=== PATIENT | male | born 1955 | race Caucasian/White ===

== ENCOUNTER 2020-06-19 07:21 | Emergency (ER) | payer OTHER, SELFPAY ==
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
[2020-06-19 07:44] VITALS: BP 152/66; PULSE 77; RESP 18; TEMP 36.7; O2SAT 100; BMI 17.2
== END 2020-06-19 08:14 | disposition home or self-care (01) ==
PROVIDERS: Emergency Provider Emergency Medicine; PCP Pediatrics
DX: Z04.2 Encounter for examination and observation following work accident (principal); L24.5 Irritant contact dermatitis due to other chemical products; E11.9 Type 2 diabetes mellitus without complications; I10 Essential (primary) hypertension; F17.200 Nicotine dependence, unspecified, uncomplicated
CPT/HCPCS: 99283; 99284

== ENCOUNTER 2022-10-25 07:31 | Outpatient (REF) | payer OTHER, MEDICAID, SELFPAY ==
[2022-10-25 11:21] LABS: MANUAL DIFF FLAG NO
[2022-10-25 12:02] LABS: Basophils Absolute Auto 0.1 X10*3/uL (0.0-0.2); Basophils Percent Auto 0.7 % (0-2); Eosinophils Absolute Auto 0.2 X10*3/uL (0.0-0.4); Eosinophils Percent Auto 1.7 % (0-4); Hematocrit 42.2 % (42.0-52.0); Hemoglobin 14.2 g/dl (14.0-18.0); Imm Gran Abs Auto 0.05 X10*3/uL (0.00-0.03); Imm Gran Pct Auto 0.5 % (0.0-0.4); Lymphocytes Percent Auto 19.3 % (20-40); Mean Corpuscular HGB Conc 33.6 g/dl (31.0-36.0); Mean Corpuscular Hemoglobin 30.9 pg (27.0-33.0); Mean Corpuscular Volume 91.9 fL (80.0-98.0); Mean Platelet Volume 10.8 fL (9.4-12.4); Monocytes Percent Auto 9.5 % (2-11); Neutrophils Absolute Auto 7.1 x10*3/uL (2.0-8.3); Neutrophils Percent Auto 68.3 % (45-73); Platelet Count 283 X10*3/uL (160-400); Red Blood Count 4.59 X10*6/uL (4.60-5.80); White Blood Count 10.4 X10*3/uL (4.8-10.8)
== END 2022-10-25 07:32 | disposition home or self-care (01) ==
LOC: HO.WFDLDS 07:31
PROVIDERS: Visit Provider Family Medicine
DX: Z00.00 Encounter for general adult medical examination without abnormal findings (principal); Z20.2 Contact with and (suspected) exposure to infections with a predominantly sexual mode of transmission
CPT/HCPCS: 36415; 80053; 80061; 84153; 84443; 85025

== ENCOUNTER 2022-10-29 07:44 | Outpatient (REF) | payer OTHER, MEDICAID, SELFPAY ==
[2022-10-29 12:54] LABS: Appearance Urine Clear; Color Urine Yellow; Glucose Urine UA Negative (Negative); Leukocyte Esterase Urine Negative (Negative); Nitrite Urine Negative (Negative); PH 6.5 (5.0-9.0); Urine Blood Negative (Negative); Urine Ketones Negative (Negative); Urine Protein Negative (Neg-Trace)
[2022-10-29 14:09] LABS: Creatinine Urine 50.99 mg/dL; Microalbum/Creatinine Ratio Ur 11.7 ug/mg cr
== END 2022-10-29 07:45 | disposition home or self-care (01) ==
LOC: HO.WFDLDS 07:44
PROVIDERS: Visit Provider Family Medicine
DX: Z00.00 Encounter for general adult medical examination without abnormal findings (principal); I10 Essential (primary) hypertension
CPT/HCPCS: 81003; 82043

== ENCOUNTER → 2022-11-12 12:37 | Outpatient (BNVA) | payer OTHER, MEDICAID, SELFPAY | PROVIDERS: PCP Family Medicine; Visit Provider Physician Assistant | DX: R63.6 Underweight (principal); R63.4 Abnormal weight loss; R05.9 Cough, unspecified; R10.9 Unspecified abdominal pain; I35.0 Nonrheumatic aortic (valve) stenosis; F17.210 Nicotine dependence, cigarettes, uncomplicated; Z68.1 Body mass index [BMI] 19.9 or less, adult | CPT/HCPCS: 99202 ==

== ENCOUNTER 2023-07-17 10:38 | Outpatient (AMB) | payer OTHER, MEDICAID, SELFPAY ==
[2023-07-17 10:52] VITALS: BP 122/70; PULSE 81; RESP 13; TEMP 36.4; O2SAT 99; BMI 15.1
--- NOTE | 2023-07-17 10:52 | MHC.PC.OV ---
Vital Signs 07/17/23 10:52 Height 5 ft 10 in Weight 105 lb BMI 15.1 BP 122/70 Blood Pressure Location Rt brachial Position Sitting Respiration 13 Pulse 81 Pulse Source Pulse Oximeter Temp 97.5 F Temp Source Temporal Artery Scan Pulse Oximetry (%) 99 Oxygen Delivery Method Room Air Intake Visit Reasons: gastro referral Flat Cutter Required: Yes Accompanied by: Self / Same As Patient Allergies No Known Allergies Allergy (Verified 07/17/23 10:58) Tobacco use date assessed: 07/17/23 Last assessed Fall Risk: 07/17/23 Dental Screening Dental Screen Date: 07/17/23 Did you have a dental visit in the last 12 months?: No Did you have a dental problem in the last 6 months where you did not have access to dental care?: No Was dental information given to patient?: Yes HPI gastro referral HPI Details 68 y/o male presents today to discuss gastro referral. Being treated for lung CA, given 5 cycles of pembrolizumab. Was on hold due to elev. LFTs. Had seen [facility] for abnormal LFTs. Weight is improving. [facility] Medical History (Updated 07/17/23 @ 11:54 by Omar Fernando) Back pain Irregular heartbeat Scoliosis Hypertension Surgical History No pertinent past surgical history Family History Mother Diabetes Father Colon cancer Bladder cancer Social History Housing: Apartment Alcohol intake: unknown Patient Tobacco Use Status: Former Tobacco user Tobacco use type: Cigarette Cigarettes Per Day: 3 Years Smoked: 50 e-Cigarette/Vaping Use: Never Used service: No Current occupational status: retired Cognitive needs: No Hearing needs: No Vision needs: No Review of Systems Const Denies chills, Denies fatigue, Denies fever(s), Denies headache(s) and Denies weakness ENT Denies dizziness and Denies headache(s) Card Denies dyspnea Resp Denies cough, Denies dyspnea, Denies wheezing and Denies other (shortness of breath) Musc Denies numbness and Denies tingling Neuro Denies dizziness, Denies headache(s), Denies numbness, Denies tingling and Denies weakness Psych Denies anxiety and Denies depression Endo Denies fatigue Aller/Immun Denies wheezing Physical exam (Primary Care) Vital Signs: Last Vital Signs Temp 97.5 F 07/17/23 10:52 Pulse 81 07/17/23 10:52 Resp 13 07/17/23 10:52 BP 122/70 07/17/23 10:52 Pulse Ox 99 07/17/23 10:52 Oxygen Delivery Method Room Air 07/17/23 10:52 BMI result Body Mass Index 15.1 Tobacco/Smoking Status: Tobacco use Status Tobacco use date assessed 07/17/23 07/17/23 11:09 Patient Tobacco Use Status Former Tobacco user 07/17/23 11:09 Tobacco use type Cigarette 07/17/23 10:59 e-Cigarette/Vaping Use Never Used 07/17/23 10:59 Const General: well developed; No acute distress Nutritional Appearance: underweight Orientation/consciousness: patient oriented x3 HENMT Head: Yes normocephalic and Yes atraumatic Eyes General: appearance normal, both eyes and all related structures Pupils: Equal, round and reactive pupils present EOM: EOMs intact bilaterally Resp Effort & Inspection: normal respiratory effort Neuro General: patient oriented x3 and gait normal Cranial nerves: Yes Equal, round and reactive pupils present Psych Affect: normal affect Assessment and Plan Assessment & Plan (1) Abnormal LFTs: Code(s): R79.89 - Other specified abnormal findings of blood chemistry Plan: LFTs?had?been?significantly?elevated,?likely?secondary?to?his?chemotherapy?which?was?held. Most?recent?LFTs?are?back?in?normal?range. Referring?him?to??as?per?patient?request. (2) Pancoast tumor of right lung: Code(s): C34.11 - Malignant neoplasm of upper lobe, right bronchus or lung Plan: Followed?by? Recently?had?his?chemotherapy?held?due?to?elevations?in?his?liver?enzymes?and?these?are?back?within?normal?range. Follow-up?with??as?recommended (3) Underweight: Code(s): R63.6 - Underweight Plan: Significantly?underweight?secondary?to?malignancy?as?well?as?COPD. He?is?using?[employer]?instant?breakfast?for?additional?calories. Was?unable?to?afford?Ensure. Continue?the?above Orders: Referrals Gastroenterology Referral C34.90 - Malignant neoplasm of unspecified part of unspecified bronchus or lung, R10.9 - Unspecified abdominal pain, R79.89 - Other specified abnormal findings of blood chemistry, Z12.11 - Encounter for screening for malignant neoplasm of colon Coding Level of Care Code Est Pt Level 4 (44281) Diagnoses Abnormal LFTs R79.89 Pancoast tumor of right lung C34.11 Underweight R63.6
== END 2023-07-17 12:10 | disposition home or self-care (01) ==
PROVIDERS: PCP Family Medicine; Visit Provider Family Medicine
DX: R79.89 Other specified abnormal findings of blood chemistry (principal); C34.11 Malignant neoplasm of upper lobe, right bronchus or lung; R63.6 Underweight
CPT/HCPCS: 99214

== ENCOUNTER 2023-08-14 12:37 | Outpatient (AMB) | payer OTHER, SELFPAY ==
[2023-08-14 13:15] VITALS: BP 98/62; PULSE 110; RESP 12; TEMP 36.9; O2SAT 100
--- NOTE | 2023-08-14 13:15 | MHC.PC.OV ---
Vital Signs 08/14/23 13:15 Weight 100 lb BP 98/62 Blood Pressure Location Lt brachial Position Sitting Respiration 12 Pulse 110 H Pulse Source Auscultation Temp 98.5 F Temp Source Temporal Artery Scan Pulse Oximetry (%) 100 Intake Visit Reasons: issue with stools Intake Note: Patient is having diarrhea, sometimes small rounds of BM. Allergies No Known Allergies Allergy (Verified 08/14/23 13:24) Medication List - Last Reconciled 08/14/23 by Rohan Kong MD albuterol sulfate 90 mcg/actuation (ProAir HFA) 2 puffs inhalation Q4-6H PRN 30 days gabapentin 100 mg PO BEDTIME ibuprofen 400 mg PO Q8H mycophenolate mofetil 1,000 mg PO DAILY oxycodone 10 mg PO DAILY PRN pantoprazole 20 mg PO DAILY sulfamethoxazole-trimethoprim 800-160 mg 1 tab orally Fri, Fri, Friday; Tobacco use date assessed: 08/14/23 Fall risk assessment: No Falls in past year Last assessed Fall Risk: 08/14/23 Dental Screening Dental Screen Date: 08/14/23 Did you have a dental visit in the last 12 months?: No Did you have a dental problem in the last 6 months where you did not have access to dental care?: No Was dental information given to patient?: Patient declined HPI issue with stools HPI Details 68 y/o male presents with complaints of abnormal stools. He reports yellow, fluff stools. Pt denies any abdominal pain. He denies any nausea/vomiting. He denies any blood in stool. [facility] Medical History Back pain Irregular heartbeat Scoliosis Hypertension Surgical History No pertinent past surgical history Family History Mother Diabetes Father Colon cancer Bladder cancer Social History Housing: Apartment Alcohol intake: unknown Patient Tobacco Use Status: Former Tobacco user Tobacco use type: Cigarette Cigarettes Per Day: 3 Years Smoked: 50 e-Cigarette/Vaping Use: Never Used service: No Current occupational status: retired Cognitive needs: No Hearing needs: No Vision needs: No Questionnaire PHQ-9 Over the last 2 weeks, how often have you been bothered by any of the following problems? 1. Little interest or pleasure in doing things: not at all 2. Feeling down, depressed, or hopeless: not at all 3. Trouble falling or staying asleep, or sleeping too much: not at all 4. Feeling tired or having little energy: not at all 5. Poor appetite or overeating: not at all 6. Feeling bad about yourself - or that you are a failure or have let yourself or your family down: not at all 7. Trouble concentrating on things, such as reading the newspaper or watching television: not at all 8. Moving or speaking so slowly that other people could have noticed. Or the opposite - being so fidgety or restless that you have been moving around a lot more than usual: not at all 9. Thoughts that you would be better off or of hurting yourself in some way: not at all Total score: 0 Source: Developed by Drs. Chito Rodríguez, Angeles Chen, Aayush Lamas and colleagues, with an educational alex from [employer]. Thrive Questionnaire Date Thrive assessed: 08/14/23 I am a: Patient What is your living situation today?: I have a steady place to live Within the past 12 months, did the food you bought not last and you didn't have the money to get more?: Never true Within the past 12 months, did you worry whether your food would run out before you got money to buy more?: Never true Do you have trouble paying for medicines?: No Do you have trouble getting transportation to medical appointments?: No Do you have trouble paying your heating and electricity bill?: No Do you have trouble taking care of your child, family member or friend?: No Do you have trouble with day-to-day activities such as bathing, preparing meals, shopping, managing finances, etc.?: No Are you currently unemployed and looking for a job?: No Are you interested in more education?: No THRIVE Score: 0 AUDIT C Alcohol Use Questionnaire (AUDIT-C) 1. How often do you have a drink containing alcohol?: Never 3. How often do you have six or more drinks on one occasion?: Never Total Score: 0 JOAQUIN-7 AMB Questionnaire JOAQUIN-7 Date JOAQUIN - 7 assessed: 08/14/23 Feeling nervous, anxious, or on edge: 0 = Not at all Not being able to stop or control worryin = Not at all Worrying too much about different things: 0 = Not at all Trouble relaxin = Not at all Being so restless that it is hard to sit still: 0 = Not at all Becoming easily annoyed or irritable: 0 = Not at all Feeling afraid as if something awful might happen: 0 = Not at all Total JOAQIUN-7 score (0-4 normal; 5-9 mild; 10-14 moderate; 15-21 severe): 0 Source: Developed by Drs. Chito Rodríguez, Angeles Chen, Aayush Lamas and colleagues, with an educational alex from [employer]. Review of Systems Const Denies chills, Denies fatigue, Denies fever(s), Denies headache(s) and Denies weakness ENT Denies dizziness and Denies headache(s) Card Denies dyspnea Resp Denies cough, Denies dyspnea, Denies wheezing and Denies other (shortness of breath) Musc Denies numbness and Denies tingling Neuro Denies dizziness, Denies headache(s), Denies numbness, Denies tingling and Denies weakness Psych Denies anxiety and Denies depression Endo Denies fatigue Aller/Immun Denies wheezing Physical exam (Primary Care) Vital Signs: Last Vital Signs Temp 98.5 F 08/14/23 13:15 Pulse 110 H 08/14/23 13:15 Resp 12 08/14/23 13:15 BP 98/62 08/14/23 13:15 Pulse Ox 100 08/14/23 13:15 Tobacco/Smoking Status: Tobacco use Status Tobacco use date assessed 08/14/23 08/14/23 13:25 Patient Tobacco Use Status Former Tobacco user 08/14/23 13:22 Tobacco use type Cigarette 08/14/23 13:22 e-Cigarette/Vaping Use Never Used 08/14/23 13:22 PHQ-9: PHQ-9 Score PHQ-9: Total score 0 08/14/23 13:34 Thrive Assessment: Date of Thrive Assessment Date Thrive assessed 08/14/23 08/14/23 13:27 Const General: well developed; No acute distress Nutritional Appearance: well nourished Orientation/consciousness: patient oriented x3 [facility] Head: Yes normocephalic and Yes atraumatic Eyes General: appearance normal, both eyes and all related structures Pupils: Equal, round and reactive pupils present EOM: EOMs intact bilaterally Resp Effort & Inspection: normal respiratory effort Neuro General: patient oriented x3 and gait normal Cranial nerves: Yes Equal, round and reactive pupils present Psych Affect: normal affect Assessment and Plan Assessment & Plan (1) Colitis: Code(s): K52.9 - Noninfective gastroenteritis and colitis, unspecified Plan: Patient?has?been?on?pembrolizumab, an?immune?checkpoint?inhibitor, and?developed?ICPI mediated transaminitis?and?likely mild?colitis. ?This?was?discontinued?and?he?was?put?on?CellCept?which?is?being?tapered?down. As?it?is?being?tapered?down,?diarrhea has begun. Will?rule?out?infection;?Will?check?stool?studies?including?C?diff?and?leukocyte.??Checking?GI?panel. However,?patient?has?no?pain?and?no?blood?in?stools. Will?give?him?a?short?course?of?prednisone. Hydrate?well Avoid?GI?irritants?such?as?acidic?foods.??Avoid?dairy. He?has?an?upcoming?appointment?with?his?Hematology-Oncology?specialist?and?should?follow-up?with?them. (2) Abnormal stools: Code(s): R19.5 - Other fecal abnormalities Plan: As?above Orders: Orders CDiff Gene PCR Today R19.7 - Diarrhea, unspecified Leukocytes Stool Qualitative Today R19.5 - Other fecal abnormalities, R19.7 - Diarrhea, unspecified Comprehensive Met. Panel Today R19.7 - Diarrhea, unspecified Complete Blood Count Auto Diff Today R19.7 - Diarrhea, unspecified, Z00.00 - Encounter for general adult medical examination without abnormal findings GI Panel Today R19.7 - Diarrhea, unspecified Coding Level of Care Code Est Pt Level 3 (61916) Diagnoses Colitis K52.9 Abnormal stools R19.5
== END 2023-08-14 14:21 | disposition home or self-care (01) ==
PROVIDERS: PCP Family Medicine; Visit Provider Family Medicine
DX: K52.9 Noninfective gastroenteritis and colitis, unspecified (principal); R19.5 Other fecal abnormalities
CPT/HCPCS: 99213

== ENCOUNTER 2023-08-18 12:23 | Outpatient (REF) | payer OTHER, SELFPAY ==
[2023-08-18 13:23] LABS: Leukocytes Stool Qualitative NEGATIVE (NEGATIVE)
[2023-08-18 13:46] LABS: CDiff Gene PCR NEGATIVE (Negative)
[2023-08-18 14:55] LABS: Adenovirus F 40/41 Not Detected (Not Detect.); Astrovirus Not Detected (Not Detect.); Campylobacter Not Detected (Not Detect.); Cryptosporidium Not Detected (Not Detect.); Cyclospora cayetanensis Not Detected (Not Detect.); E. coli EAEC Not Detected (Not Detect.); E. coli EPEC Not Detected (Not Detect.); E. coli ETEC Not Detected (Not Detect.); E. coli STEC Not Detected (Not Detect.); Entamoeba histolytica Not Detected (Not Detect.); Giardia lamblia Not Detected (Not Detect.); Norovirus GI/GII Not Detected (Not Detect.); Plesiomonas shigelloides Not Detected (Not Detect.); Rotavirus A Not Detected (Not Detect.); Salmonella Not Detected (Not Detect.); Sapovirus Not Detected (Not Detect.); Shigella sp./EIEC Not Detected (Not Detect.); Vibrio Not Detected (Not Detect.); Vibrio Cholerae Not Detected (Not Detect.); Yersinia enterocolitica Not Detected (Not Detect.)
== END 2023-08-18 12:24 | disposition home or self-care (01) ==
LOC: HO.LNP 12:23
PROVIDERS: Visit Provider Family Medicine
DX: R19.7 Diarrhea, unspecified (principal); R19.5 Other fecal abnormalities
CPT/HCPCS: 87493; 87507; 89055

== ENCOUNTER 2023-10-16 08:44 | Outpatient (AMB) | payer OTHER, SELFPAY ==
--- NOTE | 2023-10-16 09:01 | MHC.PC.OV ---
Vital Signs 10/16/23 09:02 Height 5 ft 10 in Weight 96 lb 2 oz BMI 13.8 BP 100/60 Blood Pressure Location Rt brachial Position Sitting Pulse 65 Pulse Source Pulse Oximeter Pulse Oximetry (%) 98 Oxygen Delivery Method Room Air Intake Visit Reasons: f/u chronic conditions Intake Note: Patient is here for follow up on chronic conditions. Allergies No Known Allergies Allergy (Verified 10/16/23 09:05) Medication List - Last Reconciled 10/16/23 by Rohan Kong MD albuterol sulfate 90 mcg/actuation (ProAir HFA) 2 puffs inhalation Q4-6H PRN 30 days gabapentin 100 mg PO BEDTIME ibuprofen 400 mg PO Q8H [id number] 12,000-38,000 -60,000 unit (Creon) 1 cap PO TID loperamide (Anti-Diarrheal (loperamide)) 2 mg PO Q6H PRN 30 days mycophenolate mofetil 1,000 mg PO DAILY oxycodone 10 mg PO DAILY PRN pantoprazole 20 mg PO DAILY prednisone 40 mg (2 x 20 mg) PO DAILY 4 days Tobacco use date assessed: 10/16/23 Fall risk assessment: No Falls in past year Last assessed Fall Risk: 10/16/23 Dental Screening Dental Screen Date: 08/14/23 HPI f/u chronic conditions HPI Details 68 y/o male presents to f/u chronic conditions. 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 They plan to see pt in [address] scans. Has lost some weight since visit on 08/14/23 - from 100lbs to 96 lbs. He states he is tolerating food and is on Creon [facility] Medical History Back pain Irregular heartbeat Scoliosis Hypertension Surgical History No pertinent past surgical history Family History Mother Diabetes Father Colon cancer Bladder cancer Social History Housing: Apartment Alcohol intake: unknown Patient Tobacco Use Status: Former Tobacco user Tobacco use type: Cigarette Cigarettes Per Day: 3 Years Smoked: 50 e-Cigarette/Vaping Use: Never Used service: No Current occupational status: retired Cognitive needs: No Hearing needs: No Vision needs: No Questionnaire Thrive Questionnaire Date Thrive assessed: 08/14/23 JOAQUIN-7 AMB Questionnaire JOAQUIN-7 Date JOAQUIN - 7 assessed: 08/14/23 Source: Developed by Drs. Chito Rodríguez, Angeles Chen, Aayush Lamas and colleagues, with an educational alex from [employer]. Review of Systems Const Denies chills, Denies fatigue, Denies fever(s), Denies headache(s) and Denies weakness ENT Denies dizziness and Denies headache(s) Card Denies dyspnea Resp Denies cough, Denies dyspnea, Denies wheezing and Denies other (shortness of breath) Musc Denies numbness and Denies tingling Neuro Denies dizziness, Denies headache(s), Denies numbness, Denies tingling and Denies weakness Psych Denies anxiety and Denies depression Endo Denies fatigue Aller/Immun Denies wheezing Physical exam (Primary Care) Vital Signs: Last Vital Signs Pulse 65 10/16/23 09:02 BP 100/60 10/16/23 09:02 Pulse Ox 98 10/16/23 09:02 Oxygen Delivery Method Room Air 10/16/23 09:02 BMI result Body Mass Index 13.8 Tobacco/Smoking Status: Tobacco use Status Tobacco use date assessed 10/16/23 10/16/23 09:08 Patient Tobacco Use Status Former Tobacco user 10/16/23 09:08 Tobacco use type Cigarette 10/16/23 09:08 e-Cigarette/Vaping Use Never Used 10/16/23 09:08 Thrive Assessment: Date of Thrive Assessment Date Thrive assessed 08/14/23 10/16/23 09:08 Const General: well developed; No acute distress Nutritional Appearance: underweight Orientation/consciousness: patient oriented x3 HENMT Head: Yes normocephalic and Yes atraumatic Eyes General: appearance normal, both eyes and all related structures Pupils: Equal, round and reactive pupils present EOM: EOMs intact bilaterally Resp Effort & Inspection: normal respiratory effort Auscultation: clear to auscultation bilaterally Cardio Rate: regular rate Rhythm: regular rhythm Heart sounds: S1 normal heart sound present, S2 normal heart sound present, no gallops, no murmurs and no rubs Neuro General: patient oriented x3 and gait normal Cranial nerves: Yes Equal, round and reactive pupils present Psych Affect: normal affect Assessment and Plan Assessment & Plan (1) Adenocarcinoma of right lung: Code(s): C34.91 - Malignant neoplasm of unspecified part of right bronchus or lung Plan: Saw?Hematology-Oncology?recently?and?no?progression?of?disease Breathing?easily No?longer?smokes Takes?his?medications?for?COPD Follow-up?with?Heme-Onc?as?recommended (2) Underweight: Code(s): R63.6 - Underweight Plan: Still?significantly?underweight?and?lost?a?few?more?lb. He?has?protein?shakes?and?is?beginning?to?eat?well?since?starting?Creon, pancreatic?enzyme Encouraged?plenty?of?high-calorie?foods?as?tolerated?and?continue?Creon Continue?protein?shakes Will?follow (3) COPD (chronic obstructive pulmonary disease): Code(s): J44.9 - Chronic obstructive pulmonary disease, unspecified Plan: As?above,?patient?is?breathing?easily?and?taking?his?inhaled?medication Coding Level of Care Code Est Pt Level 3 (24908) Diagnoses Adenocarcinoma of right lung C34.91 Underweight R63.6 COPD (chronic obstructive pulmonary disease) J44.9
[2023-10-16 09:02] VITALS: BP 100/60; PULSE 65; O2SAT 98; BMI 13.8
== END 2023-10-16 09:35 | disposition home or self-care (01) ==
PROVIDERS: PCP Family Medicine; Visit Provider Family Medicine
DX: C34.91 Malignant neoplasm of unspecified part of right bronchus or lung (principal); R63.6 Underweight; J44.9 Chronic obstructive pulmonary disease, unspecified
CPT/HCPCS: 99213

== ENCOUNTER 2024-01-22 08:42 | Outpatient (AMB) | payer OTHER, SELFPAY ==
--- NOTE | 2024-01-22 08:59 | A.OFFPC_ITS ---
Vital Signs 01/22/24 09:04 Height 5 ft 10 in Weight 98 lb 2 oz BMI 14.1 BP 122/60 Blood Pressure Location Rt brachial Position Sitting Respiration 15 Pulse 87 Pulse Source Pulse Oximeter Temp 97.7 F Temp Source Temporal Artery Scan Pulse Oximetry (%) 96 Oxygen Delivery Method Room Air Intake Visit Reasons: f/u chronic conditions Intake Note: Patient has no concerns as of right now. Multiple Drum Sander Required: No Accompanied by: Self / Same As Patient Allergies No Known Allergies Allergy (Verified 01/22/24 09:11) Tobacco use date assessed: 10/16/23 Fall risk assessment: No Falls in past year Last assessed Fall Risk: 01/22/24 Dental Screening Dental Screen Date: 08/14/23 HPI f/u chronic conditions HPI Details 68 y/o male presents to f/u chronic cond itions. Has gained some weight and pt states he has been eating better. REPLACED BY [facility] Medical History Back pain Irregular heartbeat Scoliosis Hypertension Surgical History No pertinent past surgical history Family History Mother Diabetes Father Colon cancer Bladder cancer Social History Housing: Apartment Alcohol intake: unknown Patient Tobacco Use Status: Former Tobacco user Tobacco use type: Cigarette Cigarettes Per Day: 3 Years Smoked: 50 e-Cigarette/Vaping Use: Never Used service: No Current occupational status: retired Cognitive needs: No Hearing needs: No Vision needs: No Questionnaire PHQ-9 Over the last 2 weeks, how often have you been bothered by any of the following problems? 1. Little interest or pleasure in doing things: not at all 2. Feeling down, depressed, or hopeless: not at all 3. Trouble falling or staying asleep, or sleeping too much: not at all 4. Feeling tired or having little energy: not at all 5. Poor appetite or overeating: not at all 6. Feeling bad about yourself - or that you are a failure or have let yourself or your family down: not at all 7. Trouble concentrating on things, such as reading the newspaper or watching television: not at all 8. Moving or speaking so slowly that other people could have noticed. Or the opposite - being so fidgety or restless that you have been moving around a lot more than usual: not at all 9. Thoughts that you would be better off or of hurting yourself in some way: not at all Total score: 0 Depression Screening Interpretation: Negative Depression Screening Done: Yes 17782 - PHQ-9 Billing: Yes Source: Developed by Drs. Chito Rodríguez, Angeles Chen, Aayush Lamas and colleagues, with an educational alex from [employer]. Thrive Questionnaire Date Thrive assessed: 08/14/23 JOAQUIN-7 AMB Questionnaire JOAQUIN-7 Date JOAQUIN - 7 assessed: 01/22/24 Feeling nervous, anxious, or on edge: 0 = Not at all Not being able to stop or control worryin = Not at all Worrying too much about different things: 0 = Not at all Trouble relaxin = Not at all Being so restless that it is hard to sit still: 0 = Not at all Becoming easily annoyed or irritable: 0 = Not at all Feeling afraid as if something awful might happen: 0 = Not at all Total JOAQUIN-7 score (0-4 normal; 5-9 mild; 10-14 moderate; 15-21 severe): 0 Source: Developed by Drs. Chito Rodríguez, Angeles Chen, Aayush Lamas and colleagues, with an educational alex from [employer]. JOAQUIN-7 Assessment Billing JOAQUIN-7 Assessment Tool: JOAQUIN-7 Assessment 39500 Review of Systems Const Denies chills, Denies fatigue, Denies fever(s), Denies headache(s) and Denies weakness ENT Denies dizziness and Denies headache(s) Card Denies chest pain, Denies lightheadedness, Denies dyspnea and Denies other (Palpitations) Resp Denies cough, Denies dyspnea, Denies wheezing and Denies other ( shortness of breath) Musc Denies numbness and Denies tingling Neuro Denies dizziness, Denies headache(s), Denies numbness, Denies tingling, Denies paresthesias and Denies weakness Psych Denies anxiety and Denies depression Endo Denies fatigue Aller/Immun Denies wheezing Physical exam (Primary Care) Vital Signs: Last Vital Signs Temp 97.7 F 01/22/24 09:04 Pulse 87 01/22/24 09:04 Resp 15 01/22/24 09:04 BP 122/60 01/22/24 09:04 Pulse Ox 96 01/22/24 09:04 Oxygen Delivery Method Room Air 01/22/24 09:04 BMI result Body Mass Index 14.1 Tobacco/Smoking Status: Tobacco use Status Tobacco use date assessed 10/16/23 01/22/24 09:01 Patient Tobacco Use Status Former Tobacco user 01/22/24 09:01 Tobacco use type Cigarette 01/22/24 09:01 e-Cigarette/Vaping Use Never Used 01/22/24 09:01 PHQ-9: PHQ-9 Score PHQ-9: Total score 0 01/22/24 09:14 Depression Screening Interpretation: Negative Thrive Assessment: Date of Thrive Assessment Date Thrive assessed 08/14/23 01/22/24 09:01 Const General: no acute distress and well developed Nutritional Appearance: well nourished Orientation/consciousness: patient oriented x3 HENMT Head: Yes normocephalic and Yes atraumatic Eyes General: appearance normal, both eyes and all related structures Pupils: Equal, round and reactive pupils present EOM: EOMs intact bilaterally Resp Effort & Inspection: normal respiratory effort Auscultation: clear to auscultation bilaterally Cardio Rate: regular rate Rhythm: regular rhythm Heart sounds: S1 normal heart sound present, S2 normal heart sound present, no gallops, no murmurs and no rubs Neuro General: patient oriented x3 and gait normal Cranial nerves: Yes Equal, round and reactive pupils present Psych Affect: normal affect Assessment and Plan Assessment & Plan (1) Adenocarcinoma of right lung: Code(s): C34.91 - Malignant neoplasm of unspecified part of right bronchus or lung Plan: Followed?by ??and?patient?says?he?had?recent?visit?though?I?do?not?have?the?note.? ?Recent?CT?scan?December??and?patient?says?that??said?it?looked?stable .??Again,?I?do?not?have?the?report?but?will?request. Breathing?easy?and?patient?feels?well. Lungs?are?CTA (2) Weight loss: Comment: Abnormal, question etiology Code(s): R63.4 - Abnormal weight loss Plan: Weight?loss?has?stopped?and?patient?gained?back?a?couple?of?lb He?is?using?protein?supplement?drink?and?I?encouraged?this (3) Underweight: Code(s): R63.6 - Underweight Plan: Patient?remains?underweight?but?has?gained?back?a?couple?of?lb As?above,?encouraged?meals?on?wheels?and?supplement?drinks. Orders: Orders Comprehensive [place]. Panel Fast Today Z00.00 - Encounter for general adult medical examination without abnormal findings Lipid Panel Today Z00.00 - Encounter for general adult medical examination without abnormal findings Vitamin B12 and Folate Today E53.8 - Deficiency of other specified B group vitamins Complete Blood Count Auto Diff Today Z00.00 - Encounter for general adult medical examination without abnormal findings Microalbumin, Random (w Creat) Today I10 - Essential (primary) hypertension Prostate Specific Antigen Scr Today Z12.5 - Encounter for screening for malignant neoplasm of prostate TSH reflex Free T4 Today Z00.00 - Encounter for general adult medical examination without abnormal findings UA and rflx microscopic Today Z00.00 - Encounter for general adult medical examination without abnormal findings Vitamin D 25-OH Total Today E55.9 - Vitamin D deficiency, unspecified Coding Level of Care Code Est Pt Level 3 (31655) Diagnoses Adenocarcinoma of right lung C34.91 Weight loss R63.4 Underweight R63.6 Additional Codes JOAQUIN-7 Assessment Billing - JOAQUIN-7 Assessment Tool: JOAQUIN-7 Assessment 44852 ([id number])
[2024-01-22 09:04] VITALS: BP 122/60; PULSE 87; RESP 15; TEMP 36.5; O2SAT 96; BMI 14.1
== END 2024-01-22 12:05 | disposition home or self-care (01) ==
PROVIDERS: PCP Family Medicine; Visit Provider Family Medicine
DX: C34.91 Malignant neoplasm of unspecified part of right bronchus or lung (principal); R63.4 Abnormal weight loss; R63.6 Underweight
CPT/HCPCS: 99213

== ENCOUNTER 2024-01-29 07:47 | Outpatient (REF) | payer OTHER, SELFPAY ==
[2024-01-29 11:13] LABS: MANUAL DIFF FLAG NO
[2024-01-29 11:25] LABS: Appearance Urine Clear; Color Urine Yellow; Glucose Urine UA Negative (Negative); Leukocyte Esterase Urine Trace (Negative); Nitrite Urine Negative (Negative); PH 6.5 (5.0-9.0); Specific Gravity - Urine 1.015 (1.005-1.025); UMIC TRIGGER UA YES; Urine Blood Negative (Negative); Urine Ketones Negative (Negative); Urine Protein Negative (Neg-Trace)
[2024-01-29 11:30] LABS: Basophils Absolute Auto 0.1 X10*3/uL (0.0-0.2); Basophils Percent Auto 1.1 % (0-2); Eosinophils Absolute Auto 0.1 X10*3/uL (0.0-0.4); Hemoglobin 14.6 g/dl (14.0-18.0); Imm Gran Abs Auto 0.04 X10*3/uL (0.00-0.03); Imm Gran Pct Auto 0.4 % (0.0-0.4); Lymphocytes Absolute Auto 1.6 X10*3/uL (1.2-4.9); Mean Corpuscular Hemoglobin 31.4 pg (27.0-33.0); Mean Corpuscular Volume 92.5 fL (80.0-98.0); Mean Platelet Volume 10.6 fL (9.4-12.4); Monocytes Percent Auto 10.6 % (2-11); Neutrophils Absolute Auto 6.5 x10*3/uL (2.0-8.3); Neutrophils Percent Auto 69.9 % (45-73); Platelet Count 205 X10*3/uL (160-400); Red Blood Count 4.65 X10*6/uL (4.60-5.80); Red Cell Distribution Width 13.3 % (11.0-16.0); White Blood Count 9.3 X10*3/uL (4.8-10.8)
[2024-01-29 11:32] LABS: Bacteria Urine None Seen (None Seen); Hyaline Casts Urine 0-2 /LPF (0-2); RBC Urine 0-2 /HPF (0-2); Squamous Epithelial Cell Urine 0-2 /HPF (0-2); WBC Urine 0-5 /HPF (0-5)
[2024-01-29 11:48] LABS: Alanine Aminotransferase 30 U/L (0-40); Albumin Level 4.3 g/dL (3.5-5.0); Alkaline Phosphatase 148 U/L (39-117); Anion Gap 14 (12-20); Aspartate Amino Transferase 34 U/L (5-37); Bilirubin Total 0.7 mg/dL (0.0-1.0); Blood Urea Nitrogen 16 mg/dL (9-16); Calcium 9.6 mg/dL (8.4-10.2); Carbon Dioxide 24 mmol/L (22-29); Chloride 105 mmol/L (96-108); Cholesterol 154 mg/dL (<200); Estimated Glomerular Filt Rate > 60; Glucose Fasting 91 mg/dL (60-99); Glucose Random 90 mg/dL (60-115); HDL Cholesterol 63 mg/dL (>40); LDL Cholesterol Calculated 80 mg/dL (<100); Potassium 4.4 mmol/L (3.3-5.1); Sodium 139 mmol/L (135-145); Total Protein 6.7 g/dL (6.5-8.0); Triglycerides 59 mg/dL (<150)
[2024-01-29 11:54] LABS: Creatinine Urine 120.02 mg/dL; Microalbum/Creatinine Ratio Ur 19.9 ug/mg cr (<30)
[2024-01-29 12:06] LABS: TSH reflex Free T4 3.67 uIU/mL (0.32-4.0); Vitamin D 25-OH Total 38.4 ng/mL (>30)
[2024-01-29 12:10] LABS: Folate 13.3 ng/mL (> or = 4.0); Prostate Specific Antigen Scr 0.18 ng/mL (<0.05-4.0); Vitamin B12 540 pg/mL (200-900)
== END 2024-01-29 07:48 | disposition home or self-care (01) ==
LOC: HO.WFDLDS 07:47
PROVIDERS: Visit Provider Family Medicine
DX: Z00.00 Encounter for general adult medical examination without abnormal findings (principal); E53.8 Deficiency of other specified B group vitamins; Z12.5 Encounter for screening for malignant neoplasm of prostate; R19.7 Diarrhea, unspecified; I10 Essential (primary) hypertension; E55.9 Vitamin D deficiency, unspecified
CPT/HCPCS: 36415; 80053; 80061; 81001; 82043; 82306; 82570; 82607; 82746; 84153; 84443; 85025

== ENCOUNTER 2024-04-05 12:40 | Outpatient (AMB) | payer OTHER, SELFPAY ==
--- OUTSIDE RECORDS SUMMARY | 2024-04-05 12:42 | XMS_ITS | Continuity of Care Document ---
Author Organization [facility] Address [address] [place] [address]- Care Team Providers Care Lap Polisher Name Role Phone Rohan Kong MD Primary Care Physician Encounter [facility] Date(s): 07/18/23 - 08/14/23 [facility] [address] [place] [id number] Discharge Disposition: A-D/C Home Attending Physician: Logan Neri MD Admitting Physician: Logan Neri MD Referring Physician: Rohan Kong MD Allergies, Adverse Reactions, Alerts No Known Medication Allergies Immunizations Given and Recorded Vaccine Date Status Refusal Reason SARS-CoV-2 (COVID-19) mRNA-1273 vaccine 07/12/21 R ecorded SARS-CoV-2 (COVID-19) mRNA-1273 vaccine 12/05/20 R ecorded SARS-CoV-2 (COVID-19) mRNA-1273 vaccine 11/01/20 R ecorded Medications acetaminophen 325 mg oral tablet 650 mg, By Mouth, Every 4 hours, PRN, Temperature Greater than 100.5, Refills 0, Maintenance, Pain , Mild, 11/15/22 16:29:00 EDT, Partial fill upon patient request if the prescription is for a schedule II opioid drug. Start Date: 11/15/22 Status: Ordered gabapentin 100 mg oral capsule 100 mg, 1, capsule, By Mouth, 3 times a day, # 90 capsule, Refills 5, Tot. Refills 5, Maintenance, 06/10/23 18:14:00 EST, Route to Pharmacy Electronically, [facility] #[id number], Partial fill upon patient request if the prescription is for a jan... Start Date: 06/10/23 Status: Ordered mirtazapine 7.5 mg oral tablet 1 tablet = 7.5 mg, By Mouth, Daily at bedtime, # 30 tablet, 0 Refills, Maintenance, 12/17/22 11:21:00 EDT, Partial fill upon patient request if the prescription is for a schedule II opioid drug. Start Date: 12/17/22 Status: Ordered Multivit Therapeutic/Minerals Tablet 1 tablet, By Mouth, Daily, 0 Refills, Maintenance, 11/15/22 16:30:00 EDT, Tablet, Partial fill uponpatient request if the prescription is for a schedule II opioid drug. Start Date: 11/15/22 Status: Ordered mycophenolate mofetil 500 mg oral tablet 2 tablet, By Mouth, 2 times a day, # 60 tablet, 4 Refills, Maintenance, 06/26/23 10:12:00 EST, [facility] #[id number], 178, cm, 06/17/23 10:46:00 EST, Height, 47.2, kg, 06/10/23 9:31:00 EST, DryWeight Start Date: 06/26/23 Status: Ordered nicotine 14 mg/24 hr transdermal film, extended release APPLY 1 PATCH TOPICALLY DAILY FOR 14 DAYS. NOT COVERED Start Date: 12/17/22 Status: Ordered omeprazole 20 mg oral enteric coated capsule TAKE 1 CAPSULE BY MOUTH EVERY DAY Start Date: 12/17/22 Status: Ordered ondansetron 4 mg oral tablet 1 tablet = 4 mg, By Mouth, Every 8 hours, PRN Nausea & Vomiting, # 12 tablet, 0 Refills, Maintenance, 01/13/23 10:51:00 EDT, [facility]/pharmacy #[id number], Partial fill upon patient request if the prescription is for a schedule II opioid drug., 178, cm, 12/30/22... Start Date: 01/13/23 Status: Ordered oxyCODONE 10 mg oral tablet 1 tablet = 10 mg, By Mouth, Every 4 hours, PRN as needed for pain, # 50 tablet, 0 Refills, Maintenance, 07/31/23 12:04:00 EST, Tablet, [facility] #[id number], Partial fill upon patient request if the prescription is for a schedule II opioid drug.... Start Date: 07/31/23 Status: Ordered pantoprazole 20 mg oral delayed release tablet 1 tablet, By Mouth, Daily, # 90 tablet, 0 Refills, Maintenance, 07/31/23 8:50:00 EST, 178, cm, 07/22/23 9:43:00 EST, Height, 47.3, kg, 07/22/23 9:43:00 EST, Dry Weight Start Date: 07/31/23 Status: Ordered polyethylene glycol 3350 oral powder for reconstitution = 17 Gm, By Mouth, Daily, PRN Constipation, dissolve in water before taking, # 12 each, 0 Refills, Maintenance, 01/27/23 16:21:00 EDT, REC Powder, [facility] #[id number], Partial fill upon patient request if the prescription is for a schedule II... Start Date: 01/27/23 Status: Ordered predniSONE 20 mg oral tablet 2 tablet = 40 mg, By Mouth, Daily, Continue 2 tablets daily until told to decrease. Must take with food., # 60 tablet, 0 Refills, Maintenance, 06/11/23 13:25:00 EST, Tablet, [facility] #[id number], Partial fill upon patient request if the prescri... Start Date: 06/11/23 Status: Ordered sucralfate 1 gm oral tablet TAKE 1 TABLET BY MOUTH FOUR TIMES A DAY BEFORE MEALS & BEDTIME FOR 21 DAYS Start Date: 12/17/22 Status: Ordered Problem List Condition Confirmation Course Effective Dates Status Health St [facility] Informant Tobacco abuse Confirmed Active Underweight Confirmed Active Vital Signs Most recent to oldest [Reference Range]: 1 Height 178 cm (07/22/23 9:43 AM) Weight 47.3 kg (07/22/23 9:43 AM) Oxygen Saturation [94-100 %] 100 % (07/22/23 9:43 AM) Pulse Rate [55-90 bpm] 82 bpm (07/22/23 9:43 AM) Body Mass Index [18.5-24.99 kg/m2] 14.93 kg/m2 *L* (07/22/23 9:43 AM) Blood Pressure [90-138/55-84 mm Hg] 110/ 83mm Hg (07/22/23 9:43 AM) Temperature [96.8-100.4 DegF] 97.6 DegF (07/22/23 9:43 AM) Mode of Delivery (Oxygen) Room air (07/22/23 9:43 AM) Blood pressure sites Arm, right (07/22/23 9:43 AM) Temperature Route Oral (07/22/23 9:43 AM) Dry Weight 47.3 kg (07/22/23 9:43 AM) Weight Obtained Via Standing scale (07/22/23 9:43 AM) Dry Weight Obtained Via Standing scale (07/22/23 9:43 AM) Social History Social History Type Response Smoking Status Former smoker, quit more than 30 days ago entered on: 03/11/23 Sex Patient Care team information Care Team Personnel Name: Rohan Kong MD Position: [facility] Outreach Member Role: PCP Address: Address: [address] [place] [id number] Name: Светлана Ellis RN Position: [facility] Onco RN Member Role: Primary Care Nurse Care Team Related Persons Name: WILLIAMS CLAUDIO Address: [address] [address] Name: EITAN ORNELAS
--- OUTSIDE RECORDS SUMMARY | 2024-04-05 12:42 | XMS_ITS | Continuity of Care Document ---
Author Organization [facility] Address [address] [place] [address]- Care Team Providers Care Racing Secretary Name Role Phone Dilan CASTRO, Rohan Moreau Primary Care Physician [place] [facility] [place] 05/09/23 - 06/08/23 [facility] [address] [place] [id number] Allergies, Adverse Reactions, Alerts No Known Medication [...] opioid drug. Start Date: 11/15/22 Status: Ordered Bactrim DS 800 mg-160 mg oral tablet 1 tablet, By Mouth, Every Friday, Friday and Friday, for 30 days, # 13 tablet, 1 Refills, Acute 07/27/23 9:15:00 EST, 05/28/23 9:15:00 EST, [facility] #[id number], Partial fill upon patient request if the prescription is for a schedule II opio... Start Date: 05/28/23 Stop Date: 07/27/23 Status: Ordered gabapentin 100 mg oral capsule 100 mg, 1, capsule, By Mouth, 3 times a day, # 90 capsule, Refills 5, Tot. Refills 5, Maintenance, 03/11/23 10:50:00 EDT, Route to Pharmacy Electronically, [facility] #[id number], Partial fill upon patient request if the prescription is for a jan... Start Date: 03/11/23 Status: Ordered mirtazapine 7.5 mg oral tablet [...] mycophenolate mofetil 500 mg oral tablet 2 tablet = 1,000 mg, By Mouth, 2 times a day, # 60 tablet, 0 Refills, Maintenance, 06/04/23 15:33:00 EST, Tablet, [facility] #[id number], Partial fill upon patient request if the prescription isfor a schedule II opioid drug., riddhi Raymond, 05/05/23 1... Start Date: 06/04/23 Status: Ordered nicotine 14 mg/24 hr transdermal [...] tablet, 0 Refills, Maintenance, 01/13/23 10:51:00 EDT, [facility]/pharmacy #[id number], Partial fill upon patient request if the prescription is for a schedule II opioid drug., riddhi Raymond, 12/30/22... Start Date: 01/13/23 Status: Ordered oxyCODONE 10 mg oral tablet 1 tablet = 10 mg, By Mouth, Every 4 hours, PRN as needed for pain, # 50 tablet, 0 Refills, Maintenance, 05/26/23 10:48:00 EST, Tablet, [facility] #[id number], Partial fill upon patient request if the prescription is for a schedule II opioid drug.... Start Date: 05/26/23 Status: Ordered polyethylene glycol 3350 oral powder for reconstitution = 17 Gm, By Mouth, Daily, PRN Constipation, dissolve in water before taking, # 12 each, 0 Refills, Maintenance, 01/27/23 16:21:00 EDT, REC Powder, [facility] #[id number], Partial fill upon patient request if the prescription is for a schedule II... Start Date: 01/27/23 Status: Ordered predniSONE 20 mg oral tablet See Instructions, 3 tablet By Mouth Daily with food or milk. Taper as directed by provider, # 60 tablet, 0 Refills, Maintenance, 05/13/23 11:43:00 EDT, Tablet, [facility] #[id number], Partial fill upon patient request if the prescription is for a... Start Date: 05/13/23 Status: Ordered Protonix 20 mg oral delayed release tablet 1 tablet = 20 mg, By Mouth, Daily, # 90 tablet, 0 Refills, Maintenance, 05/05/23 14:09:00 EDT, CR Tablet, 178, cm, 05/05/23 13:50:00 EDT, Height, 43, kg, 04/29/23 9:20:00 EDT, Dry Weight Start Date: 05/05/23 Status: Ordered sucralfate 1 gm oral tablet TAKE 1 TABLET BY MOUTH FOUR TIMES A DAY BEFORE MEALS & BEDTIME FOR 21 DAYS Start Date: 12/17/22 Status: Ordered Problem List Condition Confirmation Course Effective Dates Status Health [facility] Informant Tobacco abuse Confirmed Active Underweight Confirmed Active Social History Social History Type Response Smoking Status Former smoker, quit more than 30 days ago entered on: 03/11/23 Sex Patient Care team information Care Team Personnel Name: Rohan Kong MD Position: [facility] Outreach Member Role: PCP Address: Address: [address] [place] [phone]- Name: Светлана Ellis RN Position: [facility] Onco RN Member Role: Primary Care Nurse Care Team Related Persons Name: WILLIAMS CLAUDIO Address: home [address] [place] [address] Name: EITAN ORNELAS
--- OUTSIDE RECORDS SUMMARY | 2024-04-05 12:42 | XMS_ITS | Continuity of Care Document ---
Author Organization [facility] Address [address] [place] [address]- Care Team Providers Care Second Operator Name Role Phone Dilan CASTRO, Rohan Moreau Primary Care Physician [phone] Encounter [facility] Date(s): 06/17/23 - 07/17/23 [facility] [address] [place] [phone]- Attending Physician: Ramin Walter Admitting Physician: Ramin Walter Referring Physician: Ramin Walter Allergies, Adverse Reactions, Alerts No Known Medication [...] Acute 07/27/23 9:15:00 EST, 05/28/23 9:15:00 EST, [facility] #[id number], Partial fill upon patient request if the prescription is for a schedule II opio... Start Date: 05/28/23 Stop Date: 07/27/23 Status: Ordered gabapentin 100 mg oral capsule 100 mg, 1, capsule, By Mouth, 3 times a day, # 90 capsule, Refills 5, Tot. Refills 5, Maintenance, 06/10/23 18:14:00 EST, Route to Pharmacy Electronically, [facility] #[id number], Partial fill upon patient request if the [...] tablet, 4 Refills, Maintenance, 06/26/23 10:12:00 EST, [facility] #[id number], 178, cm, 06/17/23 10:46:00 EST, Height, 47.2, [...] tablet, 0 Refills, Maintenance, 01/13/23 10:51:00 EDT, [facility]/pharmacy #[id number], Partial fill upon patient request if the prescription is for a schedule II opioid drug., 178, cm, 12/30/22... Start Date: 01/13/23 Status: Ordered oxyCODONE 10 mg oral tablet 1 tablet = 10 mg, By Mouth, Every 4 hours, PRN as needed for pain, # 50 tablet, 0 Refills, Maintenance, 07/16/23 11:26:00 EST, Tablet, [facility] #[id number], Partial fill upon patient request if the prescription is for a schedule II opioid drug.... Start Date: 07/16/23 Status: Ordered polyethylene glycol 3350 oral powder for reconstitution = 17 Gm, By Mouth, Daily, PRN Constipation, dissolve in water before taking, # 12 each, 0 Refills, Maintenance, 01/27/23 16:21:00 EDT, REC Powder, [facility] #[id number], Partial fill upon patient request if the prescription is for a schedule II... Start Date: 01/27/23 Status: Ordered predniSONE 20 mg oral tablet 2 tablet = 40 mg, By Mouth, Daily, Continue 2 tablets daily until told to decrease. Must take with food., # 60 tablet, 0 Refills, Maintenance, 06/11/23 13:25:00 EST, Tablet, [facility] #[id number], Partial fill upon patient request if the prescri... Start Date: 06/11/23 Status: Ordered Protonix 20 mg oral delayed [...] Team Personnel Name: Rohan Kong MD Position: [facility] Outreach Member Role: PCP Address: Address: [address] [place] [address]- [place] Name: Светлана Ellis RN Position: [facility] Onco RN Member Role: Primary Care Nurse Care Team Related Persons Name: WILLIAMS CLAUDIO Address: home [address] [place] [address] Name: EITAN ORNELAS
--- OUTSIDE RECORDS SUMMARY | 2024-04-05 12:42 | XMS_ITS | Continuity of Care Document ---
Author Organization [facility] ancer Care Address [address] [place] [address]- Care Team Providers Care Seismology Teacher Name Role Phone Dilan CASTRO, Rohan Moreau Primary Care Physician Encounter [facility] [place] Date(s): 01/27/23 - 02/26/[address] [id number] Allergies, Adverse Reactions, Alerts No Known [...] opioid drug. Start Date: 11/15/22 Status: Ordered mirtazapine 7.5 mg oral tablet [...] opioid drug. Start Date: 11/15/22 Status: Ordered nicotine 14 mg/24 hr transdermal [...] tablet, 0 Refills, Maintenance, 01/13/23 10:51:00 EDT, [facility]/pharmacy #[id number], Partial fill upon patient request if the prescription is for a schedule II opioid drug., 178, cm, 12/30/22... Start Date: 01/13/23 Status: Ordered oxyCODONE 5 mg oral tablet 10 mg, 2, tablet, By Mouth, Every 4 hours, PRN, take 1 tab for less pain, # 80 tablet, Refills 0, Tot. Refills 0, Maintenance, Pain , Severe, 02/19/23 8:56:00 EDT, Route to Pharmacy Electronically, [facility] #[id number], Partial fill upon patien... Start Date: 02/19/23 Status: Ordered polyethylene glycol 3350 oral powder for reconstitution = 17 Gm, By Mouth, Daily, PRN Constipation, dissolve in water before taking, # 12 each, 0 Refills, Maintenance, 01/27/23 16:21:00 EDT, REC Powder, [facility] #[id number], Partial fill upon patient request if the prescription is for a schedule II... Start Date: 01/27/23 Status: Ordered sucralfate 1 gm oral tablet TAKE 1 TABLET BY MOUTH FOUR TIMES A DAY BEFORE MEALS & BEDTIME FOR 21 DAYS Start Date: 12/17/22 Status: Ordered Problem List Condition Confirmation Course Effective Dates Status Health St [facility] Informant Tobacco abuse Confirmed Active Underweight Confirmed Active Social History Social History Type Response Tobacco Other: no smoking fo r three weeks. Sex Patient Care team information Care Team Personnel Name: Rohan Kong MD Position: S Outreach Member Role: PCP Address: Address: [address] [place] [address] Care Team Related Persons Name: WILLIAMS CLAUDIO Address: home [address] [place] [address] Name: EITAN ORNELAS
--- OUTSIDE RECORDS SUMMARY | 2024-04-05 12:42 | XMS_ITS | Continuity of Care Document ---
Author Organization [facility] ancer Care Address [address] [place] [address]- Care Team Providers Care Conference Planner Name Role Phone Dilan CASTRO, Rohan Moreau Primary Care Physician [phone] Encounter [facility] Date(s): 05/19/23 - 06/18/23 [facility] [address] [place] [id number] Allergies, Adverse Reactions, Alerts No Known [...] Acute 07/27/23 9:15:00 EST, 05/28/23 9:15:00 EST, [facility] #[id number], Partial fill upon patient request if the prescription is for a schedule II opio... Start Date: 05/28/23 Stop Date: 07/27/23 Status: Ordered gabapentin 100 mg oral capsule 100 mg, 1, capsule, By Mouth, 3 times a day, # 90 capsule, Refills 5, Tot. Refills 5, Maintenance, 06/10/23 18:14:00 EST, Route to Pharmacy Electronically, [facility] #[id number], Partial fill upon patient request if the [...] day, # 60 tablet, 4 Refills, Maintenance, 06/18/23 16:14:00 EST, [facility] #[id number], 178, cm, 06/17/23 10:46:00 EST, Height, 47.2, kg, 06/10/23 9:31:00 EST, DryWeight Start Date: 06/18/23 Status: Ordered nicotine 14 mg/24 hr transdermal [...] tablet, 0 Refills, Maintenance, 01/13/23 10:51:00 EDT, [facility]/pharmacy #[id number], Partial fill upon patient request if the prescription is for a schedule II opioid drug., 178, cm, 12/30/22... Start Date: 01/13/23 Status: Ordered oxyCODONE 10 mg oral tablet 1 tablet = 10 mg, By Mouth, Every 4 hours, PRN as needed for pain, # 50 tablet, 0 Refills, Maintenance, 05/26/23 10:48:00 EST, Tablet, [facility] #[id number], Partial fill upon patient request if the prescription is for a schedule II opioid drug.... Start Date: 05/26/23 Status: Ordered polyethylene glycol 3350 oral powder for reconstitution = 17 Gm, By Mouth, Daily, PRN Constipation, dissolve in water before taking, # 12 each, 0 Refills, Maintenance, 01/27/23 16:21:00 EDT, REC Powder, [facility] #[id number], Partial fill upon patient request if the prescription is for a schedule II... Start Date: 01/27/23 Status: Ordered predniSONE 20 mg oral tablet 2 tablet = 40 mg, By Mouth, Daily, Continue 2 tablets daily until told to decrease. Must take with food., # 60 tablet, 0 Refills, Maintenance, 06/11/23 13:25:00 EST, Tablet, [facility] #[id number], Partial fill upon patient request if the [...] Team Personnel Name: Rohan Kong MD Position: [facility] Outreach Member Role: PCP Address: Address: [address] [place] [address]- Name: Светлана Ellis RN Position: [facility] Onco RN Member Role: Primary Care Nurse Care Team Related Persons Name: WILLIAMS CLAUDIO Address: home [address] [place] [id number] Name: EITAN ORNELAS
--- OUTSIDE RECORDS SUMMARY | 2024-04-05 12:42 | XMS_ITS | Continuity of Care Document ---
Author Organization [facility] Address [address] [place] [id number]- Care Team Providers Care Pull Over Name Role Phone Dilan CASTRO, Rohan Moreau Primary Care Physician Encounter [facility] Date(s): 06/12/23 - 07/16/23 [facility] [address] [place] [address]- Attending Physician: Adrian Haines MD Admitting Physician: Adrian Haines MD Referring Physician: Zion [employer], Ekaterina Pozo Allergies, Adverse Reactions, Alerts No Known Medication [...] Acute 07/27/23 9:15:00 EST, 05/28/23 9:15:00 EST, [facility] #[id number], Partial fill upon patient request if the prescription is for a schedule II opio... Start Date: 05/28/23 Stop Date: 07/27/23 Status: Ordered gabapentin 100 mg oral capsule 100 mg, 1, capsule, By Mouth, 3 times a day, # 90 capsule, Refills 5, Tot. Refills 5, Maintenance, 06/10/23 18:14:00 EST, Route to Pharmacy Electronically, [facility] #[id number], Partial fill upon patient request if the [...] tablet, 4 Refills, Maintenance, 06/26/23 10:12:00 EST, [facility] #[id number], 178, cm, 06/17/23 10:46:00 EST, Height, 47.2, [...] tablet, 0 Refills, Maintenance, 01/13/23 10:51:00 EDT, [facility]/pharmacy #[id number], Partial fill upon patient request if the prescription is for a schedule II opioid drug., 178, cm, 12/30/22... Start Date: 01/13/23 Status: Ordered oxyCODONE 10 mg oral tablet 1 tablet = 10 mg, By Mouth, Every 4 hours, PRN as needed for pain, # 50 tablet, 0 Refills, Maintenance, 07/16/23 11:26:00 EST, Tablet, [facility] #[id number], Partial fill upon patient request if the prescription is for a schedule II opioid drug.... Start Date: 07/16/23 Status: Ordered polyethylene glycol 3350 oral powder for reconstitution = 17 Gm, By Mouth, Daily, PRN Constipation, dissolve in water before taking, # 12 each, 0 Refills, Maintenance, 01/27/23 16:21:00 EDT, REC Powder, [facility] #[id number], Partial fill upon patient request if the prescription is for a schedule II... Start Date: 01/27/23 Status: Ordered predniSONE 20 mg oral tablet 2 tablet = 40 mg, By Mouth, Daily, Continue 2 tablets daily until told to decrease. Must take with food., # 60 tablet, 0 Refills, Maintenance, 06/11/23 13:25:00 EST, Tablet, [facility] #[id number], Partial fill upon patient request if the [...] Team Personnel Name: Rohan Kong MD Position: [facility] Outreach Member Role: PCP Address: Address: [address] [place] [address]- Name: Светлана Ellis RN Position: [facility] Onco RN Member Role: Primary Care Nurse Care Team Related Persons Name: WILLIAMS CLAUDIO Address: home [address] [place] [address] Name: EITAN ORNELAS
--- OUTSIDE RECORDS SUMMARY | 2024-04-05 12:42 | XMS_ITS | Continuity of Care Document ---
Author Organization [facility] C ancer Care Address [address] [place] [address]- Care Team Providers Care Criminal Investigator Name Role Phone Dilan CASTRO, Rohan Moreau Primary Care Physician [place] [facility] [place](s): 09/23/23 - 10/23/23 [facility] Care [address] [place] [id number] Allergies, Adverse Reactions, Alerts No Known Medication [...] opioid drug. Start Date: 11/15/22 Status: Ordered Creon 12,000 units oral delayed release capsule 1 capsule, By Mouth, 3 times a day, # 90 capsule, 5 Refills, Maintenance, 10/21/23 17:53:00 EDT, [facility], [facility] #[id number], Partial fill upon patient request if the prescription is fora schedule II opioid drug., 178, cm, 10/21/23 8:56:00 E... Start Date: 10/21/23 Status: Ordered gabapentin 100 mg oral capsule 100 mg, 1, capsule, By Mouth, 3 times a day, # 90 capsule, Refills 5, Tot. Refills 5, Maintenance, 06/10/23 18:14:00 EST, Route to Pharmacy Electronically, [facility] #[id number], Partial fill upon patient request if the [...] tablet, 4 Refills, Maintenance, 06/26/23 10:12:00 EST, [facility] #[id number], 178, cm, 06/17/23 10:46:00 EST, Height, 47.2, [...] 0 Refills, Maintenance, 01/13/23 10:51:00 EDT, [facility]/pharmacy #[id number], Partial fill upon patient request if the prescription is for a schedule II opioid drug., 178, cm, 12/30/22... Start Date: 01/13/23 Status: Ordered oxyCODONE 10 mg oral tablet 1 tablet = 10 mg, By Mouth, 3 times a day, PRN as needed for pain, # 42 tablet, 0 Refills, Maintenance, 10/21/23 17:52:00 EDT, Tablet, [facility] #[id number], Partial fill upon patient request if the prescription is for a schedule II opioid drug., 1... Start Date: 10/21/23 Stop Date: 11/04/23 Status: Ordered pantoprazole 20 mg oral delayed [...] Refills, Maintenance, 01/27/23 16:21:00 EDT, REC Powder, [id number], Partial fill upon patient request if the [...] more than 30 days ago entered on: 10/21/23 Sex Patient Care team information Care Team Personnel Name: Rohan Kong MD Position: [facility] Outreach Member Role: PCP Address: Address: [address] [place] [address]- Name: Светлана Ellis RN Position: [facility] Onco RN Member Role: Primary Care Nurse Care Team Related Persons Name: WILLIAMS CLAUDIO Address: home [address] [place] [id number] Name: EITAN ORNELAS
--- OUTSIDE RECORDS SUMMARY | 2024-04-05 12:42 | XMS_ITS | Continuity of Care Document ---
Author Organization [facility] ancer Care Address [address] [place] [address]- Care Team Providers Care Special Education Paraprofessional Name Role Phone Dilan CASTRO, Rohan Moreau Primary Care Physician [place] [facility] Date(s): 06/11/23 - 07/11/23 [facility] [address] [place] [id number] Allergies, Adverse Reactions, Alerts [...] Acute 07/27/23 9:15:00 EST, 05/28/23 9:15:00 EST, [facility] #[id number], Partial fill upon patient request if the prescription is for a schedule II opio... Start Date: 05/28/23 Stop Date: 07/27/23 Status: Ordered gabapentin 100 mg oral capsule 100 mg, 1, capsule, By Mouth, 3 times a day, # 90 capsule, Refills 5, Tot. Refills 5, Maintenance, 06/10/23 18:14:00 EST, Route to Pharmacy Electronically, [facility] #[id number], Partial fill upon patient request if the [...] tablet, 4 Refills, Maintenance, 06/26/23 10:12:00 EST, [facility] #[id number], 178, cm, 06/17/23 10:46:00 EST, Height, 47.2, [...] tablet, 0 Refills, Maintenance, 01/13/23 10:51:00 EDT, [facility]/pharmacy #[id number], Partial fill upon patient request if the prescription is for a schedule II opioid drug., 178, cm, 12/30/22... Start Date: 01/13/23 Status: Ordered oxyCODONE 10 mg oral tablet 1 tablet = 10 mg, By Mouth, Every 4 hours, PRN as needed for pain, # 50 tablet, 0 Refills, Maintenance, 06/23/23 13:13:00 EST, Tablet, [facility] #[id number], Partial fill upon patient request if the prescription is for a schedule II opioid drug.... Start Date: 06/23/23 Status: Ordered polyethylene glycol 3350 oral powder for reconstitution = 17 Gm, By Mouth, Daily, PRN Constipation, dissolve in water before taking, # 12 each, 0 Refills, Maintenance, 01/27/23 16:21:00 EDT, REC Powder, [facility] #[id number], Partial fill upon patient request if the prescription is for a schedule II... Start Date: 01/27/23 Status: Ordered predniSONE 20 mg oral tablet 2 tablet = 40 mg, By Mouth, Daily, Continue 2 tablets daily until told to decrease. Must take with food., # 60 tablet, 0 Refills, Maintenance, 06/11/23 13:25:00 EST, Tablet, [facility] #[id number], Partial fill upon patient request if the [...] Team Personnel Name: Rohan Kong MD Position: [facility] Outreach Member Role: PCP Address: Address: [address] [place] [address]- Name: Светлана Ellis RN Position: [facility] Onco RN Member Role: Primary Care Nurse Care Team Related Persons Name: WILLIAMS CLAUDIO Address: home [address] [place] [id number] Name: EITAN ORNELAS
--- OUTSIDE RECORDS SUMMARY | 2024-04-05 12:42 | XMS_ITS | Continuity of Care Document ---
Author Organization [facility] ancer Care Address [address] [place] [address]- Care Team Providers Care Computer Systems Analyst Name Role Phone Dilan CASTRO, Rohan Moreau Primary Care Physician Encounter [facility] Date(s): 05/15/23 - 06/14/23 [facility] [address] [place] [id number] Allergies, Adverse Reactions, Alerts No [...] Acute 07/27/23 9:15:00 EST, 05/28/23 9:15:00 EST, [facility] #[id number], Partial fill upon patient request if the prescription is for a schedule II opio... Start Date: 05/28/23 Stop Date: 07/27/23 Status: Ordered gabapentin 100 mg oral capsule 100 mg, 1, capsule, By Mouth, 3 times a day, # 90 capsule, Refills 5, Tot. Refills 5, Maintenance, 06/10/23 18:14:00 EST, Route to Pharmacy Electronically, [facility] #[id number], Partial fill upon patient request if the [...] 0 Refills, Maintenance, 06/04/23 15:33:00 EST, Tablet, [facility] #[id number], Partial fill upon patient request if the [...] tablet, 0 Refills, Maintenance, 01/13/23 10:51:00 EDT, [facility]/pharmacy #[id number], Partial fill upon patient request if the prescription is for a schedule II opioid drug., 178 cm, 12/30/22... Start Date: 01/13/23 Status: Ordered oxyCODONE 10 mg oral tablet 1 tablet = 10 mg, By Mouth, Every 4 hours, PRN as needed for pain, # 50 tablet, 0 Refills, Maintenance, 05/26/23 10:48:00 EST, Tablet, [facility] #[id number], Partial fill upon patient request if the prescription is for a schedule II opioid drug.... Start Date: 05/26/23 Status: Ordered polyethylene glycol 3350 oral powder for reconstitution = 17 Gm, By Mouth, Daily, PRN Constipation, dissolve in water before taking, # 12 each, 0 Refills, Maintenance, 01/27/23 16:21:00 EDT, REC Powder, [facility] #[id number], Partial fill upon patient request if the prescription is for a schedule II... Start Date: 01/27/23 Status: Ordered predniSONE 20 mg oral tablet 2 tablet = 40 mg, By Mouth, Daily, Continue 2 tablets daily until told to decrease. Must take with food., # 60 tablet, 0 Refills, Maintenance, 06/11/23 13:25:00 EST, Tablet, [facility] #[id number], Partial fill upon patient request if the [...] Team Personnel Name: Rohan Kong MD Position: [facility] Outreach Member Role: PCP Address: Address: [address] [place] [address]- Name: Светлана Ellis RN Position: [facility] Onco RN Member Role: Primary Care Nurse Care Team Related Persons Name: WILLIAMS CLAUDIO Address: home [address] [place] [address] Name: EITAN ORNELAS
--- OUTSIDE RECORDS SUMMARY | 2024-04-05 12:42 | XMS_ITS | Continuity of Care Document ---
Author Organization [facility] ancer Care Address [address] [place] [address]- Care Team Providers Care Freight Elevator Operator Name Role Phone Dilan CASTRO, Rohan Moreau Primary Care Physician Encounter [facility] R [id number] Date(s): 06/11/23 - 07/11/23 [facility] Care [address] [place] [id number] Allergies, Adverse Reactions, Alerts No Known [...] Acute 07/27/23 9:15:00 EST, 05/28/23 9:15:00 EST, [facility] #[id number], Partial fill upon patient request if the prescription is for a schedule II opio... Start Date: 05/28/23 Stop Date: 07/27/23 Status: Ordered gabapentin 100 mg oral capsule 100 mg, 1, capsule, By Mouth, 3 times a day, # 90 capsule, Refills 5, Tot. Refills 5, Maintenance, 06/10/23 18:14:00 EST, Route to Pharmacy Electronically, [facility] #[id number], Partial fill upon patient request if the [...] tablet, 4 Refills, Maintenance, 06/26/23 10:12:00 EST, [facility] #[id number], 178, cm, 06/17/23 10:46:00 EST, Height, 47.2, [...] tablet, 0 Refills, Maintenance, 01/13/23 10:51:00 EDT, [facility]/pharmacy #[id number], Partial fill upon patient request if the prescription is for a schedule II opioid drug., 178, cm, 12/30/22... Start Date: 01/13/23 Status: Ordered oxyCODONE 10 mg oral tablet 1 tablet = 10 mg, By Mouth, Every 4 hours, PRN as needed for pain, # 50 tablet, 0 Refills, Maintenance, 06/23/23 13:13:00 EST, Tablet, [facility] #[id number], Partial fill upon patient request if the prescription is for a schedule II opioid drug.... Start Date: 06/23/23 Status: Ordered polyethylene glycol 3350 oral powder for reconstitution = 17 Gm, By Mouth, Daily, PRN Constipation, dissolve in water before taking, # 12 each, 0 Refills, Maintenance, 01/27/23 16:21:00 EDT, REC Powder, [facility] #[id number], Partial fill upon patient request if the prescription is for a schedule II... Start Date: 01/27/23 Status: Ordered predniSONE 20 mg oral tablet 2 tablet = 40 mg, By Mouth, Daily, Continue 2 tablets daily until told to decrease. Must take with food., # 60 tablet, 0 Refills, Maintenance, 06/11/23 13:25:00 EST, Tablet, [facility] #[id number], Partial fill upon patient request if the [...] Team Personnel Name: Rohan Kong MD Position: [facility] Outreach Member Role: PCP Address: Address: [address] [place] [address]- Name: Светлана Ellis RN Position: [facility] Onco RN Member Role: Primary Care Nurse Care Team Related Persons Name: WILLIAMS CLAUDIO Address: home [address] [place] [address] Name: EITAN ORNELAS
--- OUTSIDE RECORDS SUMMARY | 2024-04-05 12:42 | XMS_ITS | Continuity of Care Document ---
Author Organization [facility] ancer Care Address [address] [place] [address]- Care Team Providers Care Composition Siding Worker Name Role Phone Dilan CASTRO, Rohan Moreau Primary Care Physician Encounter [facility] [place] [id number] Date(s): 06/11/23 - 07/11/23 [facility] [address] [place] [address] Allergies, Adverse Reactions, Alerts No [...] Acute 07/27/23 9:15:00 EST, 05/28/23 9:15:00 EST, [facility] #[id number], Partial fill upon patient request if the prescription is for a schedule II opio... Start Date: 05/28/23 Stop Date: 07/27/23 Status: Ordered gabapentin 100 mg oral capsule 100 mg, 1, capsule, By Mouth, 3 times a day, # 90 capsule, Refills 5, Tot. Refills 5, Maintenance, 06/10/23 18:14:00 EST, Route to Pharmacy Electronically, [facility] #[id number], Partial fill upon patient request if the [...] tablet, 4 Refills, Maintenance, 06/26/23 10:12:00 EST, [facility] #[id number], 178, cm, 06/17/23 10:46:00 EST, Height, 47.2, [...] tablet, 0 Refills, Maintenance, 01/13/23 10:51:00 EDT, [facility]acy #[id number], Partial fill upon patient request if the prescription is for a schedule II opioid drug., 178, cm, 12/30/22... Start Date: 01/13/23 Status: Ordered oxyCODONE 10 mg oral tablet 1 tablet = 10 mg, By Mouth, Every 4 hours, PRN as needed for pain, # 50 tablet, 0 Refills, Maintenance, 06/23/23 13:13:00 EST, Tablet, [facility] #[id number], Partial fill upon patient request if the prescription is for a schedule II opioid drug.... Start Date: 06/23/23 Status: Ordered polyethylene glycol 3350 oral powder for reconstitution = 17 Gm, By Mouth, Daily, PRN Constipation, dissolve in water before taking, # 12 each, 0 Refills, Maintenance, 01/27/23 16:21:00 EDT, REC Powder, [facility] #[id number], Partial fill upon patient request if the prescription is for a schedule II... Start Date: 01/27/23 Status: Ordered predniSONE 20 mg oral tablet 2 tablet = 40 mg, By Mouth, Daily, Continue 2 tablets daily until told to decrease. Must take with food., # 60 tablet, 0 Refills, Maintenance, 06/11/23 13:25:00 EST, Tablet, [facility] #[id number], Partial fill upon patient request if the [...] Team Personnel Name: Rohan Kong MD Position: [facility] Outreach Member Role: PCP Address: Address: [address] [place] [address]- Name: Светлана Ellis RN Position: [facility] Onco RN Member Role: Primary Care Nurse Care Team Related Persons Name: WILLIAMS CLAUDIO Address: home [address] [place] [address] Name: EITAN ORNELAS
--- OUTSIDE RECORDS SUMMARY | 2024-04-05 12:42 | XMS_ITS | Continuity of Care Document ---
Author Organization [facility] ancer Care Address [address] [place] [address]- Care Team Providers Care Cardiovascular Operating Room Nurse Name Role Phone Dilan CASTRO, Rohan Moreau Primary Care Physician Encounter [facility] Date(s): 04/29/23 - 05/29/23 [facility] Care [address] [place] [id number] Allergies, Adverse Reactions, Alerts No [...] Acute 07/27/23 9:15:00 EST, 05/28/23 9:15:00 EST, [facility] #[id number], Partial fill upon patient request if the prescription is for a schedule II opio... Start Date: 05/28/23 Stop Date: 07/27/23 Status: Ordered gabapentin 100 mg oral capsule 100 mg, 1, capsule, By Mouth, 3 times a day, # 90 capsule, Refills 5, Tot. Refills 5, Maintenance, 03/11/23 10:50:00 EDT, Route to Pharmacy Electronically, [facility] #[id number], Partial fill upon patient request if the [...] tablet, 0 Refills, Maintenance, 01/13/23 10:51:00 EDT, [facility]/pharmacy #[id number], Partial fill upon patient request if the prescription is for a schedule II opioid drug., 178, cm, 12/30/22... Start Date: 01/13/23 Status: Ordered oxyCODONE 10 mg oral tablet 1 tablet = 10 mg, By Mouth, Every 4 hours, PRN as needed for pain, # 50 tablet, 0 Refills, Maintenance, 05/26/23 10:48:00 EST, Tablet, [facility] #[id number], Partial fill upon patient request if the prescription is for a schedule II opioid drug.... Start Date: 05/26/23 Status: Ordered polyethylene glycol 3350 oral powder for reconstitution = 17 Gm, By Mouth, Daily, PRN Constipation, dissolve in water before taking, # 12 each, 0 Refills, Maintenance, 01/27/23 16:21:00 EDT, REC Powder, [facility] #[id number], Partial fill upon patient request if the prescription is for a schedule II... Start Date: 01/27/23 Status: Ordered predniSONE 20 mg oral tablet See Instructions, 3 tablet By Mouth Daily with food or milk. Taper as directed by provider, # 60 tablet, 0 Refills, Maintenance, 05/13/23 11:43:00 EDT, Tablet, [facility] #[id number], Partial fill upon patient request if the [...] Care team information Care Team Personnel Name: Dilan CASTRO , Rohan Moreau Position: [facility] Outreach Member Role: PCP Address: Address: [address] [place] [address]- Name: Светлана Ellis RN Position: [facility] Onco RN Member Role: Primary Care Nurse Care Team Related Persons Name: WILLIAMS CLAUDIO Address: home [address] [place] [id number] Name: EITAN ORNELAS
--- OUTSIDE RECORDS SUMMARY | 2024-04-05 12:42 | XMS_ITS | Continuity of Care Document ---
Author Organization [facility] Address [address] [place] [address]- Care Team Providers Care Shredder Tender Name Role Phone Dilan CASTRO, Rohan Moreau Primary Care Physician [phone] Encounter [facility] Date(s): 01/19/24 - 02/18/24 [facility] Care [address] [place] [address] Allergies, Adverse Reactions, Alerts No Known Medication Allergies Immunizations Given and Recorded Vaccine Date Status Refusal Reason SARS-CoV-2 (COVID-19) mRNA-1273 vaccine 07/12/21 R ecorded SARS-CoV-2 (COVID-19) mRNA-1273 vaccine 12/05/20 R ecorded SARS-CoV-2 (COVID-19) mRNA-1273 vaccine 11/01/20 R ecorded Medications Creon 12,000 units oral delayed release capsule 1 capsule, By Mouth, 3 times a day, # 90 capsule, 5 Refills, Maintenance, 11/24/23 13:37:00 EDT, ECCapsule, [facility] #[id number], Partial fill upon patient request if the prescription is fora schedule II opioid drug., 178, cm, 10/21/23 8:56:00 E... Start Date: 11/24/23 Status: Ordered gabapentin 100 mg oral capsule 100 mg, 1, capsule, By Mouth, 3 times a day, # 90 capsule, Refills 5, Tot. Refills 5, Maintenance, 12/09/23 16:37:00 EDT, Route to Pharmacy Electronically, [facility] #[id number], Partial fill upon patient request if the prescription is for a schedu... Start Date: 12/09/23 Status: Ordered Multivit Therapeutic/Minerals Tablet 1 tablet, By Mouth, Daily, 0 Refills, Maintenance, 11/15/22 16:30:00 EDT, Tablet, Partial fill uponpatient request if the prescription is for a schedule II opioid drug. Start Date: 11/15/22 Status: Ordered nicotine 14 mg/24 hr transdermal film, extended release APPLY 1 PATCH TOPICALLY DAILY FOR 14 DAYS. NOT COVERED Start Date: 12/17/22 Status: Ordered oxyCODONE 10 mg oral tablet 1 tablet = 10 mg, By Mouth, 3 times a day, PRN as needed for pain, # 60 tablet, 0 Refills, Maintenance, 01/08/24 8:54:00 EDT, Tablet, [facility] #[facility], Partial fill upon patient request if the prescription is for a schedule II opioid drug., 17... Start Date: 01/08/24 Status: Ordered oxyCODONE 10 mg oral tablet 1 tablet = 10 mg, By Mouth, 3 times a day, PRN as needed for pain, # 60 tablet, 0 Refills, Maintenance, 02/09/24 9:23:00 EDT, Tablet, [facility] #[facility], Partial fill upon patient request if the prescription is for a schedule II opioid drug., 17... Start Date: 02/09/24 Status: Ordered Problem List Condition Confirmation Course Effective Dates Status Health [facility] Informant Tobacco abuse Confirmed Active Underweight Confirmed Active Social History Social History Type Response Smoking Status Former smoker, quit more than 30 days ago entered on: 10/21/23 Sex Patient Care team information Care Team Personnel Name: Rohan Kong MD Position: [facility] Outreach Member Role: PCP Address: Address: [address] [place] [address]- Name: Светлана Ellis RN Position: [facility] Onco RN Member Role: Primary Care Nurse Care Team Related Persons Name: WILLIAMS CLAUDIO Address: home [address] [place] [phone] Name: EITAN ORNELAS
--- OUTSIDE RECORDS SUMMARY | 2024-04-05 12:42 | XMS_ITS | Continuity of Care Document ---
Author Organization [facility] ancer Care Address [address] [place] [address]- Care Team Providers Care Senior Quality Assurance Specialist Name Role Phone Dilan CASTRO, Rohan Moreau Primary Care Physician Encounter [facility] R [id number] Date(s): 03/11/23 - 04/10/23 [facility] Care [address] [place] [id number] Allergies, Adverse Reactions, Alerts No Known [...] 03/11/23 10:50:00 EDT, Route to Pharmacy Electronically, [facility] #[id number], Partial fill upon patient request if the [...] tablet, 0 Refills, Maintenance, 01/13/23 10:51:00 EDT, [facility]/pharmacy #[id number], Partial fill upon patient request if the prescription is for a schedule II opioid drug., 178, cm, 12/30/22... Start Date: 01/13/23 Status: Ordered oxyCODONE 5 mg oral tablet 10 mg, 2, tablet, By Mouth, Every 4 hours, PRN, take 1 tab for less pain, # 80 tablet, Refills 0, Tot. Refills 0, Maintenance, Pain , Severe, 04/08/23 11:29:00 EDT, Route to Pharmacy Electronically, [facility] #[id number], Partial fill upon patie... Start Date: 04/08/23 Status: Ordered polyethylene glycol 3350 oral powder for reconstitution = 17 Gm, By Mouth, Daily, PRN Constipation, dissolve in water before taking, # 12 each, 0 Refills, Maintenance, 01/27/23 16:21:00 EDT, REC Powder, [facility] #[id number], Partial fill upon patient request if the [...] Name: Dilan CASTRO , Rohan Moreau Position: S Outreach Member Role: PCP Address: Address: [address] [place] [address]- Care Team Related Persons Name: WILLIAMS CLAUDIO Address: [address] [address] Name: EITAN ORNELAS
--- OUTSIDE RECORDS SUMMARY | 2024-04-05 12:42 | XMS_ITS | Continuity of Care Document ---
Author Organization [facility] C ancer Care Address [address] [place] [address]- Care Team Providers Care Internet Salesperson Name Role Phone Dilan CASTRO, Rohan Moreau Primary Care Physician En[facility] Date(s): 08/19/23 - 09/18/23 [facility] Care [address] [place] [id number] Allergies, Adverse Reactions, Alerts No Known [...] 06/10/23 18:14:00 EST, Route to Pharmacy Electronically, [facility] #[id number], Partial fill upon patient request if the [...] tablet, 4 Refills, Maintenance, 06/26/23 10:12:00 EST, [facility] #[id number], 178, cm, 06/17/23 10:46:00 EST, Height, 47.2, [...] tablet, 0 Refills, Maintenance, 01/13/23 10:51:00 EDT, [facility]/pharmacy #1234, Partial fill upon patient request if the prescription is for a schedule II opioid drug., 178, cm, 12/30/22... Start Date: 01/13/23 Status: Ordered oxyCODONE 10 mg oral tablet 1 tablet = 10 mg, By Mouth, Every 4 hours, PRN as needed for pain, # 50 tablet, 0 Refills, Maintenance, 09/01/23 9:57:00 EST, Tablet, [facility] #[facility], Partial fill upon patient request if the prescription is for a schedule II opioid drug., 17... Start Date: 09/01/23 Status: Ordered pantoprazole 20 mg oral delayed [...] Refills, Maintenance, 01/27/23 16:21:00 EDT, REC Powder, [facility] #[id number], Partial fill upon patient request if the prescription is for a schedule II... Start Date: 01/27/23 Status: Ordered predniSONE 20 mg oral tablet 2 tablet = 40 mg, By Mouth, Daily, Continue 2 tablets daily until told to decrease. Must take with food., # 60 tablet, 0 Refills, Maintenance, 06/11/23 13:25:00 EST, Tablet, [facility] #[id number], Partial fill upon patient request if the [...] Team Personnel Name: Rohan Kong MD Position: [facility] Outreach Member Role: PCP Address: Address: [address] [place] [address]- Name: Светлана Ellis RN Position: [facility] Onco RN Member Role: Primary Care Nurse Care Team Related Persons Name: WILLIAMS CLAUDIO Address: home [address] [place] [id number] Name: EITAN ORNELAS
--- OUTSIDE RECORDS SUMMARY | 2024-04-05 12:42 | XMS_ITS | Continuity of Care Document ---
Author Organization [facility] C ancer Care Address [address] [place] [address]- Care Team Providers Care Crossbar Switch Adjuster Name Role Phone Dilan CASTRO, Rohan Moreau Primary Care Physician Encounter [facility] Date(s): 10/30/23 - 11/29/23 [facility] Care [address] [place] [address] Allergies, Adverse Reactions, Alerts No Known Medication Allergies Immunizations Given and Recorded Vaccine Date Status Refusal Reason SARS-CoV-2 (COVID-19) mRNA-1273 vaccine 07/12/21 R ecorded SARS-CoV-2 (COVID-19) mRNA-1273 vaccine 12/05/20 R ecorded SARS-CoV-2 (COVID-19) mRNA-1273 vaccine 11/01/20 R ecorded Medications Creon 12,000 units oral delayed release capsule 1 capsule, By Mouth, 3 times a day, # 90 capsule, 5 Refills, Maintenance, 11/24/23 13:37:00 EDT, [facility], Partial fill upon patient request if the prescription is fora schedule II opioid drug., 178, cm, 10/21/23 8:56:00 E... Start Date: 11/24/23 Status: Ordered gabapentin 100 mg oral capsule 100 mg, 1, capsule, By Mouth, 3 times a day, # 90 capsule, Refills 5, Tot. Refills 5, Maintenance, 06/10/23 18:14:00 EST, Route to Pharmacy Electronically, [facility] #[id number], Partial fill upon patient request if the prescription is for a jan... Start Date: 06/10/23 Status: Ordered Multivit Therapeutic/Minerals Tablet 1 tablet, [...] pain, # 60 tablet, 0 Refills, Maintenance, 11/12/23 9:08:00 EDT, Tablet, [facility] #[facility], Partial fill upon patient request if the prescription is for a schedule II opioid drug., 17... Start Date: 11/12/23 Status: Ordered Problem List Condition Confirmation Course Effective Dates Status Health [facility] Informant Tobacco abuse Confirmed Active Underweight Confirmed Active Social History Social History Type Response Smoking Status Former smoker, quit more than 30 days ago entered on: 10/21/23 Sex Patient Care team information Care Team Personnel Name: Dilan CASTRO , Rohan Moreau Position: [facility] Outreach Member Role: PCP Address: Address: [address] [place] [address]- Name: Светлана Ellis RN Position: [facility] Onco RN Member Role: Primary Care Nurse Care Team Related Persons Name: WILLIAMS CLAUDIO Address: home [address] [place] [address] Name: EITAN ORNELAS
--- OUTSIDE RECORDS SUMMARY | 2024-04-05 12:42 | XMS_ITS | Continuity of Care Document ---
Author Organization [facility] ancer Care Address [address] [place] [address]- Care Team Providers Care Title Examiner Name Role Phone Dilan CASTRO, Rohan Moreau Primary Care Physician Encounter [facility] ACCT R [id number] Date(s): 06/10/23 - 07/10/23 [facility] Care [address] [place] [address] Allergies, Adverse Reactions, Alerts No [...] Acute 07/27/23 9:15:00 EST, 05/28/23 9:15:00 EST, [facility] #[id number], Partial fill upon patient request if the prescription is for a schedule II opio... Start Date: 05/28/23 Stop Date: 07/27/23 Status: Ordered gabapentin 100 mg oral capsule 100 mg, 1, capsule, By Mouth, 3 times a day, # 90 capsule, Refills 5, Tot. Refills 5, Maintenance, 06/10/23 18:14:00 EST, Route to Pharmacy Electronically, [facility] #[id number], Partial fill upon patient request if the [...] tablet, 4 Refills, Maintenance, 06/26/23 10:12:00 EST, [facility] #[id number], 178, cm, 06/17/23 10:46:00 EST, Height, 47.2, [...] tablet, 0 Refills, Maintenance, 01/13/23 10:51:00 EDT, [facility]/pharmacy #[id number], Partial fill upon patient request if the prescription is for a schedule II opioid drug., 178, cm, 12/30/22... Start Date: 01/13/23 Status: Ordered oxyCODONE 10 mg oral tablet 1 tablet = 10 mg, By Mouth, Every 4 hours, PRN as needed for pain, # 50 tablet, 0 Refills, Maintenance, 06/23/23 13:13:00 EST, Tablet, [facility] #[id number], Partial fill upon patient request if the prescription is for a schedule II opioid drug.... Start Date: 06/23/23 Status: Ordered polyethylene glycol 3350 oral powder for reconstitution = 17 Gm, By Mouth, Daily, PRN Constipation, dissolve in water before taking, # 12 each, 0 Refills, Maintenance, 01/27/23 16:21:00 EDT, REC Powder, [facility] #[id number], Partial fill upon patient request if the prescription is for a schedule II... Start Date: 01/27/23 Status: Ordered predniSONE 20 mg oral tablet 2 tablet = 40 mg, By Mouth, Daily, Continue 2 tablets daily until told to decrease. Must take with food., # 60 tablet, 0 Refills, Maintenance, 06/11/23 13:25:00 EST, Tablet, [facility] #[id number], Partial fill upon patient request if the [...] Team Personnel Name: Rohan Kong MD Position: [facility] Outreach Member Role: PCP Address: Address: [address] [place] [address]- Name: Светлана Ellis RN Position: [facility] Onco RN Member Role: Primary Care Nurse Care Team Related Persons Name: WILLIAMS CLAUDIO Address: home [address] [place] [phone] Name: EITAN ORNELAS
--- OUTSIDE RECORDS SUMMARY | 2024-04-05 12:42 | XMS_ITS | Continuity of Care Document ---
Author Organization [facility] Address [address] [place] [address] addi, [address] [place] [address]- Care Team Providers Care Top Loader Name Role Phone Dilan CASTRO, Rohan Mroeau Primary Care Physician [phone] Encounter [facility] Date(s): 12/17/22 - 01/16/23 [facility] [address] [place] [address], [address] [place], [place] [address] Attending Physician: Ramin Walter Admitting Physician: AdmRamin nobles Referring Physician: AdmtrRamin Allergies, Adverse Reactions, Alerts No Known Medication [...] 0 Refills, Maintenance, 01/13/23 10:51:00 EDT, [facility]/pharmacy #[id number], Partial fill upon patient request if the prescription is for a schedule II opioid drug., 178, cm, 12/30/22... Start Date: 01/13/23 Status: Ordered oxyCODONE 5 mg oral tablet 10 mg, 2, tablet, By Mouth, Every 4 hours, increase due to increasing cancer pain, # 40 tablet, Refills 0, Tot. Refills 0, Maintenance, 01/16/23 14:08:00 EDT, Route to Pharmacy Electronically, [facility] #[id number], Partial fill upon patient req... Start Date: 01/16/23 Status: Ordered sucralfate 1 gm oral tablet TAKE 1 TABLET BY MOUTH FOUR TIMES A DAY BEFORE MEALS & BEDTIME FOR 21 DAYS Start Date: 12/17/22 Status: Ordered Problem List Condition Confirmation Course Effective Dates Status Health St [facility] Informant Tobacco abuse Confirmed Active Underweight Confirmed Active Social History Social History Type Response Tobacco Use: 4 or less cigar ettes(less than 1/4 pack)/day in last 30 days. Sex Patient Care team information Care Team Personnel Name: Saba Tran RN Position: S RN Member Role: Primary Care Nurse Name: Rohan Kong MD Position: S Outreach Member Role: PCP Address: Address: [address] [place] [address]- Care Team Related Persons Name: GONZÁLEZ WILLIAMS Address: home [address] [place] [id number] Name: EITAN ORNELAS
--- OUTSIDE RECORDS SUMMARY | 2024-04-05 12:43 | XMS_ITS | Continuity of Care Document ---
Author Organization [facility] C ancer Care Address [address] [place] [address]- Care Team Providers Care Warehouse Traffic Supervisor Name Role Phone Dilan CASTRO, Rohan Moreau Primary Care Physician [phone] Encounter [facility] Date(s): 08/14/23 - 09/13/23 [facility] Care [address] [place] [address] Allergies, Adverse Reactions, Alerts No [...] 06/10/23 18:14:00 EST, Route to Pharmacy Electronically, [facility] #[id number], Partial fill upon patient request if the [...] tablet, 4 Refills, Maintenance, 06/26/23 10:12:00 EST, [facility] #[id number], 178, cm, 06/17/23 10:46:00 EST, Height, 47.2, [...] tablet, 0 Refills, Maintenance, 01/13/23 10:51:00 EDT, [facility]/pharmacy #1234, Partial fill upon [...] Refills, Maintenance, 01/27/23 16:21:00 EDT, REC Powder, [facility] #[id number], Partial fill upon patient request if the prescription is for a schedule II... Start Date: 01/27/23 Status: Ordered predniSONE 20 mg oral tablet 2 tablet = 40 mg, By Mouth, Daily, Continue 2 tablets daily until told to decrease. Must take with food., # 60 tablet, 0 Refills, Maintenance, 06/11/23 13:25:00 EST, Tablet, [facility] #[id number], Partial fill upon patient request if the [...] Team Personnel Name: Rohan Kong MD Position: [facility] Outreach Member Role: PCP Address: Address: [address] [place] [address]- Name: Светлана Ellis RN Position: [facility] Onco RN Member Role: Primary Care Nurse Care Team Related Persons Name: WILLIAMS CLAUDIO Address: home [address] [place] [id number] Name: EITAN ORNELAS
--- OUTSIDE RECORDS SUMMARY | 2024-04-05 12:43 | XMS_ITS | Continuity of Care Document ---
Author Organization [facility] Address [address] [place] [address]- Care Team Providers Care Fire Alarm Inspector Name Role Phone Dilan CASTRO, Rohan Moreau Primary Care Physician Encounter [facility] Date(s): 06/12/23 - 07/12/23 [facility] [address] [place] [address]- [place] Allergies, Adverse Reactions, Alerts No Known Medication [...] Acute 07/27/23 9:15:00 EST, 05/28/23 9:15:00 EST, [facility] #[id number], Partial fill upon patient request if the prescription is for a schedule II opio... Start Date: 05/28/23 Stop Date: 07/27/23 Status: Ordered gabapentin 100 mg oral capsule 100 mg, 1, capsule, By Mouth, 3 times a day, # 90 capsule, Refills 5, Tot. Refills 5, Maintenance, 06/10/23 18:14:00 EST, Route to Pharmacy Electronically, [facility] #[id number], Partial fill upon patient request if the [...] tablet, 4 Refills, Maintenance, 06/26/23 10:12:00 EST, [facility] #[id number], 178, cm, 06/17/23 10:46:00 EST, Height, 47.2, [...] tablet, 0 Refills, Maintenance, 01/13/23 10:51:00 EDT, [facility]acy #1234, Partial fill upon patient request if the prescription is for a schedule II opioid drug., 178, cm, 12/30/22... Start Date: 01/13/23 Status: Ordered oxyCODONE 10 mg oral tablet 1 tablet = 10 mg, By Mouth, Every 4 hours, PRN as needed for pain, # 50 tablet, 0 Refills, Maintenance, 06/23/23 13:13:00 EST, Tablet, [facility] #[id number], Partial fill upon patient request if the prescription is for a schedule II opioid drug.... Start Date: 06/23/23 Status: Ordered polyethylene glycol 3350 oral powder for reconstitution = 17 Gm, By Mouth, Daily, PRN Constipation, dissolve in water before taking, # 12 each, 0 Refills, Maintenance, 01/27/23 16:21:00 EDT, REC Powder, [facility] #[id number], Partial fill upon patient request if the prescription is for a schedule II... Start Date: 01/27/23 Status: Ordered predniSONE 20 mg oral tablet 2 tablet = 40 mg, By Mouth, Daily, Continue 2 tablets daily until told to decrease. Must take with food., # 60 tablet, 0 Refills, Maintenance, 06/11/23 13:25:00 EST, Tablet, [facility] #[id number], Partial fill upon patient request if the [...] Team Personnel Name: Rohan Kong MD Position: [facility] Outreach Member Role: PCP Address: Address: [address] [place] [address]- Name: Светлана Ellis RN Position: [facility] Onco RN Member Role: Primary Care Nurse Care Team Related Persons Name: WILLIAMS CLAUDIO Address: home [address] [place] [phone] Name: EITAN ORNELAS
--- OUTSIDE RECORDS SUMMARY | 2024-04-05 12:43 | XMS_ITS | Continuity of Care Document ---
Author Organization [facility] Address [address] [place] [address]- Care Team Providers Care Pole Framer Name Role Phone Dilan CASTRO, Rohan Moreau Primary Care Physician Encounter [facility] Date(s): 06/16/23 - 07/16/23 [facility] Care [address] [place] [id number] Allergies, Adverse Reactions, Alerts No Known [...] Acute 07/27/23 9:15:00 EST, 05/28/23 9:15:00 EST, [email or web address] #[id number], Partial fill upon patient request if the prescription is for a schedule II opio... Start Date: 05/28/23 Stop Date: 07/27/23 Status: Ordered gabapentin 100 mg oral capsule 100 mg, 1, capsule, By Mouth, 3 times a day, # 90 capsule, Refills 5, Tot. Refills 5, Maintenance, 06/10/23 18:14:00 EST, Route to Pharmacy Electronically, [facility] #[id number], Partial fill upon patient request if the [...] tablet, 4 Refills, Maintenance, 06/26/23 10:12:00 EST, [facility] #[id number], 178, cm, 06/17/23 10:46:00 EST, Height, 47.2, [...] 0 Refills, Maintenance, 07/16/23 11:26:00 EST, Tablet, [email or web address] #[id number], Partial fill upon patient request if the prescription is for a schedule II opioid drug.... Start Date: 07/16/23 Status: Ordered polyethylene glycol 3350 oral powder for reconstitution = 17 Gm, By Mouth, Daily, PRN Constipation, dissolve in water before taking, # 12 each, 0 Refills, Maintenance, 01/27/23 16:21:00 EDT, REC Powder, [email or web address] #[id number], Partial fill upon patient request if the prescription is for a schedule II... Start Date: 01/27/23 Status: Ordered predniSONE 20 mg oral tablet 2 tablet = 40 mg, By Mouth, Daily, Continue 2 tablets daily until told to decrease. Must take with food., # 60 tablet, 0 Refills, Maintenance, 06/11/23 13:25:00 EST, Tablet, [email or web address] #[id number], Partial fill upon patient request if the [...] Team Personnel Name: Rohan Kong MD Position: [facility] Outreach Member Role: PCP Address: Address: [address] [place] [address]- Name: Светлана Ellis RN Position: [facility] Onco RN Member Role: Primary Care Nurse Care Team Related Persons Name: WILLIAMS CLAUDIO Address: home [address] [place] [phone] Name: EITAN ORNELAS
--- OUTSIDE RECORDS SUMMARY | 2024-04-05 12:43 | XMS_ITS | Continuity of Care Document ---
Author Organization [facility] ancer Care Address [address] [place] [address]- Care Team Providers Care National Sales Consultant Name Role Phone Dilan CASTRO, Rohan Moreau Primary Care Physician Encounter [facility] [place] Date(s): 06/26/23 - 07/26/23 [facility] Care [address] [place] [id number] Allergies, Adverse Reactions, Alerts No Known [...] Acute 07/27/23 9:15:00 EST, 05/28/23 9:15:00 EST, [facility] #[id number], Partial fill upon patient request if the prescription is for a schedule II opio... Start Date: 05/28/23 Stop Date: 07/27/23 Status: Ordered gabapentin 100 mg oral capsule 100 mg, 1, capsule, By Mouth, 3 times a day, # 90 capsule, Refills 5, Tot. Refills 5, Maintenance, 06/10/23 18:14:00 EST, Route to Pharmacy Electronically, [facility] #[id number], Partial fill upon patient request if the [...] tablet, 4 Refills, Maintenance, 06/26/23 10:12:00 EST, [facility] #[id number], 178, cm, 06/17/23 10:46:00 EST, Height, 47.2, [...] tablet, 0 Refills, Maintenance, 01/13/23 10:51:00 EDT, [facility]/pharmacy #[id number], Partial fill upon patient request if the prescription is for a schedule II opioid drug., 178, cm, 12/30/22... Start Date: 01/13/23 Status: Ordered oxyCODONE 10 mg oral tablet 1 tablet = 10 mg, By Mouth, Every 4 hours, PRN as needed for pain, # 50 tablet, 0 Refills, Maintenance, 07/16/23 11:26:00 EST, Tablet, [facility] #[id number], Partial fill upon patient request if the prescription is for a schedule II opioid drug.... Start Date: 07/16/23 Status: Ordered polyethylene glycol 3350 oral powder for reconstitution = 17 Gm, By Mouth, Daily, PRN Constipation, dissolve in water before taking, # 12 each, 0 Refills, Maintenance, 01/27/23 16:21:00 EDT, REC Powder, [facility] #[id number], Partial fill upon patient request if the prescription is for a schedule II... Start Date: 01/27/23 Status: Ordered predniSONE 20 mg oral tablet 2 tablet = 40 mg, By Mouth, Daily, Continue 2 tablets daily until told to decrease. Must take with food., # 60 tablet, 0 Refills, Maintenance, 06/11/23 13:25:00 EST, Tablet, [facility] #[id number], Partial fill upon patient request if the [...] Team Personnel Name: Rohan Kong MD Position: [facility] Outreach Member Role: PCP Address: Address: [address] [place] [address]- Name: Светлана Ellis RN Position: [facility] Onco RN Member Role: Primary Care Nurse Care Team Related Persons Name: WILLIAMS CLAUDIO Address: home [address] [place] [address] Name: EITAN ORNELAS
--- OUTSIDE RECORDS SUMMARY | 2024-04-05 12:43 | XMS_ITS | Continuity of Care Document ---
Author Organization [facility] ancer Care Address [address] [place] [address]- Care Team Providers Care Sequins Spooler Name Role Phone Dilan CASTRO, Rohan Moreau Primary Care Physician [phone] Encounter [facility] [id number] Date(s): 06/16/23 - 07/16/23 [facility] Care [address] [place] [address] Allergies, Adverse Reactions, Alerts No Known [...] Acute 07/27/23 9:15:00 EST, 05/28/23 9:15:00 EST, [facility] #[id number], Partial fill upon patient request if the prescription is for a schedule II opio... Start Date: 05/28/23 Stop Date: 07/27/23 Status: Ordered gabapentin 100 mg oral capsule 100 mg, 1, capsule, By Mouth, 3 times a day, # 90 capsule, Refills 5, Tot. Refills 5, Maintenance, 06/10/23 18:14:00 EST, Route to Pharmacy Electronically, [facility] #[id number], Partial fill upon patient request if the [...] tablet, 4 Refills, Maintenance, 06/26/23 10:12:00 EST, [facility] #[id number], 178, cm, 06/17/23 10:46:00 EST, Height, 47.2, [...] 0 Refills, Maintenance, 01/13/23 10:51:00 EDT, [facility]/pharmacy #[id number], Partial fill upon patient request if the prescription is for a schedule II opioid drug., 178, cm, 12/30/22... Start Date: 01/13/23 Status: Ordered oxyCODONE 10 mg oral tablet 1 tablet = 10 mg, By Mouth, Every 4 hours, PRN as needed for pain, # 50 tablet, 0 Refills, Maintenance, 07/16/23 11:26:00 EST, Tablet, [facility] #[id number], Partial fill upon patient request if the prescription is for a schedule II opioid drug.... Start Date: 07/16/23 Status: Ordered polyethylene glycol 3350 oral powder for reconstitution = 17 Gm, By Mouth, Daily, PRN Constipation, dissolve in water before taking, # 12 each, 0 Refills, Maintenance, 01/27/23 16:21:00 EDT, REC Powder, [facility] #[id number], Partial fill upon patient request if the prescription is for a schedule II... Start Date: 01/27/23 Status: Ordered predniSONE 20 mg oral tablet 2 tablet = 40 mg, By Mouth, Daily, Continue 2 tablets daily until told to decrease. Must take with food., # 60 tablet, 0 Refills, Maintenance, 06/11/23 13:25:00 EST, Tablet, [facility] #[id number], Partial fill upon patient request if the [...] Team Personnel Name: Rohan Kong MD Position: [facility] Outreach Member Role: PCP Address: Address: [address] [place] [address]- Name: Светлана Ellis RN Position: [facility] Onco RN Member Role: Primary Care Nurse Care Team Related Persons Name: WILLIAMS CLAUDIO Address: home [address] [place] [address] Name: EITAN ORNELAS
--- OUTSIDE RECORDS SUMMARY | 2024-04-05 12:43 | XMS_ITS | Continuity of Care Document ---
Author Organization [facility] C an[facility] Care Address [address] [place] [address]- Care Team Providers Care Principal Gifts Officer Name Role Phone Dilan CASTRO, Rohan Moreau Primary Care Physician [phone] Encounter [facility] Date(s): 01/19/24 - 02/18/24 [facility] Care [address] [place] [id number] Allergies, Adverse Reactions, Alerts No [...] Team Personnel Name: Rohan Kong MD Position: [facility] Outreach Member Role: PCP Address: Address: [address] [place] [address]- Name: Светлана Ellis RN Position: [facility] Onco RN Member Role: Primary Care Nurse Care Team Related Persons Name: WILLIAMS CLAUDIO Address: home [address] [place] [address] Name: EITAN ORNELAS
--- OUTSIDE RECORDS SUMMARY | 2024-04-05 12:43 | XMS_ITS | Continuity of Care Document ---
Author Organization [facility] Address [address] [place] [address]- Care Team Providers Care Dental Laboratory Assistant Name Role Phone Dilan CASTRO, Rohan Moreau Primary Care Physician Encounter [facility] Date(s): 12/26/23 - 01/25/24 [facility] Care [address] [place] [id number] Allergies, Adverse Reactions, Alerts [...] drug., 17... Start Date: 01/08/24 Status: Ordered Problem List Condition Confirmation Course Effective Dates Status Health [facility] Informant Tobacco abuse Confirmed Active Underweight Confirmed Active Social History Social History Type Response Smoking Status Former smoker, quit more than 30 days ago entered on: 10/21/23 Sex Patient Care team information Care Team Personnel Name: Dilan CASTRO , Rohan Moreau Position: [facility] Outreach Member Role: PCP Address: Address: [address] [place] [address]- Name: Светлана Ellis RN Position: [facility] Onco RN Member Role: Primary Care Nurse Care Team Related Persons Name: WILLIAMS CLAUDIO Address: home [address] [place] [address] Name: EITAN ORNELAS
--- OUTSIDE RECORDS SUMMARY | 2024-04-05 12:43 | XMS_ITS | Continuity of Care Document ---
Author Organization [facility] C an[facility] Care Address [address] [place] [address]- Care Team Providers Care Funeral Service Practitioner/Embalmer Name Role Phone Dilan CASTRO, Rohan Moreau Primary Care Physician Encounter [facility] [place] Date(s): 12/26/23 - 01/25/24 [facility] [address] [place] [id number] Allergies, Adverse Reactions, Alerts No Known [...] Name: Dilan CASTRO , Rohan Moreau Position: [facility] Outreach Member Role: PCP Address: Address: [address] [place] [address]- Name: Светлана Ellis RN Position: [facility] Onco RN Member Role: Primary Care Nurse Care Team Related Persons Name: WILLIAMS CLAUDIO Address: home [address] [place] [address] Name: EITAN ORNELAS
--- OUTSIDE RECORDS SUMMARY | 2024-04-05 12:43 | XMS_ITS | Continuity of Care Document ---
Author Organization [facility] ancer Care Address [address] [place] [address]- Care Team Providers Care Hand Shaper Name Role Phone Dilan CASTRO, Rohan Moreau Primary Care Physician Encounter [facility] Date(s): 06/26/23 - 07/26/23 [facility] Care [address] [place] [id number] Allergies, Adverse Reactions, Alerts [...] Acute 07/27/23 9:15:00 EST, 05/28/23 9:15:00 EST, [email or web address] #[id number], Partial fill upon patient request if the prescription is for a schedule II opio... Start Date: 05/28/23 Stop Date: 07/27/23 Status: Ordered gabapentin 100 mg oral capsule 100 mg, 1, capsule, By Mouth, 3 times a day, # 90 capsule, Refills 5, Tot. Refills 5, Maintenance, 06/10/23 18:14:00 EST, Route to Pharmacy Electronically, [facility] #[id number], Partial fill upon patient request if the [...] tablet, 4 Refills, Maintenance, 06/26/23 10:12:00 EST, [facility] #[id number], 178, cm, 06/17/23 10:46:00 EST, Height, 47.2, [...] tablet, 0 Refills, Maintenance, 01/13/23 10:51:00 EDT, [facility]/pharmacy #[id number], Partial fill upon patient request if the prescription is for a schedule II opioid drug., 178, cm, 12/30/22... Start Date: 01/13/23 Status: Ordered oxyCODONE 10 mg oral tablet 1 tablet = 10 mg, By Mouth, Every 4 hours, PRN as needed for pain, # 50 tablet, 0 Refills, Maintenance, 07/16/23 11:26:00 EST, Tablet, [email or web address] #[id number], Partial fill upon patient request if the prescription is for a schedule II opioid drug.... Start Date: 07/16/23 Status: Ordered polyethylene glycol 3350 oral powder for reconstitution = 17 Gm, By Mouth, Daily, PRN Constipation, dissolve in water before taking, # 12 each, 0 Refills, Maintenance, 01/27/23 16:21:00 EDT, REC Powder, [email or web address] #[id number], Partial fill upon patient request if the prescription is for a schedule II... Start Date: 01/27/23 Status: Ordered predniSONE 20 mg oral tablet 2 tablet = 40 mg, By Mouth, Daily, Continue 2 tablets daily until told to decrease. Must take with food., # 60 tablet, 0 Refills, Maintenance, 06/11/23 13:25:00 EST, Tablet, [email or web address] #[id number], Partial fill upon patient request if the [...] Team Personnel Name: Rohan Kong MD Position: [facility] Outreach Member Role: PCP Address: Address: [address] [place] [address]- Name: Светлана Ellis RN Position: [facility] Onco RN Member Role: Primary Care Nurse Care Team Related Persons Name: WILLIAMS CLAUDIO Address: home [address] [place] [address] Name: EITAN ORNELAS
--- OUTSIDE RECORDS SUMMARY | 2024-04-05 12:43 | XMS_ITS | Continuity of Care Document ---
Author Organization [facility] C ancer Care Address [address] [place] [address]- Care Team Providers Care Chemical Technician Name Role Phone Rohan Kong MD Primary Care Physician Encounter [facility] Date(s): 12/23/23 - 02/22/24 [facility] Care [address] [place] [id number] Discharge Disposition: A-D/C Home Attending Physician: Logan [...] Team Personnel Name: Rohan Kong MD Position: [facility] Outreach Member Role: PCP Address: Address: [address] [place] [address]- Name: Светлана Ellis RN Position: [facility] Onco RN Member Role: Primary Care Nurse Name: Logan Neri MD Position: [facility] Physician - Oncology Med Service: Hematology & Oncology Member Role: Admitting Physician Address: Address: [address] [place] [address] for Cancer Care [facility] [place] [address]- Care Team Related Persons Name: WILLIAMS CLAUDIO Address: home [address] [place] [place] [id number] Name: EITAN ORNELAS
--- OUTSIDE RECORDS SUMMARY | 2024-04-05 12:43 | XMS_ITS | Continuity of Care Document ---
Author Organization [facility] ancer Care Address [address] [place] [address]- Care Team Providers Care Superintendent Job Name Role Phone Dilan CASTRO, Rohan Moreau Primary Care Physician [phone] En[place] [facility] Date(s): 05/05/23 - 06/04/23 [facility] Care [address] [place] [id number] Allergies, Adverse Reactions, Alerts No Known [...] Acute 07/27/23 9:15:00 EST, 05/28/23 9:15:00 EST, [facility] #[id number], Partial fill upon patient request if the prescription is for a schedule II opio... Start Date: 05/28/23 Stop Date: 07/27/23 Status: Ordered gabapentin 100 mg oral capsule 100 mg, 1, capsule, By Mouth, 3 times a day, # 90 capsule, Refills 5, Tot. Refills 5, Maintenance, 03/11/23 10:50:00 EDT, Route to Pharmacy Electronically, [facility] #[id number], Partial fill upon patient request if the [...] 0 Refills, Maintenance, 06/04/23 15:33:00 EST, Tablet, [facility] #[id number], Partial fill upon patient request if the [...] tablet, 0 Refills, Maintenance, 01/13/23 10:51:00 EDT, [facility]/pharmacy #[id number], Partial fill upon patient request if the prescription is for a schedule II opioid drug., riddhi Raymond, 12/30/22... Start Date: 01/13/23 Status: Ordered oxyCODONE 10 mg oral tablet 1 tablet = 10 mg, By Mouth, Every 4 hours, PRN as needed for pain, # 50 tablet, 0 Refills, Maintenance, 05/26/23 10:48:00 EST, Tablet, [facility] #[id number], Partial fill upon patient request if the prescription is for a schedule II opioid drug.... Start Date: 05/26/23 Status: Ordered polyethylene glycol 3350 oral powder for reconstitution = 17 Gm, By Mouth, Daily, PRN Constipation, dissolve in water before taking, # 12 each, 0 Refills, Maintenance, 01/27/23 16:21:00 EDT, REC Powder, [facility] #[id number], Partial fill upon patient request if the prescription is for a schedule II... Start Date: 01/27/23 Status: Ordered predniSONE 20 mg oral tablet See Instructions, 3 tablet By Mouth Daily with food or milk. Taper as directed by provider, # 60 tablet, 0 Refills, Maintenance, 05/13/23 11:43:00 EDT, Tablet, [facility] #[id number], Partial fill upon patient request if the [...] Team Personnel Name: Rohan Kong MD Position: [facility] Outreach Member Role: PCP Address: Address: [address] [place] [address]- Name: Светлана Ellis RN Position: [facility] Onco RN Member Role: Primary Care Nurse Care Team Related Persons Name: WILLIAMS CLAUDIO Address: home [address] [place] [address] Name: EITAN ORNELAS
--- OUTSIDE RECORDS SUMMARY | 2024-04-05 12:43 | XMS_ITS | Continuity of Care Document ---
Author Organization [facility] ancer Care Address [address] [place] [address]- Care Team Providers Care Copying Machine Repairer Name Role Phone Dilan CASTRO, Rohan Moreau Primary Care Physician Encounter [facility] Date(s): 05/12/23 - 06/11/23 [facility] Care [address] [place] [id number] Allergies, Adverse Reactions, Alerts No [...] Acute 07/27/23 9:15:00 EST, 05/28/23 9:15:00 EST, [facility] #[id number], Partial fill upon patient request if the prescription is for a schedule II opio... Start Date: 05/28/23 Stop Date: 07/27/23 Status: Ordered gabapentin 100 mg oral capsule 100 mg, 1, capsule, By Mouth, 3 times a day, # 90 capsule, Refills 5, Tot. Refills 5, Maintenance, 06/10/23 18:14:00 EST, Route to Pharmacy Electronically, [facility] #[id number], Partial fill upon patient request if the [...] 0 Refills, Maintenance, 06/04/23 15:33:00 EST, Tablet, [facility] #[id number], Partial fill upon patient request if the prescription isfor a schedule II opioid drug., 178riddhi, 05/05/23 1... Start Date: 06/04/23 Status: Ordered [...] tablet, 0 Refills, Maintenance, 01/13/23 10:51:00 EDT, [facility]/pharmacy #[id number], Partial fill upon patient request if the prescription is for a schedule II opioid drug., 178, cm, 12/30/22... Start Date: 01/13/23 Status: Ordered oxyCODONE 10 mg oral tablet 1 tablet = 10 mg, By Mouth, Every 4 hours, PRN as needed for pain, # 50 tablet, 0 Refills, Maintenance, 05/26/23 10:48:00 EST, Tablet, [facility] #[id number], Partial fill upon patient request if the prescription is for a schedule II opioid drug.... Start Date: 05/26/23 Status: Ordered polyethylene glycol 3350 oral powder for reconstitution = 17 Gm, By Mouth, Daily, PRN Constipation, dissolve in water before taking, # 12 each, 0 Refills, Maintenance, 01/27/23 16:21:00 EDT, REC Powder, [facility] #[id number], Partial fill upon patient request if the prescription is for a schedule II... Start Date: 01/27/23 Status: Ordered predniSONE 20 mg oral tablet 2 tablet = 40 mg, By Mouth, Daily, Continue 2 tablets daily until told to decrease. Must take with food., # 60 tablet, 0 Refills, Maintenance, 06/11/23 13:25:00 EST, Tablet, [facility] #[id number], Partial fill upon patient request if the [...] Team Personnel Name: Rohan Kong MD Position: [facility] Outreach Member Role: PCP Address: Address: [address] [place] [address]- Name: Светлана Ellis RN Position: [facility] Onco RN Member Role: Primary Care Nurse Care Team Related Persons Name: WILLIAMS CLAUDIO Address: home [address] [place] [address] Name: EITAN ORNELAS
--- OUTSIDE RECORDS SUMMARY | 2024-04-05 12:43 | XMS_ITS | Continuity of Care Document ---
Author Organization [facility] Address [address] [place] [address], [address] [place] [address]- Care Team Providers Care Associate Program Manager Name Role Phone Dilan CASTRO, Rohan Moreau Primary Care Physician Encounter [facility] Date(s): 12/17/22 - 12/24/22 [facility] [address] [place] [address], [address] [place] [address]- Attending Physician: Bibi Weston MD Allergies, Adverse Reactions, Alerts No Known [...] EVERY DAY Start Date: 12/17/22 Status: Ordered oxyCODONE 5 mg oral tablet TAKE 1 TABLET BY MOUTH EVERY 6 HOURS NEEDED FOR PAIN FOR 7 DAYS Start Date: 12/17/22 Status: Ordered sucralfate 1 gm oral tablet TAKE 1 TABLET BY MOUTH FOUR TIMES A DAY BEFORE MEALS & BEDTIME FOR 21 DAYS Start Date: 12/17/22 Status: Ordered Problem List Condition Confirmation Course Effective Dates Status Health St [facility] Informant Tobacco abuse Confirmed Active Underweight Confirmed Active Vital Signs Most recent to oldest [Reference Range]: 1 Height 178 cm (12/17/22 11:13 AM) Weight 43.3 kg (12/17/22 11:13 AM) Oxygen Saturation [94-100 %] 97 % (12/17/22 11:13 AM) Pulse Rate [55-90 bpm] 82 bpm (12/17/22 11:13 AM) Body Mass Index [18.5-24.99 kg/m2] 13.67 kg/m2 *L* (12/17/22 11:13 AM) Blood Pressure [90-138/55-84 mm Hg] 112/ 58mm Hg (12/17/22 11:13 AM) Temperature [96.8-100.4 DegF] 98.3 DegF (12/17/22 11:13 AM) Mode of Delivery (Oxygen) Room air (12/17/22 11:13 AM) Blood pressure sites Arm, right (12/17/22 11:13 AM) Temperature Route Temporal (12/17/22 11:13 AM) Weight Obtained Via Standing scale (12/17/22 11:13 AM) Social History Social History Type Response Smoking Status 5-9 cigarettes (betw een 1/4 to 1/2 pack)/day in last 30 days entered on: 11/13/22 Sex Patient Care team information Care Team Personnel Name: Saba Tran RN Position: [facility] RN Member Role: Primary Care Nurse Name: Rohan Kong MD Position: [facility] Outreach Member Role: PCP Address: Address: [address] [place] [address]- Care Team Related Persons Name: WILLIAMS CLAUDIO Address: home [address] [place] [address] Name: EITAN ORNELAS
--- OUTSIDE RECORDS SUMMARY | 2024-04-05 12:43 | XMS_ITS | Continuity of Care Document ---
Author Organization [facility] C ancer Care Address [address] [place] [address]- Care Team Providers Care Youth Advocate Name Role Phone Dilan CASTRO, Rohan Moreau Primary Care Physician [place] [facility] Date(s): 12/26/23 - 01/25/24 [facility] Care [address] [place] [address] Allergies, Adverse Reactions, Alerts No [...] Name: Dilan CASTRO , Rohan Moreau Position: [facility] Outreach Member Role: PCP Address: Address: [address] [place] [address]- Name: Светлана Ellis RN Position: [facility] Onco RN Member Role: Primary Care Nurse Care Team Related Persons Name: WILLIAMS CLAUDIO Address: home [address] [place] [address] Name: EITAN ORNELAS
--- OUTSIDE RECORDS SUMMARY | 2024-04-05 12:43 | XMS_ITS | Continuity of Care Document ---
Author Organization [facility] C ancer Care Address [address] [place] [address]- Care Team Providers Care Aluminum Sheet Cutter Name Role Phone Dilan CASTRO, Rohan Moreau Primary Care Physician En[place] [facility] Date(s): 08/14/23 - 09/13/23 [facility] Care [address] [place] [id number] Attending Physician: AdmRamin nobles Admitting Physician: Admtr, Ar8 Referring Physician: Admtr, Ar8 Allergies, Adverse Reactions, Alerts No Known Medication [...] 06/10/23 18:14:00 EST, Route to Pharmacy Electronically, [facility] #[id number], Partial fill upon patient request if the [...] tablet, 4 Refills, Maintenance, 06/26/23 10:12:00 EST, [facility] #[id number], 178, cm, 06/17/23 10:46:00 EST, Height, 47.2, [...] tablet, 0 Refills, Maintenance, 01/13/23 10:51:00 EDT, [facility]/pharmacy #[id number], Partial fill upon patient request if [...] Refills, Maintenance, 01/27/23 16:21:00 EDT, REC Powder, [facility] #[id number], Partial fill upon patient request if the prescription is for a schedule II... Start Date: 01/27/23 Status: Ordered predniSONE 20 mg oral tablet 2 tablet = 40 mg, By Mouth, Daily, Continue 2 tablets daily until told to decrease. Must take with food., # 60 tablet, 0 Refills, Maintenance, 06/11/23 13:25:00 EST, Tablet, [facility] #[id number], Partial fill upon patient request if the [...] Team Personnel Name: Rohan Kong MD Position: [facility] Outreach Member Role: PCP Address: Address: [address] [place] [address]- Name: Светлана Ellis RN Position: [facility] Onco RN Member Role: Primary Care Nurse Care Team Related Persons Name: WILLIAMS CLAUDIO Address: home [address] [place] [address] Name: EITAN ORNELAS
--- OUTSIDE RECORDS SUMMARY | 2024-04-05 12:43 | XMS_ITS | Continuity of Care Document ---
Author Organization [facility] C ancer Care Address [address] [place] [address]- Care Team Providers Care Carry In Worker Name Role Phone Dilan CASTRO, Rohan Moreau Primary Care Physician Encounter [facility] [place] Date(s): 12/23/23 - 01/22/24 [facility] Care [address] [place] [id number] Attending Physician: AdmRamin nobles Admitting Physician: [...] Team Personnel Name: Rohan Kong MD Position: [facility] Outreach Member Role: PCP Address: Address: [address] [place] [address]- Name: Светлана Ellis RN Position: [facility] Onco RN Member Role: Primary Care Nurse Care Team Related Persons Name: WILLIAMS CLAUDIO Address: [address] [address] Name: EITAN ORNELAS
--- OUTSIDE RECORDS SUMMARY | 2024-04-05 12:43 | XMS_ITS | Continuity of Care Document ---
Author Organization [facility] ancer Care Address [address] [place] [address]- Care Team Providers Care Director Of Market Research Name Role Phone Dilan CASTRO, Rohan Moreau Primary Care Physician Encounter [facility] [place] Date(s): 01/15/23 - 02/14/[address] [address]- Allergies, Adverse Reactions, Alerts No Known Medication [...] tablet, 0 Refills, Maintenance, 01/13/23 10:51:00 EDT, [facility]/pharmacy #[id number], Partial fill upon patient request if the prescription is for a schedule II opioid drug., 178, cm, 12/30/22... Start Date: 01/13/23 Status: Ordered oxyCODONE 5 mg oral tablet 10 mg, 2, tablet, By Mouth, Every 4 hours, PRN, increase due to increasing cancer pain, # 80 tablet, Refills 0, Tot. Refills 0, Maintenance, Pain , Severe, 02/03/23 8:52:00 EDT, Route to Pharmacy Electronically, [facility] #[id number], Partial fi... Start Date: 02/03/23 Status: Ordered polyethylene glycol 3350 oral powder for reconstitution = 17 Gm, By Mouth, Daily, PRN Constipation, dissolve in water before taking, # 12 each, 0 Refills, Maintenance, 01/27/23 16:21:00 EDT, REC Powder, [facility] #[id number], Partial fill upon patient request if the [...] Team Personnel Name: Saba Tran RN Position: [facility] RN Member Role: Primary Care Nurse Name: Rohan Kong MD Position: S Outreach Member Role: PCP Address: Address: [address] [place] [id number] Care Team Related Persons Name: WILLIAMS CLAUDIO Address: home [address] [place] [address] Name: EITAN ORNELAS
--- OUTSIDE RECORDS SUMMARY | 2024-04-05 12:43 | XMS_ITS | Continuity of Care Document ---
Author Organization [facility] Address [address] [place] [address]- Care Team Providers Care Ramp Boss Name Role Phone Dilan CASTRO, Rohan Moreau Primary Care Physician [phone] Encounter [facility] Date(s): 07/22/23 - 08/21/23 [facility] Care [address] [place] [id number] Allergies, Adverse Reactions, Alerts [...] 06/10/23 18:14:00 EST, Route to Pharmacy Electronically, [facility] #[id number], Partial fill upon patient request if the [...] tablet, 4 Refills, Maintenance, 06/26/23 10:12:00 EST, [facility] #[id number], 178, cm, 06/17/23 10:46:00 EST, Height, 47.2, [...] tablet, 0 Refills, Maintenance, 01/13/23 10:51:00 EDT, [facility]/pharmacy #[id number], Partial fill upon patient request if the prescription is for a schedule II opioid drug., 178, cm, 12/30/22... Start Date: 01/13/23 Status: Ordered oxyCODONE 10 mg oral tablet 1 tablet = 10 mg, By Mouth, Every 4 hours, PRN as needed for pain, # 50 tablet, 0 Refills, Maintenance, 07/31/23 12:04:00 EST, Tablet, [facility] #[id number], Partial fill upon patient request if the [...] Refills, Maintenance, 01/27/23 16:21:00 EDT, REC Powder, [facility] #[id number], Partial fill upon patient request if the prescription is for a schedule II... Start Date: 01/27/23 Status: Ordered predniSONE 20 mg oral tablet 2 tablet = 40 mg, By Mouth, Daily, Continue 2 tablets daily until told to decrease. Must take with food., # 60 tablet, 0 Refills, Maintenance, 06/11/23 13:25:00 EST, Tablet, [facility] #[id number], Partial fill upon patient request if the [...] Team Personnel Name: Rohan Kong MD Position: [facility] Outreach Member Role: PCP Address: Address: [address] [place] [address]- Name: Светлана Ellis RN Position: [facility] Onco RN Member Role: Primary Care Nurse Care Team Related Persons Name: WILLIAMS CLAUDIO Address: home [address] [place] [address] Name: EITAN ORNELAS
--- OUTSIDE RECORDS SUMMARY | 2024-04-05 12:43 | XMS_ITS | Continuity of Care Document ---
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 Start Date: 05/28/23 Stop Date: 07/27/23 Status: Ordered gabapentin 100 mg oral capsule 100 mg, 1, capsule, By Mouth, 3 times a day, # 90 capsule, Refills 5, Tot. Refills 5, Maintenance, 06/10/23 18:14:00 EST, Route to Pharmacy Electronically, [facility] #[id number], Partial fill upon patient request if the [...] tablet, 4 Refills, Maintenance, 06/26/23 10:12:00 EST, [facility] #[id number], 178, cm, 06/17/23 10:46:00 EST, Height, 47.2, [...] tablet, 0 Refills, Maintenance, 01/13/23 10:51:00 EDT, [facility]/pharmacy #[id number], Partial fill upon patient request if the prescription is for a schedule II opioid drug., 178, cm, 12/30/22... Start Date: 01/13/23 Status: Ordered oxyCODONE 10 mg oral tablet 1 tablet = 10 mg, By Mouth, Every 4 hours, PRN as needed for pain, # 50 tablet, 0 Refills, Maintenance, 06/23/23 13:13:00 EST, Tablet, [facility] #[id number], Partial fill upon patient request if the prescription is for a schedule II opioid drug.... Start Date: 06/23/23 Status: Ordered polyethylene glycol 3350 oral powder for reconstitution = 17 Gm, By Mouth, Daily, PRN Constipation, dissolve in water before taking, # 12 each, 0 Refills, Maintenance, 01/27/23 16:21:00 EDT, REC Powder, [facility] #[id number], Partial fill upon patient request if the prescription is for a schedule II... Start Date: 01/27/23 Status: Ordered predniSONE 20 mg oral tablet 2 tablet = 40 mg, By Mouth, Daily, Continue 2 tablets daily until told to decrease. Must take with food., # 60 tablet, 0 Refills, Maintenance, 06/11/23 13:25:00 EST, Tablet, [facility] #[id number], Partial fill upon patient request if the [...] Most recent to oldest [Reference Range]: 1 2 3 Height 178 cm (06/10/23 9:31 AM) 178 cm (05/05/23 2:11 PM) 178 cm (05/05/23 1:50 PM) Weight 47.2 kg (06/10/23 9:31 AM) 43.0 kg (04/29/23 9:20 AM) 43.5 kg (04/08/23 11:06 AM) Oxygen Saturation [94-100 %] 99 % (06/10/23:31 AM) 100 % (05/05/23 1:50 PM) 99 % (04/29/23: AM) Pulse Rate [55-90 bpm] 98 bpm *H* (06/10/23:31 AM) 85 bpm (05/05/23 1:50 PM) 96 bpm *H* (04/29/23: AM) Body Mass Index [18.5-24.99 kg/m2] 14.9 kg/m2 *L* (06/10/23:31 AM) 13.57 kg/m2 *L* (04/29/23 AM) 13.73 kg/m2 *L* (04/08/23 11:06 AM) Blood Pressure [90-138/55-84 mm Hg] 179/99mm Hg *H* (06/10/23: AM) 112/63mm Hg (05/05/23 1:50 PM) 118/72mm Hg (04/29/23: AM) Temperature [96.8-100.4 DegF] 99.0 DegF (06/10/23:31 AM) 97.8 DegF (05/05/23 1:50 PM) 98.4 DegF (04/29/23: AM) Mode of Delivery (Oxygen) Room air (06/10/23 9:31 AM) Room air (05/05/23 1:50 PM) Room air (04/29/23: AM) Blood pressure sites Arm, right (06/10/23:31 AM) Arm, right (05/05/23 1:50 PM) Arm, left (04/29/23:20 AM) Temperature Route Oral (06/10/23 9:31 AM) Temporal (05/05/23 2:11 PM) Temporal (05/05/23 1:50 PM) Dry Weight 47.2 kg (06/10/23 9:31 AM) 43.0 kg (04/29/23 9:20 AM) 43.5 kg (04/08/23 11:06 AM) Weight Obtained Via Standing scale (06/10/23 9:31 AM) Standing scale (04/29/23 9:20 AM) Standing scale (04/08/23 11:06 AM) Dry Weight Obtained Via Standing scale (06/10/23 9:31 AM) Standing scale (04/29/23 9:20 AM) Standing scale (04/08/23 11:06 AM) Social History Social History Type Response Smoking Status Former smoker, quit more than 30 days ago entered on: 03/11/23 Sex Note * Gladys Mauro: PERFORM, SIGN, VERIFY Event Display: Patient Education/Instruction Authored Date: [id number] [facility] *Heme/Onc Adult Clinical Summary Name TERI CLAUDIO Age 67 Years 1955 PCP Dilan CASTRO , Rohan Moreau PCP Visit Date 12/06/2022 08:28:00 Additional Instructions: Scheduled Appointments?? Future Appointments ?No Future Appointments Scheduled Follow-Up Instructions ?? With: Address: When: Logan Neri [address] [place] [address] for Cancer Care, [facility] [place] [address] Business (2) 04/29/2023 10:30 AM With: Address: When: Logan Neri 03/11/2023 10:15 AM With: Address: When: oLgan Neri [address] [place] [address] for Cancer Care, [facility] [place] [address] Business (2) 01/27/2023 3:30 PM Diagnosis Neoplasm related pain (acute) (chronic) Medications: Please continue your medications until treatment is completed or stopped by your provider. Discuss any questions related to medications with your provider. Medications to Continue Taking That Have Changed [facility][id number], [address], [place] [id number], [phone] - Oxycodone (oxyCODONE 5 mg oral tablet) 2 tab(s) Oral every 4 hours as needed Pain , Severe. take 1 tab for less pain. Refills: 0. Next Dose: Medications to Continue with No Changes [id number], [address], [place] [id number], [phone] Ondansetron (ondansetron 4 mg oral tablet) 1 tab(s) Oral every 8 hours as needed Nausea & Vomiting. Refills: 0. Next Dose: [facility] #[id number], [address], [place] [id number], [phone] Gabapentin (gabapentin 100 mg oral capsule) 1 capsule Oral 3 times a day. Refills: 5. Next Dose: Polyethylene Glycol 3350 (polyethylene glycol 3350 oral powder for reconstitution) 17 gram Oral Daily as needed Constipation. dissolve in water before taking. Refills: 0. Next Dose: These medications were not printed or sent to your pharmacy Acetaminophen (acetaminophen 325 mg oral tablet) 650 Milligram Oral every 4 hours as needed Pain , Mild. Temperature Greater than 100.5. Next Dose: Mirtazapine (mirtazapine 7.5 mg oral tablet) 1 tab(s) Oral Daily at Bedtime. Next Dose: Multivitamin With Minerals (Multivit Therapeutic/Minerals Tablet) 1 tab(s) Oral Daily. Next Dose: Nicotine (nicotine 14 mg/24 hr transdermal film, extended release) APPLY 1 PATCH TOPICALLY DAILY FOR 14 DAYS. NOT COVERED. Next Dose: Omeprazole (omeprazole 20 mg oral enteric coated capsule) TAKE 1 CAPSULE BY MOUTH EVERY DAY. Next Dose: Sucralfate (sucralfate 1 gm oral tablet) TAKE 1 TABLET BY MOUTH FOUR TIMES A DAY BEFORE MEALS &BEDTIME FOR 21 DAYS. Next Dose: Allergy Info:?? No Known Medication Allergies Medications Given This Visit Medication Dose Route Pembrolizumab (Pembrolizumab IVPB) 200 mg IVPB Pembrolizumab (Pembrolizumab IVPB) 200 mg IVPB Pembrolizumab (Pembrolizumab IVPB) 200 mg IVPB Future Orders ?No future orders Vital Signs Height 178 cm Weight 39.5 kg BMI 12.47 kg/m2 Blood Pressure 118 mm Hg/62 mm Hg Temperature 97.5 DegF Pulse Rate 63 bpm Respiratory Rate 02 Sat Mode of Delivery 98 %/Room air You can now view a summary of your hospital visit from the comfort of your home through a free online portal called [facility]. [employer] is a website that allows you to securely view your medical information including discharge summary, medications and follow-up visits. ??You can alsosend a secure electronic message to your doctor???s office to request appointments, renew medications or just ask a question. You can enroll at [email or web address] or register during your next office visit. Disclaimer:?? The information provided is of a general nature and is intended to be used in conjunction with the recommendations and advice of your health care practitioner. ??Every effort has been made to ensure that the information provided is accurate and complete at the time it is provided to you however, as your needs change, or, as new ??information becomes available, different or additional instructions may be required. If you have questions, please consult with your primary care provider or pharmacist, as appropriate. ??This information is not intended to serve as substitution for assessment and evaluation by a qualified health care provider. If you do not have a primary care provider, you may find a [facility] provider by calling [facility] Last Guide Link at [phone]. [facility], in keeping with [facility] guidance, no longer requires face masks for staff, patientsor visitors in most situations. Similar to time spent indoors at other locations, there is the chance that you were exposed to respiratory viruses during your time with us (such as flu or COVID-19).? If you develop symptoms concerning for a viral respiratory infection, please seek testing (and treatment if indicated) from your medical provider or home test kit. For information about the plan of care including goals and instructions for your diagnosis, please see the patient education orders section of this document. Patient Education Materials?? The content of this educational material or handout may have been modified, supplemented, or adapted from its original content and format to support your individualized medical care. * Gladys Mauro: PERFORM, SIGN, VERIFY Event Display: Patient Education/Instruction Authored Date: [id number] [facility] *Heme/Onc Adult Clinical Summary Name TERI CLAUDIO Age 67 Years 1955 PCP Dilan CASTRO , Rohan Moreau PCP Visit Date 12/06/2022 08:28:00 Additional Instructions: Scheduled Appointments?? Future Appointments ?No Future Appointments Scheduled Follow-Up Instructions ?? With: Address: When: Logan Neri 03/11/2023 10:15 AM With: Address: When: Logan Neri [address] [place] [address] for Cancer Care, [facility] [place] [address] [facility] (2) 01/27/2023 3:30 PM Diagnosis Neoplasm related pain (acute) (chronic) Medications: Please continue your medications until treatment is completed or stopped by your provider. Discuss any questions related to medications with your provider. Medications to Continue Taking That Have Changed [facility][id number], [address], [place] [id number], [phone] - Oxycodone (oxyCODONE 5 mg oral tablet) 2 tab(s) Oral every 4 hours. increase due to increasing cancer pain. Refills: 0. Next Dose: Medications to Continue with No Changes [id number], [address] [place], [place] [id number], [phone] Ondansetron (ondansetron 4 mg oral tablet) 1 tab(s) Oral every 8 hours as needed Nausea & Vomiting. Refills: 0. Next Dose: These medications were not printed or sent to your pharmacy Acetaminophen (acetaminophen 325 mg oral tablet) 650 Milligram Oral every 4 hours as needed Pain , Mild. Temperature Greater than 100.5. Next Dose: Mirtazapine (mirtazapine 7.5 mg oral tablet) 1 tab(s) Oral Daily at Bedtime. Next Dose: Multivitamin With Minerals (Multivit Therapeutic/Minerals Tablet) 1 tab(s) Oral Daily. Next Dose: Nicotine (nicotine 14 mg/24 hr transdermal film, extended release) APPLY 1 PATCH TOPICALLY DAILY FOR 14 DAYS. NOT COVERED. Next Dose: Omeprazole (omeprazole 20 mg oral enteric coated capsule) TAKE 1 CAPSULE BY MOUTH EVERY DAY. Next Dose: Sucralfate (sucralfate 1 gm oral tablet) TAKE 1 TABLET BY MOUTH FOUR TIMES A DAY BEFORE MEALS &BEDTIME FOR 21 DAYS. Next Dose: Allergy Info:?? No Known Medication Allergies Medications Given This Visit Medication Dose Route Pembrolizumab (Pembrolizumab IVPB) 200 mg IVPB Future Orders ?CT Chest W/ Contrast? Order Date:02/08/23?- Complete by?03/11/23 Vital Signs Height 178 cm Weight 42.1 kg BMI 13.29 kg/m2 Blood Pressure 126 mm Hg/85 mm Hg Temperature 98.6 DegF Pulse Rate 109 bpm Respiratory Rate 02 Sat Mode of Delivery 100 %/Room air You can now view a summary of your hospital visit from the comfort of your home through a free online portal called [facility]. [employer] is a website that allows you to securely view your medical information including discharge summary, medications and follow-up visits. ??You can alsosend a secure electronic message to your doctor???s office to request appointments, renew medications or just ask a question. You can enroll at [email or web address] or register during your next office visit. Disclaimer:?? The information provided is of a general nature and is intended to be used in conjunction with the recommendations and advice of your health care practitioner. ??Every effort has been made to ensure that the information provided is accurate and complete at the time it is provided to you however, as your needs change, or, as new ??information becomes available, different or additional instructions may be required. If you have questions, please consult with your primary care provider or pharmacist, as appropriate. ??This information is not intended to serve as substitution for assessment and evaluation by a qualified health care provider. If you do not have a primary care provider, you may find a [facility] provider by calling [email or web address] at [phone]. For information about the plan of care including goals and instructions for your diagnosis, please see the patient education orders section of this document. Patient Education Materials?? The content of this educational material or handout may have been modified, supplemented, or adapted from its original content and format to support your individualized medical care. * Gladys Mauro: PERFORM, SIGN, VERIFY Event Display: Patient Education/Instruction Authored Date: [id number] [facility] *Heme/Onc Adult Clinical Summary Name TERI CLAUDIO Age 67 Years 1955 PCP Dilan CASTRO , Rohan Moreau PCP Visit Date 12/06/2022 08:28:00 Additional Instructions: Scheduled Appointments?? Future Appointments ?No Future Appointments Scheduled Follow-Up Instructions ?? With: Address: When: Logan Neri [address] [facility] for Cancer Care, [facility] [place] [address] Business (2) 01/27/2023 3:30 PM Diagnosis Medications: Please continue your medications until treatment is completed or stopped by your provider. Discuss any questions related to medications with your provider. Medications to Continue with No Changes These medications were not printed or sent to your pharmacy Acetaminophen (acetaminophen 325 mg oral tablet) 650 Milligram Oral every 4 hours as needed Pain , Mild. Temperature Greater than 100.5. Next Dose: Mirtazapine (mirtazapine 7.5 mg oral tablet) 1 tab(s) Oral Daily at Bedtime. Next Dose: Multivitamin With Minerals (Multivit Therapeutic/Minerals Tablet) 1 tab(s) Oral Daily. Next Dose: Nicotine (nicotine 14 mg/24 hr transdermal film, extended release) APPLY 1 PATCH TOPICALLY DAILY FOR 14 DAYS. NOT COVERED. Next Dose: Omeprazole (omeprazole 20 mg oral enteric coated capsule) TAKE 1 CAPSULE BY MOUTH EVERY DAY. Next Dose: Oxycodone (oxyCODONE 5 mg oral tablet) TAKE 1 TABLET BY MOUTH EVERY 6 HOURS NEEDED FOR PAIN FOR 7 DAYS. Next Dose: Sucralfate (sucralfate 1 gm oral tablet) TAKE 1 TABLET BY MOUTH FOUR TIMES A DAY BEFORE MEALS &BEDTIME FOR 21 DAYS. Next Dose: Allergy Info:?? No Known Medication Allergies Medications Given This Visit Future Orders ?No future orders Vital Signs Height 178 cm Weight 41.5 kg BMI 13.1 kg/m2 Blood Pressure 122 mm Hg/70 mm Hg Temperature 97.9 DegF Pulse Rate 91 bpm Respiratory Rate 02 Sat Mode of Delivery 100 %/Room air You can now view a summary of your hospital visit from the comfort of your home through a free online portal called [employer]. [employer] is a website that allows you to securely view your medical information including discharge summary, medications and follow-up visits. ??You can alsosend a secure electronic message to your doctor???s office to request appointments, renew medications or just ask a question. You can enroll at [email or web address] or register during your next office visit. Disclaimer:?? The information provided is of a general nature and is intended to be used in conjunction with the recommendations and advice of your health care practitioner. ??Every effort has been made to ensure that the information provided is accurate and complete at the time it is provided to you however, as your needs change, or, as new ??information becomes available, different or additional instructions may be required. If you have questions, please consult with your primary care provider or pharmacist, as appropriate. ??This information is not intended to serve as substitution for assessment and evaluation by a qualified health care provider. If you do not have a primary care provider, you may find a [facility] provider by calling [facility] Last Guide Link at [phone]. For information about the plan of care including goals and instructions for your diagnosis, please see the patient education orders section of this document. Patient Education Materials?? The content of this educational material or handout may have been modified, supplemented, or adapted from its original content and format to support your individualized medical care. Patient Care team information Care Team Personnel Name: Rohan Kong MD Position: [facility] Outreach Member Role: PCP Address: Address: [address] [place], [place] [address] Name: Светлана Ellis RN Position: [facility] Onco RN Member Role: Primary Care Nurse Name: Halle CASTRO, Logan Laguerre Position: [facility] Physician - Oncology Med Service: Hematology & Oncology Member Role: Attending Physician Address: Address: [address] [place] [address] for Cancer Care [facility] [place] [address]- Care Team Related Persons Name: WILLIAMS CLAUDIO Address: home [address] [place] [address] Name: EITAN ORNELAS
--- OUTSIDE RECORDS SUMMARY | 2024-04-05 12:43 | XMS_ITS | Continuity of Care Document ---
Author Organization [facility] ancer Care Address [address] [place] [address]- Care Team Providers Care Institutional Research Director Name Role Phone Dilan CASTRO, Rohan Moreau Primary Care Physician Encounter [facility] Date(s): 12/30/22 - 01/29/[address] [address]- Allergies, Adverse Reactions, Alerts No Known Medication [...] tablet, 0 Refills, Maintenance, 01/13/23 10:51:00 EDT, [facility]/pharmacy #[id number], Partial fill upon patient request if the prescription is for a schedule II opioid drug., 178, cm, 12/30/22... Start Date: 01/13/23 Status: Ordered oxyCODONE 5 mg oral tablet 10 mg, 2, tablet, By Mouth, Every 4 hours, PRN, increase due to increasing cancer pain, # 30 tablet, Refills 0, Tot. Refills 0, Maintenance, Pain , Severe, 01/27/23 16:19:00 EDT, Route to Pharmacy Electronically, [facility] #[id number], Partial f... Start Date: 01/27/23 Status: Ordered polyethylene glycol 3350 oral powder for reconstitution = 17 Gm, By Mouth, Daily, PRN Constipation, dissolve in water before taking, # 12 each, 0 Refills, Maintenance, 01/27/23 16:21:00 EDT, REC Powder, [facility] #[id number], Partial fill upon patient request if the [...] Team Personnel Name: Saba Tran RN Position: [facility] RN Member Role: Primary Care Nurse Name: Rohan Kong MD Position: [facility] Outreach Member Role: PCP Address: Address: [address] [place] [address] Care Team Related Persons Name: WILLIAMS CLAUDIO Address: home [address] [place] [id number] Name: EITAN ORNELAS
--- OUTSIDE RECORDS SUMMARY | 2024-04-05 12:43 | XMS_ITS | Continuity of Care Document ---
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 Care [address] [place] [id number] Allergies, Adverse Reactions, Alerts No [...] Acute 07/27/23 9:15:00 EST, 05/28/23 9:15:00 EST, [facility] #[id number], Partial fill upon patient request if the prescription is for a schedule II opio... Start Date: 05/28/23 Stop Date: 07/27/23 Status: Ordered gabapentin 100 mg oral capsule 100 mg, 1, capsule, By Mouth, 3 times a day, # 90 capsule, Refills 5, Tot. Refills 5, Maintenance, 03/11/23 10:50:00 EDT, Route to Pharmacy Electronically, [facility] #[id number], Partial fill upon patient request if the [...] 0 Refills, Maintenance, 01/13/23 10:51:00 EDT, [facility]/pharmacy #[id number], Partial fill upon patient request if the prescription is for a schedule II opioid drug., 178, cm, 12/30/22... Start Date: 01/13/23 Status: Ordered oxyCODONE 10 mg oral tablet 1 tablet = 10 mg, By Mouth, Every 4 hours, PRN as needed for pain, # 50 tablet, 0 Refills, Maintenance, 05/26/23 10:48:00 EST, Tablet, [facility] #[id number], Partial fill upon patient request if the prescription is for a schedule II opioid drug.... Start Date: 05/26/23 Status: Ordered polyethylene glycol 3350 oral powder for reconstitution = 17 Gm, By Mouth, Daily, PRN Constipation, dissolve in water before taking, # 12 each, 0 Refills, Maintenance, 01/27/23 16:21:00 EDT, REC Powder, [facility] #[id number], Partial fill upon patient request if the prescription is for a schedule II... Start Date: 01/27/23 Status: Ordered predniSONE 20 mg oral tablet See Instructions, 3 tablet By Mouth Daily with food or milk. Taper as directed by provider, # 60 tablet, 0 Refills, Maintenance, 05/13/23 11:43:00 EDT, Tablet, [facility] #[id number], Partial fill upon patient request if the [...] Name: Dilan CASTRO , Rohan Moreau Position: [facility] Outreach Member Role: PCP Address: Address: [address] [place] [address]- Name: Светлана Ellis RN Position: [facility] Onco RN Member Role: Primary Care Nurse Care Team Related Persons Name: WILLIAMS CLAUDIO Address: home [address] [place] [id number] Name: EITAN ORNELAS
--- OUTSIDE RECORDS SUMMARY | 2024-04-05 12:43 | XMS_ITS | Continuity of Care Document ---
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 Attending Physician: Ramin Walter Admitting Physician: AdmtrRamin Referring Physician: Admtr, Ar8 Allergies, Adverse Reactions, [...] tablet, Refills 0, Tot. Refills 0, Maintenance, 01/02/23 12:15:00 EDT, Route to Pharmacy Electronically, [facility]/pharmacy #[id number], Partial fill upon patient request if t... Start Date: 01/02/23 Status: Ordered sucralfate 1 gm oral tablet [...] Team Personnel Name: Saba Tran RN Position: [facility] RN Member Role: Primary Care Nurse Name: Rohan Kong MD Position: [facility] Outreach Member Role: PCP Address: Address: [address] [place] [address]- Care Team Related Persons Name: WILLIAMS CLAUDIO Address: home [address] [place] [address] Name: EITAN ORNELAS
--- OUTSIDE RECORDS SUMMARY | 2024-04-05 12:43 | XMS_ITS | Continuity of Care Document ---
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 Date(s): 09/25/23 - 10/25/23 [facility] Care [address] [place] [id number] Allergies, Adverse Reactions, Alerts No [...] capsule, 5 Refills, Maintenance, 10/21/23 17:53:00 EDT, [id number], Partial fill upon patient request if the prescription is fora schedule II opioid drug., 178, cm, 10/21/23 8:56:00 E... Start Date: 10/21/23 Status: Ordered gabapentin 100 mg oral capsule 100 mg, 1, capsule, By Mouth, 3 times a day, # 90 capsule, Refills 5, Tot. Refills 5, Maintenance, 06/10/23 18:14:00 EST, Route to Pharmacy Electronically, [facility] #[id number], Partial fill upon patient request if the [...] Date: 10/21/23 Stop Date: 11/04/23 Status: Ordered Problem List Condition Confirmation Course Effective Dates Status Health St [facility] Informant Tobacco abuse Confirmed Active Underweight Confirmed Active Social History Social History Type Response Smoking Status Former smoker, quit more than 30 days ago entered on: 10/21/23 Sex Patient Care team information Care Team Personnel Name: Rohan Kong MD Position: [facility] Outreach Member Role: PCP Address: Address: [address] [place] [address]- Name: Светлана Ellis RN Position: [facility] Onco RN Member Role: Primary Care Nurse Care Team Related Persons Name: WILLIAMS CLAUDIO Address: home [address] [place] [id number] Name: EITAN ORNELAS
--- OUTSIDE RECORDS SUMMARY | 2024-04-05 12:44 | XMS_ITS ---
Author Organization [facility] Address [address] [place] [address] Care Team Providers Care Manager Digital Ad Operations Name Role Phone Rohan Kong Primary Care Provider Unavailab Varun Nelson Jr Unavailable REASON FOR VISIT FYI Encounters Encounter Location Date Provider Diagnosis [facility] [address] [place] [address] 03/23/2024 Varun Coulter Jr PLAN OF TREATMENT No Information
--- OUTSIDE RECORDS SUMMARY | 2024-04-05 12:44 | XMS_ITS | Continuity of Care Document ---
Author Organization [facility] Address [address] [place] [address]- Care Team Providers Care Ophthalmic Surgeon Name Role Phone Rohan Kong MD Primary Care Physician Encounter [facility] Date(s): 08/14/23 - 12/21/23 [facility] Care [address] [place] [id number] Discharge Disposition: A-D/C Home Attending Physician: [...] pain, # 60 tablet, 0 Refills, Maintenance, 12/09/23 16:37:00 EDT, Tablet, [id number], Partial fill upon patient request if the prescription is for a schedule II opioid drug., 1... Start Date: 12/09/23 Status: Ordered Problem List Condition Confirmation Course Effective Dates Status Health [facility] Informant Tobacco abuse Confirmed Active Underweight Confirmed Active Vital Signs Most recent to oldest [Reference Range]: 1 2 Height 178 cm (10/21/23 8:56 AM) 178 cm (09/23/23 1:53 PM) Weight 42.9 kg (10/21/23 8:56 AM) 42.9 kg (09/23/23 1:53 PM) Oxygen Saturation [94-100 %] 98 % (10/21/23 8:56 AM) 99 % (09/23/23 1:53 PM) Pulse Rate [55-90 bpm] 73 bpm (10/21/23 8:56 AM) 109 bpm *H* (09/23/23 1:53 PM) Body Mass Index [18.5-24.99 kg/m2] 13.54 kg/m2 *L* (10/21/23 8:56 AM) 13.54 kg/m2 *L* (09/23/23 1:53 PM) Blood Pressure [90-138/55-84 mm Hg] 113/ 78mm Hg (10/21/23 8:56 AM) 101/81mm Hg (09/23/23 1:53 PM) Temperature [96.8-100.4 DegF] 97.8 DegF (10/21/23 8:56 AM) 96.8 DegF (09/23/23 1:53 PM) Mode of Delivery (Oxygen) Room air (10/21/23 8:56 AM) Room air (09/23/23 1:53 PM) Blood pressure sites Arm, left (10/21/23 8:56 AM) Arm, right (09/23/23 1:53 PM) Temperature Route Temporal (10/21/23 8:56 AM) Oral (09/23/23 1:53 PM) Dry Weight 42.9 kg (10/21/23 8:56 AM) 42.9 kg (09/23/23 1:53 PM) Weight Obtained Via Standing scale (10/21/23 8:56 AM) Standing scale (09/23/23 1:53 PM) Dry Weight Obtained Via Standing scale (10/21/23 8:56 AM) Standing scale (09/23/23 1:53 PM) Social History Social History Type Response Smoking Status Former smoker, quit more than 30 days ago entered on: 10/21/23 Sex Patient Care team information Care Team Personnel Name: Rohan Kong MD Position: [facility] Outreach Member Role: PCP Address: Address: [address] [place] [address]- Name: Светлана Ellis RN Position: [facility] Onco RN Member Role: Primary Care Nurse Name: Logan Neri MD Position: [facility] Physician - Oncology Med Service: Hematology & Oncology Member Role: Admitting Physician Address: Address: [address] [place] [address] [facility] [place] [address]- Care Team Related Persons Name: WILLIAMS CLAUDIO Address: home [address] [place] [address] Name: EITAN ORNELAS
--- OUTSIDE RECORDS SUMMARY | 2024-04-05 12:44 | XMS_ITS | Patient Health Record ---
Author Organization [facility] Address [address] [place] [address] Care Team Providers Care Pediatric Rn Name Role Phone Rohan Kong Primary Care Provider UnavailVarun Magaña Jr Unavailable [phone] ALLERGIES Allergen (clinical drug ingredient) Drug/Non Drug Allergy documented on EMR Reaction Allergy Type Onset Date Status hay fever (uncoded) Unknown Allergy Active REASON FOR REFERRAL No Information MEDICATIONS Medication SIG (Take, Route, Fr equency, Duration) Notes Start Date End Date Status Gabapentin 100 MG TAKE 1 CAPSULE BY MO UTH THREE TIMES DAILY Oral for 30 Active oxyCODONE HCl 10 MG TAKE ONE TABLET BY M OUTH EVERY 4 HOURS NEEDED FOR PAIN Oral for 8 Active Creon 99344-14169 UNIT Oral for 30 Active IMMUNIZATIONS Vaccine Route Administration Date Status Comme nts Influenza Unknown 10/01/2023 Refused SOCIAL HISTORY Tobacco Use: Social History Observation Description Date Details (start date - stop date) Former Smoker NA - NA Sex Assigned At : Social History Observation Description Sex Assigned At Unknown Tobacco Use/Smoking Question Answer Notes Patient is a former smoker Alcohol Screen Question Answer Notes Did you have a drink containing alcohol in the p ast year? No Points 0 Interpretation Negative PROBLEMS Problem Type ICD Code Onset Dates Problem Status W/U Status Risk SNOMED Code Notes Problem Elevated liver enzymes (R74.8) Active confirmed 717188020 Problem Pancreatic insufficiency (K86.89) Active confirmed 53761450 VITAL SIGNS Temperature 98.6 degrees Fahrenheit 10/01/2023 Blood pressure diastolic 00 mm Hg 10/01/2023 Height 5 ft 10 in in 10/01/2023 Blood pressure systolic 000 mm Hg 10/01/2023 Weight 95 lb 2 oz lbs 10/01/2023 BMI 13.65 kg/m2 10/01/2023 Encounters Encounter Location Date Provider Diagnosis [facility] [address] [place] [phone] 04/02/2024 Varun Coulter Jr [facility] [address] [place] [phone] 10/01/2023 Varun Coulter Jr Elevated liver enzymes R74.8 and Pancreatic insufficiency K86.89 [facility] [address] [place] [address] 03/23/2024 Varun Coulter Jr ASSESSMENTS Encounter Date Diagnosis Assessment Notes Treatment Notes Treatment Clinical Notes 10/01/2023 Elevated liver enzymes (ICD-10 - R74.8) Liver disease - resources material was printed 10/01/2023 Pancreatic insufficiency (ICD-10 - K86.89) PLAN OF TREATMENT No Information Insurance Providers Payer Name Payer Address Payer Phone Subscriber Number Group Number Insured Name Patient Relationship to Insured Coverage Start Date Coverage End Date [facility] [address] [place] [phone] [id number] GONZÁLEZ TERI Self - patient is the insured [facility]ID [facility] [address] [place] [phone] [id number] GONZÁLEZ, TERI Self - patient is the insured MEDICAL (GENERAL) HISTORY Medical History History ICD Code 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 Previous treatment stopped due to elevated liver function tests requiring immunosuppressive drugs. Status post XRT right lung and thoracic spine Surgical History Surgery Date(Month/Year) Hospitalization History Reason Date(Month/Year)
--- OUTSIDE RECORDS SUMMARY | 2024-04-05 12:44 | XMS_ITS ---
Author Organization [facility] Address [address] [place] [address] Care Team Providers Care Regroover Name Role Phone Rohan Kong Primary Care Provider UnavailVarun Magaña Jr Unavailable ALLERGIES Allergen (clinical drug ingredient) Drug/Non Drug Allergy documented on EMR Reaction Allergy Type Onset Date Status hay fever (uncoded) Unknown Allergy Active REASON FOR VISIT patient presents today for consultation MEDICATIONS Medication SIG (Take, Route, Fr equency, Duration) Notes Start Date End Date Status Gabapentin 100 MG TAKE 1 CAPSULE BY MO UTH THREE TIMES DAILY Oral for 30 Active oxyCODONE HCl 10 MG TAKE ONE TABLET BY M OUTH EVERY 4 HOURS NEEDED FOR PAIN Oral for 8 Active Creon 17028-41446 UNIT Oral for 30 Active IMMUNIZATIONS Vaccine [...] Problem Elevated liver enzymes (R74.8) Active confirmed [id number] Problem Pancreatic insufficiency (K86.89) Active confirmed [id number] VITAL SIGNS BMI 13.65 kg/m2 10/01/2023 Blood pressure systolic 000 mm Hg 10/01/19 24 Blood pressure diastolic 00 mm Hg 024 Height 5 ft 10 in in 10/01/2023 Temperature 98.6 degrees Fahrenheit 10/01/19 24 Weight 95 lb 2 oz lbs 10/01/2023 Encounters Encounter Location Date Provider Diagnosis [facility] [address] [place] [address] 10/01/2023 Varun Coulter Jr Elevated liver enzymes R74.8 and Pancreatic insufficiency K86.89 ASSESSMENTS Encounter Date Diagnosis Assessment Notes Treatment Notes Treatment Clinical Notes 10/01/2023 Elevated liver enzymes (ICD-10 - R74.8) Liver disease - resources material was printed 10/01/2023 Pancreatic insufficiency (ICD-10 - K86.89) PLAN OF TREATMENT Treatment Notes Assessment Notes Elevated liver enzymes Liver disease - r esources material was printed Next Appt Details Follow Up: 1 Year, 6 Months, Reason: Progress Notes * Examination Category Sub-Category Detail Notes General Examination GENERAL APPEARANCE: Cachexia is present HEAD: normocephalic EYES: sclera non-icteric NECK/THYROID: no lymphadenopathy HEART: S1, S2 normal, no mu rmurs CHEST: normal shape and exp ansion LUNGS: clear to auscultatio n bilaterally ABDOMEN: soft, nontender, non distended, bowel sounds present, no organomegaly SKIN: anicteric EXTREMITIES: no clubbing, cyanosi s, or edema PSYCH: cognitive function i ntact ORAL CAVITY: mucosa moist
--- OUTSIDE RECORDS SUMMARY | 2024-04-05 12:44 | XMS_ITS ---
Author Organization [facility] Address [address] [place] [phone] Care Team Providers Care Software Computer Specialist Name Role Phone Rohan Kong Primary Care Provider Unavailab Varun Nelson Jr Unavailable REASON FOR VISIT Patient presents today for abdominal pain Encounters Encounter Location Date Provider Diagnosis [facility] [address] [place] [phone] 04/02/2024 Varun Coulter Jr PLAN OF TREATMENT No Information
--- NOTE | 2024-04-05 13:07 | MHC.OFFWIV ---
Intake Vital Signs 04/05/24 13:15 Weight 95 lb 4 oz BP 110/68 Blood Pressure Location Lt brachial Position Sitting Respiration 16 Pulse 104 H Pulse Source Pulse Oximeter Temp 98.0 F Temp Source Oral Pulse Oximetry (%) 95 Oxygen Delivery Method Room Air Intake Visit Reasons: grease burn on right arm Intake Note: patient here for grease burn on right arm Patient Tobacco Use Status: Former Tobacco user Photographic Press Screwmaker Required: No Allergies No Known Allergies Allergy (Verified 04/05/24 13:34) Medication List - Last Reconciled 04/05/24 by Damon Hartley CNP gabapentin 100 mg PO BEDTIME axxxin-lcslelsf-dypanah 12,000-38,000 -60,000 unit (Creon) 1 cap PO TID oxycodone 10 mg PO DAILY PRN Do you need a note to return to daycare/school/sports/work: No HPI HPI Comments History of Present Illness Details 68-year-old male presents with complaints of a painful burn to his right arm. He notes that he was frying on the frying pain when grease from the pain splash on his right arm. Some blisters developed. He applied Vaseline to the burn for a few days and then started using bacitracin. [facility] Medical History Back pain Irregular heartbeat Scoliosis Hypertension Surgical History No pertinent past surgical history Family History Mother Diabetes Father Colon cancer Bladder cancer Social History Housing: Apartment Alcohol intake: unknown Patient Tobacco Use Status: Former Tobacco user Tobacco use type: Cigarette Cigarettes Per Day: 3 Years Smoked: 50 e-Cigarette/Vaping Use: Never Used service: No Current occupational status: retired Cognitive needs: No Hearing needs: No Vision needs: No Review of Systems Const Details: Const Denies chills, Denies fatigue, Denies fever(s), Denies headache(s) and Denies weakness ENT Denies change in vision, Denies dizziness, Denies headache(s), Denies hearing loss, Denies nasal congestion, Denies sinus pain, Denies sinus pressure and Denies sore throat Resp Denies cough, Denies dyspnea, Denies wheezing and Denies other (shortness of breath) Cardio Denies chest pain, Denies lightheadedness, Denies dyspnea and Denies other (palpitations) Neuro Denies dizziness, Denies headache(s), Denies numbness, Denies tingling and Denies weakness Skin Reports as per HPI Endo Denies fatigue Aller/Immun Denies wheezing Physical Exam Const Other: Const General: well developed; No acute distress Nutritional Appearance: well nourished Orientation/consciousness: patient oriented x3 HEENT Head: Yes normocephalic and Yes atraumatic Eyes General: appearance normal, both eyes and all related structures Pupils: Equal, round and reactive pupils present EOM: EOMs intact bilaterally Resp Effort & Inspection: normal respiratory effort Auscultation: clear to auscultation bilaterally Cardio Rate: regular rate Rhythm: regular rhythm Heart sounds: S1 normal heart sound present, S2 normal heart sound present, no gallops, no murmurs and no rubs Bruits: no abdominal aortic bruits and no carotid bruits Neuro General: patient oriented x3 and gait normal, no focal neuro deficit Cranial nerves: Yes Equal, round and reactive pupils present Skin Multiple small, intact blisters noted to his right upper and lower arm; 2 pea-sized blisters noted to the right upper arm and lower arm; no open wounds or drainage; no overt infection Psych Affect: normal affect Assessment & Plan Assessment & Plan (1) Burn: Code(s): T30.0 - Burn of unspecified body region, unspecified degree Plan: Presents with an oil burn to his right forearm which happened about a week ago Multiple small, intact blisters noted to his right upper and lower arm; 2 pea-sized blisters noted to the right upper arm and lower arm; no open wounds or drainage; no overt infection Advised to keep the blisters intact. May apply nonadherent gauze or Band-Aid 2 blisters If blister spontaneously open, encouraged to clean wound with water, pat dry, and apply Neosporin twice daily Avoid applying Vaseline to the burn May take Tylenol ibuprofen for pain or discomfort Follow-up with worsening or new signs and symptoms Verbalized understanding and agreed with the treatment plan Coding Level of Care Code Est Pt Level 3 (08674) Diagnoses Burn T30.0
[2024-04-05 13:15] VITALS: BP 110/68; PULSE 104; RESP 16; TEMP 36.7; O2SAT 95
== END 2024-04-05 13:56 | disposition home or self-care (01) ==
PROVIDERS: PCP Family Medicine; Visit Provider Nurse Practitioner Family
DX: T22.111A Burn of first degree of right forearm, initial encounter (principal)

== ENCOUNTER → 2024-04-05 12:40 | Outpatient (BNVA) | payer OTHER, SELFPAY | PROVIDERS: PCP Family Medicine | DX: T22.011A Burn of unspecified degree of right forearm, initial encounter (principal); T31.0 Burns involving less than 10% of body surface; X08.8XXA Exposure to other specified smoke, fire and flames, initial encounter; Y93.G3 Activity, cooking and baking; Y92.000 Kitchen of unspecified non-institutional (private) residence as the place of occurrence of the external cause; Y99.9 Unspecified external cause status | CPT/HCPCS: 99212 ==

== ENCOUNTER 2024-04-20 09:44 | Outpatient (AMB) | payer OTHER, SELFPAY ==
--- NOTE | 2024-04-20 10:03 | A.OFFVIS_ITS ---
Intake Vital Signs 04/20/24 10:08 Height 5 ft 10 in Weight 96 lb 4 oz BMI 13.8 BP 98/64 Blood Pressure Location Lt brachial Position Sitting Respiration 13 Pulse 76 Pulse Source Pulse Oximeter Pulse Oximetry (%) 99 Oxygen Delivery Method Room Air Intake Visit Reasons: CPE with f/u labs and health maint. Intake Note: physical Allergies No Known Allergies Allergy (Verified 04/20/24 10:31) Medication List - Last Reconciled 04/20/24 by Angi Blue, SYSTEM OPERATION SUPERINTENDENT-BC gabapentin 100 mg PO BEDTIME eibdfh-phascqcf-quhhohx 12,000-38,000 -60,000 unit (Creon) 1 cap PO TID oxycodone 10 mg PO DAILY PRN Do you need a note to return to daycare/school/sports/work: No HPI HPI Comments 2 History of Present Illness Details Here today for AWV. The Medicare Annual Wellness Visit (AWV) is a yearly appointment with a health professional to identify health risks and help reduce them and to create or update a personalized prevention plan. During a Medicare AWV, health professionals should also review any current opioid prescriptions, detect any cognitive impairment, and establish or update medical and family history. 68 y/o M with COPD, JOAQUIN, aortic stenosis , underweight, former smoker, pancoast tumor R lung (metastatic adenocarcinoma of R lung 09/23/23 ), prediabetes SurgHx: none FHx: Dad: Bladder & Colon CA. Mom: Diabetes. SocHx: Smokes 1/2 ppd 10 cigarettes x 50 years. EtOH none. No drugs. [place] of Care: See scanned preventative medicine assessment with personalized health plan and screening schedule. GI [facility] [place] [facility] Maintenance: See scanned preventative medicine assessment with personalized health plan and screening schedule Colon declined @ this time Tdap 2014 Flu, Shingles, PCV declined at this time Labs 01/19/24 Visual Acuity: completed Hearing Screening: WNL Currently has shingles. ED visit at [facility] reviewed 03/2024. Affecting R upper arm. completed Valacylovir. Did have consult / [facility]. Rash resolving. Denies pain. Wants to hold off on any vaccines or screenings such as colonoscopy until after he is recovered from his shingles To help his weight, which is stable, Using breakfast essentials and ensure, has MOW. During the course of the visit the patient was educated and counseled about appropriate screening and preventative services. Patient instructions were provided to the patient in written or electronic format. I have reviewed and verified the above information. Plan Cont all meds cont care w/ [place] of care FU with PCP in 3 months for routine fu, sooner PRN This note is constructed using voice recognition software. While every effort has been made to ensure accuracy in it business analyst, still errors may have been included Sometimes, these errors may affect the content or meaning of the given sentence . An additional 20 was spent addressing the problem(s) noted at todays visit. This includes time spent before the visit reviewing the chart, time spent during the visit, and time spent after the visit on documentation PFSH Medical History Back pain Irregular heartbeat Scoliosis Hypertension Surgical History No pertinent past surgical history Family History Mother Diabetes Father Colon cancer Bladder cancer Social History Housing: Apartment Alcohol intake: unknown Patient Tobacco Use Status: Former Tobacco user Tobacco use type: Cigarette Cigarettes Per Day: 3 Years Smoked: 50 e-Cigarette/Vaping Use: Never Used service: No Current occupational status: retired Cognitive needs: No Hearing needs: No Vision needs: No Questionnaire Medicare Wellness Checkup What is your age?: 65-69 What gender do you identify with?: male During the past 4 weeks, how much have you been bothered by emotional problems such as feeling anxious, depressed, irritable, sad or downhearted, and blue?: not at all During the past 4 weeks, has your physical & emotional health limited your social activities with family, friends, neighbors, or groups?: not at all During the past 4 weeks, how much bodily pain have you generally had?: no pain During the past 4 weeks, was someone available to help you if you needed & wanted help?: yes, as much as I wanted During the past 4 weeks, what was the hardest physical activity you could do for at least 2 minutes?: light Can you get to places out of walking distance without help? (For eg., can you travel alone on buses, taxis or drive your car?): Yes Can you go shopping for groceries or clothes without someone's help?: Yes Can you prepare your own meals?: Yes Can you do your housework without help?: Yes Because of any health problems, do you need the help of another person with your personal care needs such as eating, bathing, dressing or getting around the house?: No Can you handle your own money without help?: Yes During the past 4 weeks, how would you rate your health in general?: fair During the past 4 weeks how have things been going for you?: pretty well Are you having difficulties driving your car?: no Do you always fasten your seat belt when you are in a car?: yes, usually During past 4 weeks, have you been bothered by the following: never: Falling or dizzy when standing up, Sexual problems?, Trouble eating well?, Teeth or denture problems?, Problems using the telephone? and Tiredness or fatigue? Have you fallen 2 or more times in the past year?: No Are you afraid of falling?: No Are you a smoker?: no During the past 4 weeks, how many drinks of wine, beer, or other alcoholic beverages did you have?: 1 drink or less per week Do you exercise for about 20 minutes 3 or more times a week?: yes, some of the time Have you been given information to help with the following?: no: Hazards in your house that might hurt you? and no: Keeping track of your medications? How often do you have trouble taking medicines the way you have been told to take them?: I always take medicine as prescribed How confident are you that you can control & manage most of your health problems?: very confident What is your race?: White Activity of Daily Living Bathing - sponge bath, tub bath or shower: receives no assistance (gets in/out by self, if usual bathing means Dressing - getting clothes from closets & drawers, including inner/outer garments & fasteners.: gets clothes & gets completely dressed without help Toileting - going to the 'toilet room' for urine/bowel elimination & cleaning self/arranging clothes: goes to toilet room, cleans self, arranges clothes without help Transfer: moves in & out of bed and chair without help (may use support object) Continence: controls urination/bowel movements completely by self Feeding: feeds self without help Total Score: 0 Information obtained from: patient Using telephone: independent Traveling: independent Shopping: independent Preparing meals: independent Housework: independent Taking medicine: independent Managing money: independent PHQ-9 Over the last 2 weeks, how often have you been bothered by any of the following problems? 1. Little interest or pleasure in doing things: not at all 2. Feeling down, depressed, or hopeless: not at all 3. Trouble falling or staying asleep, or sleeping too much: not at all 4. Feeling tired or having little energy: not at all 5. Poor appetite or overeating: not at all 6. Feeling bad about yourself - or that you are a failure or have let yourself or your family down: not at all 7. Trouble concentrating on things, such as reading the newspaper or watching television: not at all 8. Moving or speaking so slowly that other people could have noticed. Or the opposite - being so fidgety or restless that you have been moving around a lot more than usual: not at all 9. Thoughts that you would be better off or of hurting yourself in some way: not at all Total score: 0 Depression Screening Interpretation: Negative Depression Screening Done: Yes 58876 - PHQ-9 Billing: Yes Source: Developed by Drs. Chito Rodríguez, Angeles Chen, Aayush Lamas and colleagues, with an educational alex from [employer]. Physical Exam Vital Signs: Last Vital Signs Pulse 76 04/20/24 10:08 Resp 13 04/20/24 10:08 BP 98/64 04/20/24 10:08 Pulse Ox 99 04/20/24 10:08 Oxygen Delivery Method Room Air 04/20/24 10:08 BMI result Body Mass Index 13.8 Const Other: awake alert chronically ill appearing, cachectic RRR, 2/6 murmur LS dim throughout Right upper arm scabbing/healing shingles from his thumb to his deltoid, no secondary infection Mood and affect appropriate Office Procedures Vision Screening Right Eye: 20/20 Left Eye: 20/20 Bilateral: 20/20 Color: Pass Corrected: Pass (with glasses) 73356 - Vision Screening Results AMB Hemoglobin A1c AMB Hemoglobin A1c 6.6 % Last Edit by Thai Velasquez MA on 04/20/24 10:30 Results Reviewed Results Reviewed: Laboratory Last Values Hgb A1c (Clinic) 6.6 % (4.0-6.0) H 04/20/24 10:28 Assessment & Plan Assessment & Plan (1) Screening for diabetes mellitus: Code(s): Z13.1 - Encounter for screening for diabetes mellitus Plan: . (2) Aortic stenosis: Code(s): I35.0 - Nonrheumatic aortic (valve) stenosis Qualifiers: Cardiac valve disease etiology: nonrheumatic Qualified Code(s): I35.0 - Nonrheumatic aortic (valve) stenosis Plan: . (3) Shingles: Code(s): B02.9 - Zoster without complications Qualifiers: Herpes zoster complications: without complications Qualified Code(s): B02.9 - Zoster without complications Plan: . (4) Adenocarcinoma of right lung: Code(s): C34.91 - Malignant neoplasm of unspecified part of right bronchus or lung Plan: . (5) Prediabetes: Code(s): R73.03 - Prediabetes Plan: . (6) ACP (advance care planning): Code(s): Z71.89 - Other specified counseling (7) Mild cognitive impairment: Code(s): G31.84 - Mild cognitive impairment of uncertain or unknown etiology Plan . Orders: Orders AMB Hemoglobin A1c Today Z13.1 - Encounter for screening for diabetes mellitus, Z13.9 - Encounter for screening, unspecified Patient Instructions: Health screenings for men ages 40 to 64 You should visit your health care provider regularly, even if you feel healthy. The purpose of these visits is to: Screen for medical issues Assess your risk for future medical problems Encourage a healthy lifestyle Update vaccinations and other preventive care services Help you get to know your provider in case of an illness Information Even if you feel fine, you should still see your provider for regular checkups. These visits can help you avoid problems in the future. For example, the only way to find out if you have high blood pressure is to have it checked regularly. High blood sugar and high cholesterol level also may not have any symptoms in the early stages. Simple blood tests can check for these conditions. There are specific times when you should see your provider or receive specific health screenings. The [place] Preventive Services Task Force publishes a list of recommended screenings. Below are screening guidelines for men ages 40 to 64. BLOOD PRESSURE SCREENING Have your blood pressure checked at least once every year. Watch for blood pressure screenings in your area. Ask your provider if you can stop in to have your blood pressure checked. Ask your provider if you need your blood pressure checked more often if: You have diabetes, heart disease, kidney problems, or are overweight or have certain other health conditions You have a first-degree relative with high blood pressure You are Black Your blood pressure top number is from 120 to 129 mm Hg, or the bottom number is from 70 to 79 mm Hg If the top number is 130 mm Hg or greater or the bottom number is 80 mm Hg or greater, this is considered stage 1 hypertension. Schedule an appointment with your provider to learn how you can lower your blood pressure. Effects of age on blood pressure CHOLESTEROL SCREENING Cholesterol screening should begin at age 35 for men with no known risk factors for coronary heart disease. Repeat cholesterol screening should take place: Every 5 years for men with normal cholesterol levels More often if changes occur in lifestyle (including weight gain and diet) More often if you have diabetes, heart disease, kidney problems, or certain other conditions COLORECTAL CANCER SCREENING If you are under age 45, talk to your provider about getting screened. You may need to be screened if you have a strong family history of colon cancer or polyps. Screening may also be considered if you have risk factors such as a history of inflammatory bowel disease or polyps. If you are age 45 to 75, you should be screened for colorectal cancer. There are several screening tests available: A stool-based fecal occult blood (gFOBT) or fecal immunochemical test (FIT) every year A stool sDNA test every 1 to 3 years Flexible sigmoidoscopy every 5 years or every 10 years with stool testing FIT done every year CT colonography (virtual colonoscopy) every 5 years Colonoscopy every 10 years You may need a colonoscopy more often if you have risk factors for colorectal cancer, such as: Ulcerative colitis A personal or family history of colorectal cancer A history of growths in your colon called adenomatous polyps DENTAL EXAM Go to the dentist once or twice every year for an exam and cleaning. Your dentist will evaluate if you have a need for more frequent visits. DIABETES SCREENING All adults who do not have risk factors for diabetes should be screened starting at age 35 and repeated every 3 years. If you have other risk factors for diabetes, such as a first degree relative with diabetes, overweight or obesity, high blood pressure, prediabetes, or a history of heart disease, you may be tested more often. If you are overweight and have other risk factors, such as high blood pressure and are planning to become , screening is recommended. EYE EXAM Have an eye exam every 2 to 4 years ages 40 to 54 and every 1 to 3 years ages 55 to 64. Your provider may recommend more frequent eye exams if you have vision problems or glaucoma risk. Have an eye exam that includes an examination of your retina (back of your eye) at least every year if you have diabetes. IMMUNIZATIONS Commonly needed vaccines include: Flu shot: get one every year COVID-19 vaccine: ask your provider what is best for you Tetanus-diphtheria and acellular pertussis (Tdap) vaccine: have as one of your tetanus-diphtheria vaccines if you did not receive it as an adolescent Tetanus-diphtheria: have a booster (or Tdap) every 10 years Varicella vaccine: receive 2 doses if you never had chickenpox or the varicella vaccine and were born in 1979 or after Hepatitis B vaccine: receive 2, 3, or 4 doses, depending on your exact circumstances, if you did not receive these as a child or adolescent, until age 59 Shingles (herpes zoster) vaccine: at or after age 50 Ask your provider if you should receive other immunizations, especially if you have certain medical conditions, such as diabetes or are at increased risk for some diseases such as pneumonia. INFECTIOUS DISEASE SCREENING Screening for hepatitis C: all adults ages 18 to 79 should get a one-time test for hepatitis C. Screening for human immunodeficiency virus (HIV): all people ages 15 to 65 should get a one-time test for HIV. Depending on your lifestyle and medical history, you may need to be screened for infections such as syphilis, chlamydia, and other infections. LUNG CANCER SCREENING You should have an annual screening for lung cancer with low-dose computed tomography (LDCT) if: You are age 50 to 80 years AND You have a 20 pack-year smoking history AND You currently smoke or have quit within the past 15 years OSTEOPOROSIS SCREENING If you are age 50 to 64 and have risk factors for osteoporosis, you should discuss screening with your provider. Risk factors can include long-term steroid use, low body weight, smoking, heavy alcohol use, having a fracture after age 50, or a family history of hip fracture or osteoporosis. Osteoporosis PHYSICAL EXAM All adults should visit their provider from time to time, even if they are healthy. The purpose of these visits is to: Screen for diseases Assess risk of future medical problems Encourage a healthy lifestyle Update vaccinations and other preventive care services Maintain a relationship with a provider in case of an illness Your height, weight, and body mass index (BMI) should be checked at every exam. During your exam, your provider may ask you about: Depression and anxiety Diet and exercise Alcohol and tobacco use Safety, such as use of seat belts and smoke detectors Your medicines and risk for interactions PROSTATE CANCER SCREENING If you're 55 through 69 years old, before having the test, talk to your provider about the pros and cons of having a PSA test. Ask about: Whether screening decreases your chance of dying from prostate cancer. Whether there is any harm from prostate cancer screening, such as side effects from testing or overtreatment of cancer when discovered. Whether you have a higher risk of prostate cancer than others. If you are age 55 or younger, screening is not generally recommended. You should talk with your provider about if you have a higher risk for prostate cancer. Risk factors include: Having a family history of prostate cancer (especially a brother or father) Being If you choose to be tested, the PSA blood test is repeated over time (yearly or less often), though the best frequency is not known. Prostate examinations are no longer routinely done on men with no symptoms. Prostate cancer SKIN EXAM Your provider may check your skin for signs of skin cancer, especially if you're at high risk. People at high risk include those who have had skin cancer before, have close relatives with skin cancer, or have a weakened immune system. TESTICULAR EXAM The [place] Preventive Services Task Force (USPSTF) now recommends against performing testicular self-exams. Doing testicular self-exams has been shown to have little to no benefit. 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 Depression screening performed: Yes Screen Results: Yes Negative screen Systolic BP not done?: Yes Diastolic BP not done?: Yes BMI screening not done: No BMI Low - Follow Up: Yes Low-plan (ensure, high calorie supplements) Sexual Activity Screening ([facility] 153) Sexually active?: No Immunizations (CMS 147, 117) Annual Influenza Vaccine: No Flu Vaccine not done: patient reason Measles Antibody Test: No Mumps Antibody Test: No Rubella Antibody Test: No Varicella Antibody Test: No Anti Hepatitis A IgG Antigen test: No Anti Hepatitis B Virus Surface Ab test: No Fall Risk Screening (CMS 139) Last assessed Fall Risk: 04/20/24 Fall risk assessment: No Falls in past year Dementia Assessment ([facility] 149) Cognitive assessment recorded: Yes (03/10 abnormal ) Assessment of cognition with standardized tool: Yes Depression/Bipolar (159/160/161/177) PHQ-9: Total score: 0 Suicide risk assessment performed: Yes Psychotherapy: No Oncology: Pain Intensity (CMS 157) Pain assessed w/ scale: Yes Ophthalmol:Cataracts Visual Acuity (133) Visual acuity exam performed: Yes (see below ) Coding Level of Care Code Medicare Subsequent (G0439) Diagnoses Screening for diabetes mellitus Z13.1 Nonrheumatic aortic valve stenosis I35.0 Cardiac valve disease etiology: nonrheumatic Herpes zoster without complication B02.9 Herpes zoster complications: without complications Adenocarcinoma of right lung C34.91 Prediabetes R73.03 ACP (advance care planning) Z71.89 Mild cognitive impairment G31.84 CPT Codes Advance Care Planning - Time spent: 1-15 minutes, not on file ([id number]) Vision Screening - Vision Screenin - Vision Screening ([id number]) Advance Care Planning Advance Care Planning discussion: Exists, not on file Date of discussion: 04/20/24 Who was present: self Forms completed: Health Care Proxy, MOLST and Living will Time spent: 1-15 minutes, not on file Actual minutes spent: 5 Did not discuss due to Cultural/Spiritual beliefs: Yes
[2024-04-20 10:08] VITALS: BP 98/64; PULSE 76; RESP 13; O2SAT 99; BMI 13.8
== END 2024-04-20 10:54 | disposition home or self-care (01) ==
PROVIDERS: PCP Family Medicine; Visit Provider Nurse Practitioner Family
DX: Z00.00 Encounter for general adult medical examination without abnormal findings (principal); R73.03 Prediabetes; C34.91 Malignant neoplasm of unspecified part of right bronchus or lung; I35.0 Nonrheumatic aortic (valve) stenosis; B02.9 Zoster without complications; G31.84 Mild cognitive impairment of uncertain or unknown etiology; Z01.00 Encounter for examination of eyes and vision without abnormal findings

== ENCOUNTER → 2024-04-20 09:44 | Outpatient (BNVA) | payer OTHER, SELFPAY | PROVIDERS: PCP Family Medicine; Visit Provider Nurse Practitioner Family | DX: I35.0 Nonrheumatic aortic (valve) stenosis (principal); B02.9 Zoster without complications; C34.91 Malignant neoplasm of unspecified part of right bronchus or lung; R73.03 Prediabetes; G31.84 Mild cognitive impairment of uncertain or unknown etiology; Z71.89 Other specified counseling | CPT/HCPCS: 83036; 99212 ==

== ENCOUNTER 2024-08-04 11:36 | Outpatient (AMB) | payer OTHER, SELFPAY ==
--- NOTE | 2024-08-04 11:43 | MHC.PC.OV ---
Vital Signs 08/04/24 11:50 Height 5 ft 10 in Weight 95 lb 8 oz BMI 13.7 BP 116/70 Blood Pressure Location Lt brachial Position Sitting Respiration 12 Pulse 41 L Pulse Source Pulse Oximeter Temp 98.1 F Temp Source Oral Pulse Oximetry (%) 96 Oxygen Delivery Method Room Air Intake Visit Reasons: [address] Rivas, 30 min routine fu complex cond Intake Note: dm follow up Allergies No Known Allergies Allergy (Verified 08/04/24 11:50) Medication List - Last Reconciled 08/04/24 by oRhan Kong MD gabapentin 100 mg PO BEDTIME [id number]-[id number]-fbftihn 12,000-38,000 -60,000 unit (Creon) 1 cap PO TID oxycodone 10 mg PO DAILY PRN Tobacco use date assessed: 10/16/23 Dental Screening Dental Screen Date: 08/14/23 HPI [address] Rivas, 30 min routine fu complex cond HPI Details 69 y/o male presents to f/u chronic conditions. Ongoing underweight status. Hx of adenocarcinoma of R lung. He notes breathing has been fine. A1c today 5.7%. [facility] Medical History Back pain Irregular heartbeat Scoliosis Hypertension Surgical History No pertinent past surgical history Family History Mother Diabetes Father Colon cancer Bladder cancer Social History Housing: Apartment Alcohol intake: unknown Patient Tobacco Use Status: Former Tobacco user Tobacco use type: Cigarette Cigarettes Per Day: 3 Years Smoked: 50 e-Cigarette/Vaping Use: Never Used service: No Current occupational status: retired Cognitive needs: No Hearing needs: No Vision needs: No Questionnaire Thrive Questionnaire Date Thrive assessed: 07/28/24 I am a: Patient What is your living situation today?: I have a steady place to live Within the past 12 months, did the food you bought not last and you didn't have the money to get more?: Never true Within the past 12 months, did you worry whether your food would run out before you got money to buy more?: Never true Do you have trouble paying for medicines?: No Do you have trouble getting transportation to medical appointments?: No Do you have trouble paying your heating and electricity bill?: No Do you have trouble taking care of your child, family member or friend?: No Do you have trouble with day-to-day activities such as bathing, preparing meals, shopping, managing finances, etc.?: No Are you currently unemployed and looking for a job?: I choose not to answer this question Are you interested in more education?: No Please select the resources that you would like help with: None Currently or been in a relationship where the following occur: I choose not to answer THRIVE Score: 0 AUDIT C Alcohol Use Questionnaire (AUDIT-C) 1. How often do you have a drink containing alcohol?: Never Total Score: 0 JOAQUIN-7 AMB Questionnaire JOAQUIN-7 Date JOAQUIN - 7 assessed: 01/22/24 Feeling nervous, anxious, or on edge: 0 = Not at all Not being able to stop or control worryin = Not at all Worrying too much about different things: 0 = Not at all Trouble relaxin = Not at all Being so restless that it is hard to sit still: 0 = Not at all Becoming easily annoyed or irritable: 0 = Not at all Feeling afraid as if something awful might happen: 0 = Not at all Total JOAQUIN-7 score (0-4 normal; 5-9 mild; 10-14 moderate; 15-21 severe): 0 Source: Developed by Drs. Chito Rodríguez, Angeles Chen, Aayush Lamas and colleagues, with an educational alex from [employer]. Review of Systems Const Denies chills, Denies fatigue, Denies fever(s), Denies headache(s) and Denies weakness ENT Denies dizziness and Denies headache(s) Card Denies dyspnea Resp Denies cough, Denies dyspnea, Denies wheezing and Denies other (shortness of breath) Musc Denies numbness and Denies tingling Neuro Denies dizziness, Denies headache(s), Denies numbness, Denies tingling and Denies weakness Psych Denies anxiety and Denies depression Endo Denies fatigue Aller/Immun Denies wheezing Physical exam (Primary Care) Tobacco/Smoking Status: Tobacco use Status Tobacco use date assessed 10/16/23 08/04/24 11:43 Patient Tobacco Use Status Former Tobacco user 08/04/24 11:43 Tobacco use type Cigarette 08/04/24 11:43 e-Cigarette/Vaping Use Never Used 08/04/24 11:43 Thrive Assessment: Date of Thrive Assessment Date Thrive assessed 07/28/24 08/04/24 11:43 Currently or been in a relationship where the following occur: I choose not to answer Const General: well developed; No acute distress Nutritional Appearance: underweight Orientation/consciousness: patient oriented x3 HENMT Head: Yes normocephalic and Yes atraumatic Eyes General: appearance normal, both eyes and all related structures Pupils: Equal, round and reactive pupils present EOM: EOMs intact bilaterally Resp Effort & Inspection: normal respiratory effort Cardio Heart sounds: Murmur heart sound present (Loud systolic murmur, unchanged) systolic Neuro General: patient oriented x3 and gait normal Cranial nerves: Yes Equal, round and reactive pupils present Psych Affect: normal affect Coding Level of Care Code Est Pt Level 4 (55700) Diagnoses Prediabetes R73.03 Underweight R63.6 Weight loss R63.4 Adenocarcinoma of right lung C34.91 Assessment & Plan Assessment & Plan (1) Prediabetes: Code(s): R73.03 - Prediabetes Category: Medical Plan: A1c?5.7%. Will?continue?to?monitor. (2) Underweight: Code(s): R63.6 - Underweight Category: Medical Plan: Patient?remains?severely?underweight?and?has?not?gained?back?much?lately. Encouraged?increased?calories Can?add?sauces?dips?and?gravies?to?food?to?improve?taste?in?calories. Will?continue?to?monitor. (3) Weight loss: Comment: Abnormal, question etiology Code(s): R63.4 - Abnormal weight loss Category: Medical Plan: as above, patient?had?severe?weight?loss.??This?has?leveled?out?but?he?has?not?gained?back?weight (4) Adenocarcinoma of right lung: Code(s): C34.91 - Malignant neoplasm of unspecified part of right bronchus or lung Category: Medical Plan: Followed?by? Has?follow-up?CT?scan?September
[2024-08-04 11:50] VITALS: BP 116/70; PULSE 41; RESP 12; TEMP 36.7; O2SAT 96; BMI 13.7
--- OUTSIDE RECORDS SUMMARY | 2024-08-04 13:20 | XMS_ITS ---
Author Organization [facility] Address [address] [place] [address] Care Team Providers Care Solar Installer Pv Name Role Phone Rohan Kong Primary Care [...] FOR PAIN Oral for 8 Active Creon 00664-23924 UNIT Oral for 30 Active IMMUNIZATIONS Vaccine [...] Problem Elevated liver enzymes (R74.8) Active confirmed [id number] Problem Pancreatic insufficiency (K86.89) Active confirmed [id number] VITAL SIGNS BMI 13.65 kg/m2 10/01/2023 Blood pressure systolic 000 mm Hg 10/01/19 24 Blood pressure diastolic 00 mm Hg 024 Height 5 ft 10 in in 10/01/2023 Temperature 98.6 degrees Fahrenheit 10/01/19 24 Weight 95 lb 2 oz lbs 10/01/2023 Encounters Encounter Location Date Provider Diagnosis [facility] [address] [place] [address] 10/01/2023 Varun Coulter Jr Elevated liver enzymes [...]
--- OUTSIDE RECORDS SUMMARY | 2024-08-04 13:20 | XMS_ITS ---
Author Organization [facility] Address [address] [place] [phone] Care Team Providers Care Food Aide Name Role Phone Rohan Kong Primary Care Provider Unavailab Varun Nelson Jr Unavailable [phone] REASON FOR VISIT Patient presents today for abdominal pain Encounters Encounter Location Date Provider Diagnosis [facility] [address] [place] [phone] 04/02/2024 Varun Coulter Jr PLAN OF TREATMENT No Information
--- OUTSIDE RECORDS SUMMARY | 2024-08-04 13:20 | XMS_ITS ---
Author Organization [facility] Address [address] [place] [phone] Care Team Providers Care Family Development Specialist Name Role Phone Rohan Kong Primary Care Provider Unavailab Varun Nelson Jr Unavailable REASON FOR VISIT FYI Encounters Encounter Location Date Provider Diagnosis [facility] [address] [place] [address] 03/23/2024 Varun Coulter Jr PLAN OF TREATMENT No Information
--- OUTSIDE RECORDS SUMMARY | 2024-08-04 13:21 | XMS_ITS | Patient Health Record ---
Author Organization [facility] Address [address] [place] [address] Care Team Providers Care Director Of Education Name Role Phone Rohan Kong Primary Care [...] FOR PAIN Oral for 8 Active Creon 71736-02860 UNIT Oral for 30 Active IMMUNIZATIONS Vaccine [...] Problem Elevated liver enzymes (R74.8) Active confirmed [id number] Problem Pancreatic insufficiency (K86.89) Active confirmed [id number] VITAL SIGNS Temperature 98.6 degrees Fahrenheit 10/01/2023 Blood pressure diastolic 00 mm Hg 10/01/2023 Height 5 ft 10 in in 10/01/2023 Blood pressure systolic 000 mm Hg 10/01/2023 Weight 95 lb 2 oz lbs 10/01/2023 BMI 13.65 kg/m2 10/01/2023 Encounters Encounter Location Date Provider Diagnosis [facility] [address] [place] [phone] 04/02/2024 Varun Coulter Jr [facility] [address] [place] [phone] 10/01/2023 Varun Coulter Jr Elevated liver enzymes R74.8 and Pancreatic insufficiency K86.89 [facility] [address] [place] [phone] 03/23/2024 Varun Coulter Jr ASSESSMENTS Encounter Date [...] Insured Coverage Start Date Coverage End Date [facility] [address] [place] [id number] GONZÁLEZ TERI Self - patient is the insured MEDICAID OF [facility] [email or web address] [address] [place] [phone] [id number] GONZÁLEZ, TERI Self - patient is the [...]
== END 2024-08-04 12:16 | disposition home or self-care (01) ==
PROVIDERS: PCP Family Medicine; Visit Provider Family Medicine
DX: R73.03 Prediabetes (principal); R63.6 Underweight; C34.91 Malignant neoplasm of unspecified part of right bronchus or lung

== ENCOUNTER → 2024-08-04 11:36 | Outpatient (BNVA) | payer OTHER, SELFPAY | PROVIDERS: PCP Family Medicine; Visit Provider Family Medicine | DX: R73.03 Prediabetes (principal); R63.6 Underweight; C34.91 Malignant neoplasm of unspecified part of right bronchus or lung | CPT/HCPCS: 99212 ==

== ENCOUNTER 2024-10-04 10:48 | Outpatient (AMB) | payer OTHER, SELFPAY ==
--- NOTE | 2024-10-04 11:00 | MHC.PC.OV ---
Vital Signs 10/04/24 11:08 Height 5 ft 10 in Weight 94 lb BMI 13.5 BP 110/50 L Blood Pressure Location Lt brachial Position Sitting Respiration 12 Pulse 61 Pulse Source Pulse Oximeter Temp 97.8 F Temp Source Oral Pulse Oximetry (%) 98 Oxygen Delivery Method Room Air Intake Visit Reasons: f/u underweight Intake Note: patient is scheduled for underweight follow up Supervisor Ticket Sales Required: No Allergies No Known Allergies Allergy (Verified 10/04/24 11:07) Tobacco use date assessed: 10/16/23 Dental Screening Dental Screen Date: 08/14/23 HPI f/u underweight HPI Details 69 y/o male presents to f/u underweight. History?of?adenocarcinoma?of?the?lung?and?COPD.??He?had?lost?significant?amounts?of?weight and continues to struggle with this. [facility] Medical History Back pain Irregular heartbeat Scoliosis Hypertension Surgical History No pertinent past surgical history Family History Mother Diabetes Father Colon cancer Bladder cancer Social History Housing: Apartment Alcohol intake: unknown Patient Tobacco Use Status: Former Tobacco user Tobacco use type: Cigarette Cigarettes Per Day: 3 Years Smoked: 50 e-Cigarette/Vaping Use: Never Used service: No Current occupational status: retired Cognitive needs: No Hearing needs: No Vision needs: No Questionnaire PHQ-9 Over the last 2 weeks, how often have you been bothered by any of the following problems? 1. Little interest or pleasure in doing things: not at all 2. Feeling down, depressed, or hopeless: not at all 3. Trouble falling or staying asleep, or sleeping too much: not at all 4. Feeling tired or having little energy: not at all 5. Poor appetite or overeating: not at all 6. Feeling bad about yourself - or that you are a failure or have let yourself or your family down: not at all 7. Trouble concentrating on things, such as reading the newspaper or watching television: not at all 8. Moving or speaking so slowly that other people could have noticed. Or the opposite - being so fidgety or restless that you have been moving around a lot more than usual: not at all 9. Thoughts that you would be better off or of hurting yourself in some way: not at all Total score: 0 Depression Screening Interpretation: Negative Depression Screening Done: Yes 99220 - PHQ-9 Billing: Yes Source: Developed by Drs. Chito Rodríguez, Angeles Chen, Aayush Lamas and colleagues, with an educational alex from [employer]. Thrive Questionnaire Date Thrive assessed: 10/04/24 I am a: Patient What is your living situation today?: I have a steady place to live Within the past 12 months, did the food you bought not last and you didn't have the money to get more?: Never true Within the past 12 months, did you worry whether your food would run out before you got money to buy more?: Never true Do you have trouble paying for medicines?: No Do you have trouble getting transportation to medical appointments?: No Do you have trouble paying your heating and electricity bill?: No Do you have trouble taking care of your child, family member or friend?: No Do you have trouble with day-to-day activities such as bathing, preparing meals, shopping, managing finances, etc.?: No Are you currently unemployed and looking for a job?: I choose not to answer this question Are you interested in more education?: No Please select the resources that you would like help with: None Currently or been in a relationship where the following occur: I choose not to answer THRIVE Score: 0 AUDIT C Alcohol Use Questionnaire (AUDIT-C) 3. How often do you have six or more drinks on one occasion?: Never Total Score: 0 JOAQUIN-7 AMB Questionnaire JOAQUIN-7 Date JOAQUIN - 7 assessed: 10/04/24 Feeling nervous, anxious, or on edge: 0 = Not at all Not being able to stop or control worryin = Not at all Worrying too much about different things: 0 = Not at all Trouble relaxin = Not at all Being so restless that it is hard to sit still: 0 = Not at all Becoming easily annoyed or irritable: 0 = Not at all Feeling afraid as if something awful might happen: 0 = Not at all Total JOAQUIN-7 score (0-4 normal; 5-9 mild; 10-14 moderate; 15-21 severe): 0 Source: Developed by Drs. Chito Rodríguez, Angeles Chen, Aayush Lamas and colleagues, with an educational alex from [employer]. JOAQUIN-7 Assessment Billing JOAQUIN-7 Assessment Tool: JOAQUIN-7 Assessment 59869 Review of Systems Const Denies chills, Denies fatigue, Denies fever(s), Denies headache(s) and Denies weakness ENT Denies dizziness and Denies headache(s) Card Denies dyspnea Resp Denies cough, Denies dyspnea, Denies wheezing and Denies other (shortness of breath) Musc Denies numbness and Denies tingling Neuro Denies dizziness, Denies headache(s), Denies numbness, Denies tingling and Denies weakness Psych Denies anxiety and Denies depression Endo Denies fatigue Aller/Immun Denies wheezing Physical exam (Primary Care) Vital Signs: Last Vital Signs Temp 97.8 F 10/04/24 11:08 Pulse 61 10/04/24 11:08 Resp 12 10/04/24 11:08 BP 110/50 L 10/04/24 11:08 Pulse Ox 98 10/04/24 11:08 Oxygen Delivery Method Room Air 10/04/24 11:08 BMI result Body Mass Index 13.5 Tobacco/Smoking Status: Tobacco use Status Tobacco use date assessed 10/16/23 10/04/24 11:02 Patient Tobacco Use Status Former Tobacco user 10/04/24 11:02 Tobacco use type Cigarette 10/04/24 11:02 e-Cigarette/Vaping Use Never Used 10/04/24 11:02 PHQ-9: PHQ-9 Score PHQ-9: Total score 0 10/04/24 11:34 Depression Screening Interpretation: Negative Thrive Assessment: Date of Thrive Assessment Date Thrive assessed 10/04/24 10/04/24 11:13 Currently or been in a relationship where the following occur: I choose not to answer Const General: well developed; No acute distress Nutritional Appearance: underweight Orientation/consciousness: patient oriented x3 HENMT Head: Yes normocephalic and Yes atraumatic Eyes General: appearance normal, both eyes and all related structures Pupils: Equal, round and reactive pupils present EOM: EOMs intact bilaterally Resp Effort & Inspection: normal respiratory effort Auscultation: clear to auscultation bilaterally Cardio Rate: regular rate Rhythm: regular rhythm Heart sounds: S1 normal heart sound present, S2 normal heart sound present, no gallops, no murmurs and no rubs Neuro General: patient oriented x3 and gait normal Cranial nerves: Yes Equal, round and reactive pupils present Psych Affect: normal affect Coding Level of Care Code Est Pt Level 3 (22325) Diagnoses Underweight R63.6 Adenocarcinoma of right lung C34.91 Additional Codes JOAQUIN-7 Assessment Billing - JOAQUIN-7 Assessment Tool: JOAQUIN-7 Assessment 24892 ([id number]) PHQ-9 - 98039 - PHQ-9 Billing: Yes ([id number]) Assessment & Plan Assessment & Plan (1) Underweight: Code(s): R63.6 - Underweight Category: Medical Plan: Patient?with?history?of?adenocarcinoma?lung?and?resection?presents?with?ongoing?issues?with?underweight?status/failure?to?thrive. He?is?using?protein?shakes. Will?give?him?a?short?course?of?Megace?to?try?to?increase?appetite. He?can?stop?if?he?is?having?any?adverse?effects Check?labs (2) Adenocarcinoma of right lung: Code(s): C34.91 - Malignant neoplasm of unspecified part of right bronchus or lung Category: Medical Plan: Currently?stable - no?new?evidence?of?metastatic?disease?on?most?recent?imaging Follow-up?with??[facility] Orders: Orders Comprehensive [place]. Panel Fast Today Z00.00 - Encounter for general adult medical examination without abnormal findings UA and rflx microscopic Today Z00.00 - Encounter for general adult medical examination without abnormal findings Complete Blood Count Auto Diff Today Z00.00 - Encounter for general adult medical examination without abnormal findings TSH reflex Free T4 Today Z00.00 - Encounter for general adult medical examination without abnormal findings Medications: New megestrol 200 mg (5 mL) PO BID 30 days 300 mL 0RF
[2024-10-04 11:08] VITALS: BP 110/50; PULSE 61; RESP 12; TEMP 36.6; O2SAT 98; BMI 13.5
== END 2024-10-04 11:53 | disposition home or self-care (01) ==
LOC: HO.HMCFM 10:49
PROVIDERS: PCP Family Medicine; Visit Provider Family Medicine
DX: R63.6 Underweight (principal); C34.91 Malignant neoplasm of unspecified part of right bronchus or lung

== ENCOUNTER → 2024-10-04 10:48 | Outpatient (BNVA) | payer OTHER, SELFPAY | PROVIDERS: PCP Family Medicine; Visit Provider Family Medicine | DX: R63.6 Underweight (principal); C34.91 Malignant neoplasm of unspecified part of right bronchus or lung | CPT/HCPCS: 96127; 99212 ==

== ENCOUNTER 2024-11-08 07:57 | Outpatient (REF) | payer OTHER, SELFPAY ==
[2024-11-08 11:08] LABS: MANUAL DIFF FLAG NO
[2024-11-08 11:12] LABS: Appearance Urine Clear; Color Urine Dark Yellow; Glucose Urine UA Negative (Negative); Leukocyte Esterase Urine Negative (Negative); Nitrite Urine Negative (Negative); Urine Blood Negative (Negative); Urine Ketones Negative (Negative); Urine Protein Trace mg/dL (Neg-Trace)
[2024-11-08 11:38] LABS: Alanine Aminotransferase 24 U/L (0-40); Albumin Level 4.4 g/dL (3.5-5.0); Alkaline Phosphatase 97 U/L (39-117); Anion Gap 11 (12-20); Aspartate Amino Transferase 34 U/L (5-37); Bilirubin Total 0.7 mg/dL (0.0-1.0); Blood Urea Nitrogen 19 mg/dL (9-16); Calcium 9.2 mg/dL (8.4-10.2); Carbon Dioxide 24 mmol/L (22-29); Chloride 109 mmol/L (96-108); Estimated Glomerular Filt Rate > 60; Glucose Fasting 93 mg/dL (60-99); Potassium 4.2 mmol/L (3.3-5.1); Sodium 140 mmol/L (135-145)
[2024-11-08 11:54] LABS: TSH reflex Free T4 7.48 uIU/mL (0.32-4.0)
[2024-11-08 12:21] LABS: Basophils Absolute Auto 0.1 X10*3/uL (0.0-0.2); Basophils Percent Auto 0.7 % (0-2); Eosinophils Absolute Auto 0.2 X10*3/uL (0.0-0.4); Eosinophils Percent Auto 1.4 % (0-4); Hematocrit 42.4 % (42.0-52.0); Hemoglobin 14.2 g/dl (14.0-18.0); Imm Gran Abs Auto 0.09 X10*3/uL (0.00-0.03); Imm Gran Pct Auto 0.8 % (0.0-0.4); Lymphocytes Absolute Auto 2.1 X10*3/uL (1.2-4.9); Lymphocytes Percent Auto 17.7 % (20-40); Mean Corpuscular HGB Conc 33.5 g/dl (31.0-36.0); Mean Corpuscular Hemoglobin 31.5 pg (27.0-33.0); Mean Platelet Volume 10.4 fL (9.4-12.4); Monocytes Absolute Auto 1.2 X10*3/uL (0.1-1.2); Monocytes Percent Auto 10.3 % (2-11); Neutrophils Percent Auto 69.1 % (45-73); Platelet Count 174 X10*3/uL (160-400); Red Blood Count 4.51 X10*6/uL (4.60-5.80); Red Cell Distribution Width 13.2 % (11.0-16.0); White Blood Count 11.6 X10*3/uL (4.8-10.8)
[2024-11-08 12:27] LABS: Free T4 (Free Thyroxine) 0.95 ng/dL (0.71-1.85)
== END 2024-11-08 07:58 | disposition home or self-care (01) ==
LOC: HO.WFDLDS 07:57
PROVIDERS: Visit Provider Family Medicine
DX: Z00.00 Encounter for general adult medical examination without abnormal findings (principal); Z13.29 Encounter for screening for other suspected endocrine disorder; Z13.0 Encounter for screening for diseases of the blood and blood-forming organs and certain disorders involving the immune mechanism
CPT/HCPCS: 36415; 80053; 81003; 84439; 84443; 85025

== ENCOUNTER 2024-11-16 09:48 | Outpatient (AMB) | payer OTHER, SELFPAY ==
--- NOTE | 2024-11-16 10:55 | MHC.PC.OV ---
Vital Signs 11/16/24 10:59 Height 5 ft 10 in Weight 96 lb 2 oz BMI 13.8 BP 96/60 Blood Pressure Location Rt brachial Position Sitting Respiration 14 Pulse 63 Pulse Source Pulse Oximeter Temp 97.5 F Temp Source Oral Pulse Oximetry (%) 100 Oxygen Delivery Method Room Air Intake Visit Reasons: f/u underweight Allergies No Known Allergies Allergy (Verified 11/16/24 10:58) Tobacco use date assessed: 11/16/24 Fall risk assessment: No Falls in past year Last assessed Fall Risk: 11/16/24 Dental Screening Dental Screen Date: 11/16/24 Did you have a dental visit in the last 12 months?: No Did you have a dental problem in the last 6 months where you did not have access to dental care?: No Was dental information given to patient?: No HPI f/u underweight HPI Details 69 y/o male presents to f/u underweight status. Hx of adenocarcinoma lung and resection. Given him a course of Megace to try and increase appetite. Weight mildly improved from 94 lbs to 96 lbs, 13.8 BMI. He notes megace had helped with his appetite a bit. He declines another course of megace. Labs drawn 11/08/24. Reviewed labs with pt. TSH 7.48 uIU/mL. Free T4 0.95. HPI Comments History of Present Illness Details Documentation assistance for Rohan Kong MD, was provided by Omar Fernando,? Instructional Systems Designer on 11/16/2024 at 11:26 AM EST. I, Dr. Kong, have read, observed, and verified documentation. ?? PFSH Medical History Back pain Irregular heartbeat Scoliosis Hypertension Surgical History No pertinent past surgical history Family History Mother Diabetes Father Colon cancer Bladder cancer Social History Housing: Apartment Alcohol intake: unknown Patient Tobacco Use Status: Former Tobacco user Tobacco use type: Cigarette Cigarettes Per Day: 3 Years Smoked: 50 e-Cigarette/Vaping Use: Never Used service: No Current occupational status: retired Current occupational exposures/hazards: No Cognitive needs: No Hearing needs: No Vision needs: No Questionnaire PHQ-9 Over the last 2 weeks, how often have you been bothered by any of the following problems? 1. Little interest or pleasure in doing things: not at all 2. Feeling down, depressed, or hopeless: not at all 3. Trouble falling or staying asleep, or sleeping too much: not at all 4. Feeling tired or having little energy: not at all Depression Screening Interpretation: Negative Depression Screening Done: Yes 75634 - PHQ-9 Billing: Yes Source: Developed by Drs. Chito Rodríguez, Angeles Chen, Aayush Lamas and colleagues, with an educational alex from [employer]. Thrive Questionnaire Date Thrive assessed: 11/16/24 I am a: Patient What is your living situation today?: I have a steady place to live Within the past 12 months, did the food you bought not last and you didn't have the money to get more?: Never true Within the past 12 months, did you worry whether your food would run out before you got money to buy more?: Never true Do you have trouble paying for medicines?: No Do you have trouble getting transportation to medical appointments?: No Do you have trouble paying your heating and electricity bill?: No Do you have trouble taking care of your child, family member or friend?: No Do you have trouble with day-to-day activities such as bathing, preparing meals, shopping, managing finances, etc.?: No Are you currently unemployed and looking for a job?: I choose not to answer this question Are you interested in more education?: No Please select the resources that you would like help with: None Currently or been in a relationship where the following occur: I choose not to answer THRIVE Score: 0 JOAQUIN-7 AMB Questionnaire JOAQUIN-7 Date JOAQUIN - 7 assessed: 11/16/24 Feeling nervous, anxious, or on edge: 0 = Not at all Not being able to stop or control worryin = Not at all Worrying too much about different things: 0 = Not at all Trouble relaxin = Not at all Being so restless that it is hard to sit still: 0 = Not at all Becoming easily annoyed or irritable: 0 = Not at all Feeling afraid as if something awful might happen: 0 = Not at all Total JOAQUIN-7 score (0-4 normal; 5-9 mild; 10-14 moderate; 15-21 severe): 0 Source: Developed by Drs. Chito Rodríguez, Angeles Chen, Aayush Lamas and colleagues, with an educational alex from [employer]. JOAQUIN-7 Assessment Billing JOAQUIN-7 Assessment Tool: JOAQUIN-7 Assessment 68378 Review of Systems Const Denies chills, Denies fatigue, Denies fever(s), Denies headache(s) and Denies weakness ENT Denies dizziness and Denies headache(s) Card Denies dyspnea Resp Denies cough, Denies dyspnea, Denies wheezing and Denies other (shortness of breath) Musc Denies numbness and Denies tingling Neuro Denies dizziness, Denies headache(s), Denies numbness, Denies tingling and Denies weakness Psych Denies anxiety and Denies depression Endo Denies fatigue Aller/Immun Denies wheezing Physical exam (Primary Care) Vital Signs: Last Vital Signs Temp 97.5 F 11/16/24 10:59 Pulse 63 11/16/24 10:59 Resp 14 11/16/24 10:59 BP 96/60 11/16/24 10:59 Pulse Ox 100 11/16/24 10:59 Oxygen Delivery Method Room Air 11/16/24 10:59 BMI result Body Mass Index 13.8 Tobacco/Smoking Status: Tobacco use Status Tobacco use date assessed 11/16/24 11/16/24 10:58 Patient Tobacco Use Status Former Tobacco user 11/16/24 10:58 Tobacco use type Cigarette 11/16/24 10:58 e-Cigarette/Vaping Use Never Used 11/16/24 10:58 Depression Screening Interpretation: Negative Thrive Assessment: Date of Thrive Assessment Date Thrive assessed 11/16/24 11/16/24 10:58 Currently or been in a relationship where the following occur: I choose not to answer Const General: well developed; No acute distress Nutritional Appearance: underweight Orientation/consciousness: patient oriented x3 HENMT Head: Yes normocephalic and Yes atraumatic Eyes General: appearance normal, both eyes and all related structures Pupils: Equal, round and reactive pupils present EOM: EOMs intact bilaterally Resp Effort & Inspection: normal respiratory effort Auscultation: clear to auscultation bilaterally Cardio Rate: regular rate Rhythm: regular rhythm Heart sounds: S1 normal heart sound present, S2 normal heart sound present, no gallops, no murmurs and no rubs Neuro General: patient oriented x3 and gait normal Cranial nerves: Yes Equal, round and reactive pupils present Psych Affect: normal affect Coding Level of Care Code Est Pt Level 4 (00751) Diagnoses Underweight R63.6 Adenocarcinoma of right lung C34.91 Elevated TSH R79.89 Additional Codes JOAQUIN-7 Assessment Billing - JOAQUIN-7 Assessment Tool: JOAQUIN-7 Assessment 65971 ([id number]) PHQ-9 - 36465 - PHQ-9 Billing: Yes ([id number]) Assessment & Plan Assessment & Plan (1) Underweight: Code(s): R63.6 - Underweight Category: Medical Plan: Patient?gained?back?a?couple?of?lb. Had?tried?some?Megace and?he?says?this?did?improve?his?appetite. However,?patient?does?not?want?to?take?this?medication?regularly. We?discussed?that?we?can?use?this?if?we?would?begins?to?fall. For?now?continue?high-calorie?foods?and?regular?meals. Will?monitor?weight (2) Adenocarcinoma of right lung: Code(s): C34.91 - Malignant neoplasm of unspecified part of right bronchus or lung Category: Medical Plan: Stable?without?recurrence?of?active?disease Has?upcoming?appointment?with?his?hematology?oncologist?at?[facility] Follow-up?as?recommended (3) Elevated TSH: Code(s): R79.89 - Other specified abnormal findings of blood chemistry Category: Medical Plan: TSH?is?elevated.??Likely?secondary?to?chronic?disease?or?acute?viral?illness T4?was?within?normal?range Will?recheck?this?in?a?couple?of?months.??We?can?follow-up?in?January Orders: Orders Triiodothyronine T3 Total Today E03.9 - Hypothyroidism, unspecified Free T4 (Free Thyroxine) Today E03.9 - Hypothyroidism, unspecified Thyroid Stimulating Hormone Today E03.9 - Hypothyroidism, unspecified Comprehensive Met. Panel Today R63.4 - Abnormal weight loss
--- OUTSIDE RECORDS SUMMARY | 2024-11-16 10:56 | XMS_ITS ---
Author Organization [facility] Address [address] [place] [phone] Care Team Providers Care Urogynaecologist Name Role Phone Rohan Kong Primary Care Provider Unavailab Varun Nelson Jr Unavailable REASON FOR VISIT FYI Encounters Encounter Location Date Provider Diagnosis [facility] [address] [place] [phone] 03/23/2024 Varun Coulter Jr Plan Of Treatment No Information Progress Notes * TERI CLAUDIODOB: (68 yo M)Acc No.[id number]:03/23/2024 Patient:?TERI CLAUDIO :1955???Age:68 Y???Sex:Male Address:[address] [facility], [place], [address] * true * Date:? Generated for Printi duran/Amol/eTransmitting on:?11/16/2024 10:56 AM EDT
--- OUTSIDE RECORDS SUMMARY | 2024-11-16 10:56 | XMS_ITS ---
Author Organization [facility] Address [address] [place] [phone] Care Team Providers Care Laborer Drying Department Name Role Phone Rohan Kong Primary Care Provider Unavailab Varun Nelson Jr Unavailable [phone] REASON FOR VISIT Patient presents today for abdominal pain Encounters Encounter Location Date Provider Diagnosis [facility] [address] [place] [phone] 04/02/2024 Varun Coulter Jr Plan Of Treatment No Information Progress Notes * TERI CLAUDIODOB: 6 (69 yo M)Acc No.[id number]:04/02/2024 Progress Notes Patient:?TERI CLAUDIO Provider:?Varun Coulter MD :1955???Age:68 Y???Sex:Male Asif e:04/02/2024 Address:[address] [place], [place] [id number] Pcp:Rohan Kong Subjective: * Chief Complaints: * ???1. Patient presents today for abdominal pain. * Medical History:? Objective: * Vitals:? Assessment: Plan: * Treatment: * * The named appointment provid er may or may not be the originator of this progress note, and it is not deemed complete until electronically signed by the appointment provider. Sign off status: Pending * Provider:?Varun Coulter MD Date:?0 04/02/2024 Generated for Monicai ng/Fakattyg/eTransmitting on:?11/16/2024 10:55 AM EDT
--- OUTSIDE RECORDS SUMMARY | 2024-11-16 10:56 | XMS_ITS ---
Author Organization [facility] Address [address] [place] [address] Care Team Providers Care Mammalogy Teacher Name Role Phone Rohan Kong Primary Care Provider UnavailVarun Magaña Jr Unavailable Allergies Allergen (clinical drug ingredient) Drug/Non Drug Allergy documented on EMR Reaction Allergy Type Onset Date Status hay fever (uncoded) Unknown Allergy Active REASON FOR VISIT patient presents today for consultation Medications Medication SIG (Take, Route, Fr equency, Duration) Notes Start Date End Date Status Gabapentin 100 MG TAKE 1 CAPSULE BY MO UTH THREE TIMES DAILY Oral for 30 Active oxyCODONE HCl 10 MG TAKE ONE TABLET BY M OUTH EVERY 4 HOURS NEEDED FOR PAIN Oral for 8 Active Creon 57920-20384 UNIT Oral for 30 Active Immunizations Vaccine Route Administration Date Status Comme nts Influenza Unknown 10/01/2023 Refused Social History Tobacco Use: Social History Observation Description Date Details (start date - stop date) Former Smoker NA - NA Tobacco Use/Smoking Question Answer Notes Patient is a former smoker Alcohol Screen Question Answer Notes Did you have a drink containing alcohol in the p ast year? No Points 0 Interpretation Negative Problems Problem Type SNOMED Code ICD Code Onset Dates Problem Status W/U Status Risk Notes Problem [id number] Elevated liver enzymes (R74.8) Active confirmed Problem 38215566 Pancreatic insufficiency (K86.89) Active confirmed Vital Signs Temperature 98.6 degrees Fahrenheit 10/01/19 24 Blood pressure systolic 000 mm Hg 10/01/19 24 Blood pressure diastolic 00 mm Hg 024 Height 5 ft 10 in in 10/01/2023 Weight 95 lb 2 oz lbs 10/01/2023 BMI 13.65 kg/m2 10/01/2023 Encounters Encounter Location Date Provider Diagnosis [facility] [address] [place] [address] 10/01/2023 Varun Coulter Jr Elevated liver enzymes R74.8 and Pancreatic insufficiency K86.89 Assessments Encounter Date Diagnosis (ICD Code) Assessment Notes Treatment Notes Treatment Clinical Notes Section Notes 10/01/2023 Elevated liver enzymes (ICD-10 - R74.8) Liver disease - resources material was printed Imaging studies have shown no metastatic disease to his liver, and we discussed this today. He will continue to have his liver function tests monitored. Cholelithiasis was noted but he has no signs of acute cholecystitis. Clinically he has improved since starting pancreatic enzyme supplementation and I recommended he continue this today. Followup will be in 6 months. 10/01/2023 Pancreatic insufficiency (ICD-10 - K86.89) Imaging studie s have shown no metastatic disease to his liver, and we discussed this today. He will continue to have his liver function tests monitored. Cholelithiasis was noted but he has no signs of acute cholecystitis. Clinically he has improved since starting pancreatic enzyme supplementation and I recommended he continue this today. Followup will be in 6 months. Plan Of Treatment Treatment Notes Assessment Notes Elevated liver enzymes Liver disease - r esources material was printed Next Appt Details Follow Up: 1 Year, 6 Months, Reason: Progress Notes * TERI CLAUDIODOB: 6 (68 yo M)Acc No.[id number]:10/01/2023 Progress Notes Patient:?TERI CLAUDIO Provider:?Varun Coulter MD :1955???Age:68 Y???Sex:Male Asif e:10/01/2023 Address:[address] [place], [place] [id number] Pcp:Rohan Kong Subjective: * Chief Complaints: * ???1. Patient presents today for consultation. * HPI: ???New symptom(s):? Mr. Claudio is a 68-year-old man seen today in consultation at the request of his primary care provider and oncologist. He was previously seen in [place] in June because of LFT elevations. related to pembrolizumab, and outside records are reviewed. At that time he was treated with steroids and mycophenolate. Liver function tests subsequently improved. He not taking these medications currently. 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 ?He was recently started on pancreatic enzyme supplementation for exocrine pancreatic insufficiency. This has improved his symptoms substantially. He has never undergone colonoscopy and does not wish to. * ROS:?General/Constitutional:?Change in appetite?denies.?Fatigue?denies.?ENT:?Patient denies?difficulty swallowing.?Respiratory:?Patient denies?shortness of breath.?Cardiovascular:?Patient denies?chest pain.?Gastrointestinal:?Comments?See HPI for details.?Genitourinary:?Difficulty urinating?denies.?Incontinence?denies.?Musculoskeletal:?Patient denies?muscle aches.?Skin:?Patient denies?pruritis.?Neurologic:?Patient denies?low back pain.?Psychiatric:?Patient denies?mental or physical abuse.? * Medical History:?Right upper lobe poorly differentiated adenocarcinoma, with metastasis, including bone and lymph node. Previous treatment stopped due to elevated liver function tests requiring immunosuppressive drugs. Status post XRT right lung and thoracic spine. * Surgical History:?Denies Pas t Surgical History. * Family History:?Father: dece ased, diagnosed with Colon cancer.?Mother: , diagnosed with Diabetes.? No family history of liver cancer. * Social History:?Tobacco Use:?Tobacco Use/Smoking?Patient is a?former smoker.?Drugs/Alcohol:?Alcohol Screen?Did you have a drink containing alcohol in the past year??No,?Points?0,?Interpretation?Negative.?Miscellaneous:?Marital status: single. Occupation: retired. * Medications:?Taking Creon 12 000-11782 UNIT Capsule Delayed Release Particles Oral , Taking oxyCODONE HCl 10 MG Tablet TAKE ONE TABLET BY MOUTH EVERY 4 HOURS NEEDED FOR PAIN Oral , Taking Gabapentin 100 MG Capsule TAKE 1 CAPSULE BY MOUTH THREE TIMES DAILY Oral , Medication List reviewed and reconciled with the patient * Allergies:?Hay Fever. Objective: * Vitals:?Wt: 95 lb 2 oz, Ht: 5 ft 10 in, BMI:13.65 Index, BP: 000/00 mm Hg, Temp: 98.6. * Examination: ???General Examination: ?GENERAL APPEARANCE:?Cachexia is present.?HEAD:?normocephalic.?EYES:?sclera non-icteric.?ORAL CAVITY:?mucosa moist.?NECK/THYROID:?no lymphadenopathy.?SKIN:?anicteric.?HEART:?S1, S2 normal, no murmurs.?LUNGS:?clear to auscultation bilaterally.?CHEST:?normal shape and expansion.?ABDOMEN:?soft, nontender, nondistended, bowel sounds present, no organomegaly .?EXTREMITIES:?no clubbing, cyanosis, or edema.?PSYCH:?cognitive function intact.? Assessment: * Assessment: 1.?Elevated liver enzymes - R74.8 (Primary)?2.?Pancreatic insufficiency - K86.89? Imaging studies have shown n o metastatic disease to his liver, and we discussed this today. He will continue to have his liver function tests monitored. Cholelithiasis was noted but he has no signs of acute cholecystitis. Clinically he has improved since starting pancreatic enzyme supplementation and I recommended he continue this today. Followup will be in 6 months. Plan: * Treatment: * Immunizations:? Influenza (Not administered - Refused: Patient decision) * Procedure Codes:?G2101 Pt 67 + frailty and adv ill, G9903 Pt scrn tbco id as non user, G9745 DOC RSN FOR NOT SCREEN/REC F/U HBP * Preventive Medicine:? ??Counseling:?Care goal follow-up plan:?Below Normal BMI Follow-up?Nutrition / feeding management,?BMI management provided?Yes.? * Follow Up:?1 Year, 6 Months * * Sign off status: Completed true * Provider:?Varun Coulter MD Date:?0 10/01/2023 Generated for Printi ng/Fakattyg/eTransmitting on:?11/16/2024 10:55 AM EDT History and Physical Notes * HPI (History of Present Illness) Category Sub-Category Detail Notes Category Not es New symptom(s) Mr. Claudio is a 68-year-old man seen today in consultation at the request of his primary care provider and oncologist. He was previously seen in [place] in June because of LFT elevations. related to pembrolizumab, and outside records are reviewed. At that time he was treated with steroids and mycophenolate. Liver function tests subsequently improved. He not taking these medications currently. 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 He was recently started on pancreatic enzyme supplementation for exocrine pancreatic insufficiency. This has improved his symptoms substantially. He has never undergone colonoscopy and does not wish to. Examination Category Sub-Category Detail Notes Category Not es General Examination GENERAL APPEARANCE: Cachexia is pr esent HEAD: normocephalic EYES: sclera non-icteric NECK/THYROID: no lymphadenopathy HEART: S1, S2 normal, no mu rmurs CHEST: normal shape and exp ansion LUNGS: clear to auscultatio n bilaterally ABDOMEN: soft, nontender, non distended, bowel sounds present, no organomegaly SKIN: anicteric EXTREMITIES: no clubbing, cyanosi s, or edema PSYCH: cognitive function i ntact ORAL CAVITY: mucosa moist
--- OUTSIDE RECORDS SUMMARY | 2024-11-16 10:56 | XMS_ITS | Patient Health Record ---
Author Organization [facility] Address [address] [place] [address] Care Team Providers Care Sporting Goods Sales Associate Name Role Phone Rohan Kong Primary Care Provider UnavailVarun Magaña Jr Unavailable [phone] Allergies Allergen (clinical drug ingredient) Drug/Non Drug Allergy documented on EMR Reaction Allergy Type Onset Date Status hay fever (uncoded) Unknown Allergy Active Reason For Referral No Information Medications Medication SIG (Take, Route, Fr equency, Duration) Notes Start Date End Date Status Gabapentin 100 MG TAKE 1 CAPSULE BY MO UTH THREE TIMES DAILY Oral for 30 Active oxyCODONE HCl 10 MG TAKE ONE TABLET BY M OUTH EVERY 4 HOURS NEEDED FOR PAIN Oral for 8 Active Creon 11479-90269 UNIT Oral for 30 Active Immunizations Vaccine [...] Problem Status W/U Status Risk Notes Problem [id number] Elevated liver enzymes (R74.8) Active confirmed Problem 25797679 Pancreatic insufficiency (K86.89) Active confirmed Encounters Encounter Location Date Provider Diagnosis [facility] [address] [place] [address] 03/23/2024 Varun Coulter Jr Plan Of Treatment No Information Insurance Providers Payer Name Payer Address Payer Phone Subscriber Number Group Number Insured Name Patient Relationship to Insured Coverage Start Date Coverage End Date [facility] [address] [place] [id number] [phone] [id number] TERI CLAUDIO Self - patient is the insured MEDICAID OF [facility] [address] [place] [address] [phone] [id number] TERI CLAUDIO Self - patient is the insured Medical (General) History Medical History History ICD Code 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 Previous treatment stopped due to elevated liver function tests requiring immunosuppressive drugs. Status post XRT right lung and thoracic spine Surgical History Surgery Date(Month/Year) Hospitalization History Reason Date(Month/Year)
[2024-11-16 10:59] VITALS: BP 96/60; PULSE 63; RESP 14; TEMP 36.4; O2SAT 100; BMI 13.8
== END 2024-11-16 11:38 | disposition home or self-care (01) ==
LOC: HO.HMCFM 09:49
PROVIDERS: PCP Family Medicine; Visit Provider Family Medicine
DX: R63.6 Underweight (principal); C34.91 Malignant neoplasm of unspecified part of right bronchus or lung; R79.89 Other specified abnormal findings of blood chemistry

== ENCOUNTER → 2024-11-16 09:48 | Outpatient (BNVA) | payer OTHER, SELFPAY | PROVIDERS: PCP Family Medicine; Visit Provider Family Medicine | DX: R63.6 Underweight (principal); C34.91 Malignant neoplasm of unspecified part of right bronchus or lung; R94.6 Abnormal results of thyroid function studies | CPT/HCPCS: 96127; 99212 ==

== ENCOUNTER 2025-01-17 07:41 | Outpatient (REF) | payer OTHER, SELFPAY ==
--- OUTSIDE RECORDS SUMMARY | 2024-04-02 06:00 | XMS_ITS ---
Author Organization [facility] Address [address] [place] [phone] Care Team Providers Care Cotton Candy Maker Name Role Phone Rohan Kong Primary Care Provider UnavailVarun Magaña Jr Unavailable REASON FOR VISIT Patient presents today for abdominal pain Encounters Encounter Location Date Provider Diagnosis [facility] [address] [place] [phone] 04/02/2024 Varun Coultre Jr Plan Of Treatment No Information Progress Notes * TERI CLAUDIODOB: 6 (69 yo M)Acc No.[id number]:04/02/2024 Progress Notes Patient: TERI BELL Provider: Padilla Coulter MD :1955 A ge:68 Y S ex:Male Date:04/02/2024 Address:[address] [place], [place] [id number] Pcp:Rohan Kong Subjective: * Chief Complaints: * 1 . Patient presents today for abdominal pain. * Medical History: Objective: * Vitals: Assessment: Plan: * Treatment: * * The named appointment provid er may or may not be the originator of this progress note, and it is not deemed complete until electronically signed by the appointment provider. Sign off status: Pending * Provider: Padilla Coulter MD Date: 0 04/02/2024 Generated for Monicai duran/Amol/eTransmitting on: 0 01/17/2025 07:43 AM EDT
[2025-01-17 11:28] LABS: MANUAL DIFF FLAG NO
[2025-01-17 11:34] LABS: Hematocrit 42.3 % (42.0-52.0); Hemoglobin 14.2 g/dl (14.0-18.0); Imm Gran Abs Auto 0.03 X10*3/uL (0.00-0.03); Imm Gran Pct Auto 0.4 % (0.0-0.4); Lymphocytes Absolute Auto 1.3 X10*3/uL (1.2-4.9); Mean Corpuscular HGB Conc 33.6 g/dl (31.0-36.0); Mean Corpuscular Hemoglobin 31.6 pg (27.0-33.0); Mean Corpuscular Volume 94.2 fL (80.0-98.0); NRBC Abs Auto 0.000 X10*3/uL (0.0-0.012); NRBC Pct Auto 0.0 /100WBC (0.0-0.2); Platelet Count 214 X10*3/uL (160-400); Red Blood Count 4.49 X10*6/uL (4.60-5.80); White Blood Count 7.7 X10*3/uL (4.8-10.8)
[2025-01-17 11:36] LABS: Appearance Urine Clear; Glucose Urine UA Negative (Negative); PH 7.0 (5.0-9.0); Specific Gravity - Urine 1.020 (1.005-1.025)
[2025-01-17 13:21] LABS: Free T4 (Free Thyroxine) 0.92 ng/dL (0.71-1.85); Thyroid Stimulating Hormone 3.93 uIU/mL (0.32-4.0)
[2025-01-17 13:51] LABS: Anion Gap 13 (12-20)
[2025-01-17 13:56] LABS: Alanine Aminotransferase 21 U/L (0-40); Albumin Level 4.5 g/dL (3.5-5.0); Alkaline Phosphatase 110 U/L (39-117); Aspartate Amino Transferase 26 U/L (5-37); Blood Urea Nitrogen 19 mg/dL (9-16); Calcium 9.3 mg/dL (8.4-10.2); Carbon Dioxide 27 mmol/L (22-29); Chloride 104 mmol/L (96-108); Estimated Glomerular Filt Rate > 60; Potassium 4.5 mmol/L (3.3-5.1); Sodium 139 mmol/L (135-145); Total Protein 6.9 g/dL (6.5-8.0)
== END 2025-01-17 07:42 | disposition home or self-care (01) ==
LOC: HO.WFDLDS 07:41
PROVIDERS: Visit Provider Family Medicine
DX: Z00.00 Encounter for general adult medical examination without abnormal findings (principal); E03.9 Hypothyroidism, unspecified; R63.4 Abnormal weight loss
CPT/HCPCS: 36415; 80053; 81003; 84439; 84443; 84480; 85025

== ENCOUNTER 2025-02-08 09:27 | Outpatient (AMB) | payer OTHER, SELFPAY ==
--- OUTSIDE RECORDS SUMMARY | 2024-04-02 06:00 | XMS_ITS ---
Author Organization [facility] Address [address] [place] [phone] Care Team Providers Care Secondary School Teacher Librarian Name Role Phone Rohan Kong Primary Care Provider Varun Moreno Jr Unavailable REASON FOR VISIT Patient presents today for abdominal pain Encounters Encounter Location Date Provider Diagnosis [facility] [address] [place] [phone] 04/02/2024 Varun Coulter Jr Plan Of Treatment No Information Progress Notes * TERI CLAUDIODOB: 6 (69 yo M)Acc No.[id number]:04/02/2024 Progress Notes Patient: TERI BELL Provider: Padilla Coulter MD :1955 A ge:68 Y S ex:Male Date:04/02/2024 Address:[address] [place], [place] [id number] Pcp:Rohan Kong Subjective: * Chief Complaints: * [...] 04/02/2024 Generated for Monicai duran/Amol/eTransmitting on: 0 02/08/2025 09:57 AM EDT
--- NOTE | 2025-02-08 09:23 | MHC.PC.OV ---
Intake Visit Reasons: f/u elevated tsh, labs via telemed Allergies No Known Allergies Allergy (Verified 02/08/25 09:24) Medication List - Last Reconciled 02/08/25 by Rohan Kong MD gabapentin 100 mg PO BEDTIME [id number]-krdwioss-tqhhgbb 12,000-38,000 -60,000 unit (Creon) 1 cap PO TID megestrol 200 mg (5 mL) PO BID 30 days oxycodone 10 mg PO DAILY PRN Tobacco use date assessed: 02/08/25 Dental Screening Dental Screen Date: 02/08/25 Did you have a dental visit in the last 12 months?: No Did you have a dental problem in the last 6 months where you did not have access to dental care?: No Was dental information given to patient?: Patient declined HPI f/u elevated tsh, labs via telemed HPI Details 69 y/o male presents to f/u labs via telemed. TSH back to normal range - 7.48 to 3.93 uIU/mL. Free T4 and Total T3 were also fine. Pt notes donnie has been helping for his weight. [facility] Medical History Back pain Irregular heartbeat Scoliosis Hypertension Surgical History No pertinent past surgical history Family History Mother Diabetes Father Colon cancer Bladder cancer Social History (Updated 02/08/25 @ 09:26 by Alyssa Willams MA) Housing: Apartment Alcohol intake: never Patient Tobacco Use Status: Former Tobacco user Tobacco use type: Cigarette Cigarettes Per Day: 3 Years Smoked: 50 e-Cigarette/Vaping Use: Never Used service: No Current occupational status: retired Current occupational exposures/hazards: No Cognitive needs: No Hearing needs: No Vision needs: No Questionnaire Thrive Questionnaire Date Thrive assessed: 07/28/24 I am a: Patient What is your living situation today?: I have a steady place to live Within the past 12 months, did the food you bought not last and you didn't have the money to get more?: Never true Within the past 12 months, did you worry whether your food would run out before you got money to buy more?: Never true Do you have trouble paying for medicines?: No Do you have trouble getting transportation to medical appointments?: No Do you have trouble paying your heating and electricity bill?: No Do you have trouble taking care of your child, family member or friend?: No Do you have trouble with day-to-day activities such as bathing, preparing meals, shopping, managing finances, etc.?: No Are you currently unemployed and looking for a job?: I choose not to answer this question Are you interested in more education?: No Please select the resources that you would like help with: None Currently or been in a relationship where the following occur: I choose not to answer THRIVE Score: 0 AUDIT C Alcohol Use Questionnaire (AUDIT-C) 2. How many drinks containing alcohol do you have on a typical day when you are drinking?: 1 or 2 Total Score: 0 JOAQUIN-7 AMB Questionnaire JOAQUIN-7 Date JOAQUIN - 7 assessed: 11/16/24 Source: Developed by Drs. Chito Rodríguez, Angeles Chen, Aayush Lamas and colleagues, with an educational alex from [employer]. Review of Systems Const Denies chills, Denies fatigue, Denies fever(s), Denies headache(s) and Denies weakness ENT Denies dizziness and Denies headache(s) Card Denies dyspnea Resp Denies cough, Denies dyspnea, Denies wheezing and Denies other (shortness of breath) Musc Denies numbness and Denies tingling Neuro Denies dizziness, Denies headache(s), Denies numbness, Denies tingling and Denies weakness Psych Denies anxiety and Denies depression Endo Denies fatigue Aller/Immun Denies wheezing Physical exam (Primary Care) Tobacco/Smoking Status: Tobacco use Status Tobacco use date assessed 02/08/25 02/08/25 09:26 Patient Tobacco Use Status Former Tobacco user 02/08/25 09:26 Tobacco use type Cigarette 02/08/25 09:26 e-Cigarette/Vaping Use Never Used 02/08/25 09:26 Thrive Assessment: Date of Thrive Assessment Date Thrive assessed 07/28/24 02/08/25 09:26 Currently or been in a relationship where the following occur: I choose not to answer Telehealth Telehealth Telehealth Platform: Telephone Location of provider rendering services: practice address Location of patient: address on file Patient Identification confirmed using: Name, : Yes Telehealth method: voice only Patient verbally consented to treatment: Yes Patient verbally consented to billing insurance company: Yes Patient informed of any privacy concerns related to visit: Yes Minutes spent on Phone/Video with Pt.: 5 Coding Level of Care Code Tele Est Pt Level 2 (28532) Diagnoses Elevated TSH R79.89 Underweight R63.6 Assessment & Plan Assessment & Plan (1) Elevated TSH: Code(s): R79.89 - Other specified abnormal findings of blood chemistry Category: Medical Plan: TSH and thyroid hormone levels are all within normal range We can continue to monitor periodically (2) Underweight: Code(s): R63.6 - Underweight Category: Medical Plan: Patient says that Megace did help him gain some weight. He is out of medication Will refill this and follow-up on weight at his next visit Medications: Refilled megestrol 200 mg (5 mL) PO BID 300 mL 1RF 30 days
--- OUTSIDE RECORDS SUMMARY | 2025-02-08 09:57 | XMS_ITS | Clinical Summary ---
Author Organization [facility] Address [address] [place] [id number] Phone Care Team Providers Care Preschool Aide Name Role Phone Rohan Kong MD Primary Care Provider Medications acetaminophen (TYLENOL) 325 mg tabletIndicatio ns:pain Take 650 mg by mouth every 4 (four) hours as needed for pain (specific location in comments). for pain Indications: pain 3 Active oxyCODONE 5 MG immediate release tablet Take 5 mg by mouth every 6 (six) hours as needed for pain (specific location in comments). prn for severe back pain 3 Active multivitamins capsuleIndicati ons:vitamin deficiency prevention Take 1 capsule by mouth daily. Indications: treatment to prevent vitamin deficiency 3 Active ID-rotigotine TDS ([id number]) 3 mg/24 hrIndications:s moking cessation Place 1 patch onto the skin daily. Indications: stop smoking 3 Active Social History Tobacco Use Types Packs/Day Years Used Date Smoking Tobacco: Never Assessed Home Health Assessment: Transportation Answer Date Recorded Lack of Transportation (Medical) No 12/19/2022 Lack of Transportation (Non-Medical) No 12/19/2022 Patient Unable or Declines to Respond No 12/19/2022 Education Answer Date Recorded Are you interested in more education? Not on holly e 11/15/2022 Are you concerned about learning? Not on file 11/15/2022 No 11/15/2022 No 11/15/2022 Digital Access Answer Date Recorded No 12/03/2022 No 12/03/2022 No 12/03/2022 Reliable internet access at home? Not on file 12/03/2022 Device with a working camera? Not on file Sex and Gender Information Value Date Recorded Sex Assigned at Not on file Legal Sex Male 10:04 AM EDT Gender Identity Not on file Sexual Orientation Not on file Last Filed Vital Signs Vital Sign Reading Time Taken Comments Blood Pressure 110/60 12/19/2022 9:10 AM EDT Pulse 68 12/19/2022 9:10 AM EDT Temperature 36.6 C (97.9 F) 12/19/2022 9:10 AM EDT Respiratory Rate 16 12/19/2022 9:10 AM EDT Oxygen Saturation 98% 12/19/2022 9:10 AM EDT Inhaled Oxygen Concentration - - Weight - - Height - - Body Mass Index - - Plan of Treatment Health Maintenance Due Date Last Done Comments Adult Td,Tdap Booster 1956 LIPID PANEL 1956 DEPRESSION SCREENING 1968 SMOKING Hx and SMOKELESS TOBACCO SCREENING 1969 HEPATITIS C SCREENING 1974 COLOGUARD 2001 COLONOSCOPY 2001 COLORECTAL CANCER SCREENING 2001 FIT TEST 2001 FOBT 2001 SIGMOIDOSCOPY 2001 VIRTUAL COLONOSCOPY 2001 PNEUMOCOCCAL VACCINES (50+ years) (1 of 1 - PCV) 2006 ZOSTER VACCINES (1 of 2) 2006 COVID-19 VACCINE (4 - 2023-2 5 season) 2024 07/12/2021, 12/05/2020, 11/01/2020 RSV VACCINE (1 - 1-dose 75+ series) 2031 HEPATITIS A VACCINES Aged Out No long er eligible based on patient's age to complete this topic HIB VACCINES Aged Out No longer eligi ble based on patient's age to complete this topic MENINGOCOCCAL VACCINES (ACWY) Aged Out No longer eligible based on patient's age to complete this topic MENINGOCOCCAL VACCINES (B) Aged Out N o longer eligible based on patient's age to complete this topic Medical Devices Not on file Insurance [address] [place] [address] [facility] PPO MEDICARE [facility]AC[facility] [place] [facility] PPO MEDICARE [facility] MEDICARE REPLACEMENT [place] [facility] PPO MEDICARE REPLACEMENT [facility] PPO MEDICARE REPLACEMENT Care Teams Preschool Aide Relationship Specialty Start Date End Date Rohan Kong MD [address] [place] [id number] PCP - General Family Medicine 11/16/22 Additional Source Comments The information contained in this document represents components of the legal health record. It is not the complete legal health record.[facility]
== END 2025-02-08 16:53 | disposition home or self-care (01) ==
LOC: HO.HMCFM 09:27
PROVIDERS: PCP Family Medicine; Visit Provider Family Medicine
DX: R79.89 Other specified abnormal findings of blood chemistry (principal); R63.6 Underweight

== ENCOUNTER 2025-05-04 08:43 | Outpatient (AMB) | payer OTHER, SELFPAY ==
--- NOTE | 2025-05-04 09:34 | MHC.PC.OV ---
Vital Signs 05/04/25 09:42 Height 5 ft 10 in Weight 104 lb 8 oz BMI 15.0 BP 106/80 Blood Pressure Location Rt brachial Position Sitting Respiration 16 Pulse 62 Pulse Source Pulse Oximeter Temp 98.2 F Temp Source Oral Pulse Oximetry (%) 97 Oxygen Delivery Method Room Air Intake Visit Reasons: f/u chronic conditions Intake Note: patient is scheduled to follow up on chronic conditions his last appt was pertaining to his excessive weight loss. patient states his weight management has been improving and has no other complaints. patient would like to discuss ct scans of his abd and chest along with oncology notes from his last visit. 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 Pt had elevated TSH. Recent labs were fine - thyroid levels were fine. Pt continues to gain weight - went from 96 lbs to 104 lbs. He continues to take megace. 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 Status post 5 cycles immunotherapy April 2023 along with palliative radiation treatment to the right lung and upper thoracic spine. CT scan chest and abdomen 04/14/2025: No evidence of malignancy in the chest and abdomen. Stable post treatment volume loss and scarring in the apical segment of the right upper lobe. Unchanged post treatment changes of chest wall and vertebrae. HPI Comments History of Present Illness Details Documentation assistance for Rohan Kong MD, was provided by Omar Fernando, Scientific Laboratory Supervisor on 05/04/2025 at 10:09 AM EST. I, Dr. Kong, have read, observed, and verified documentation. [facility] Medical History (Reviewed 01/22/24 @ 09:13 by Elena Jackson [facility]) Back pain Irregular heartbeat Scoliosis Hypertension Surgical History No pertinent past surgical history Family History Mother Diabetes Father Colon cancer Bladder cancer Social History (Updated 02/08/25 @ 09:26 by Alyssa Willams MA) Housing: Apartment Alcohol intake: never Patient Tobacco Use Status: Former Tobacco user Tobacco use type: Cigarette Cigarettes Per Day: 3 Years Smoked: 50 e-Cigarette/Vaping Use: Never Used service: No Current occupational status: retired Current occupational exposures/hazards: No Cognitive needs: No Hearing needs: No Vision needs: No Questionnaire Thrive Questionnaire Date Thrive assessed: 07/28/24 I am a: Patient What is your living situation today?: I have a steady place to live Within the past 12 months, did the food you bought not last and you didn't have the money to get more?: Never true Within the past 12 months, did you worry whether your food would run out before you got money to buy more?: Never true Do you have trouble paying for medicines?: No Do you have trouble getting transportation to medical appointments?: No Do you have trouble paying your heating and electricity bill?: No Do you have trouble taking care of your child, family member or friend?: No Do you have trouble with day-to-day activities such as bathing, preparing meals, shopping, managing finances, etc.?: No Are you currently unemployed and looking for a job?: I choose not to answer this question Are you interested in more education?: No Please select the resources that you would like help with: None Currently or been in a relationship where the following occur: I choose not to answer THRIVE Score: 0 JOAQUIN-7 AMB Questionnaire JOAQUIN-7 Date JOAQUIN - 7 assessed: 11/16/24 Source: Developed by Drs. Chito Rodríguez, Angeles Chen, Aayush Lamas and colleagues, with an educational alex from [employer]. Review of Systems Const Denies chills, Denies fatigue, Denies fever(s), Denies headache(s) and Denies weakness ENT Denies dizziness and Denies headache(s) Card Denies dyspnea Resp Denies cough, Denies dyspnea, Denies wheezing and Denies other (shortness of breath) Musc Denies numbness and Denies tingling Neuro Denies dizziness, Denies headache(s), Denies numbness, Denies tingling and Denies weakness Psych Denies anxiety and Denies depression Endo Denies fatigue Aller/Immun Denies wheezing Physical exam (Primary Care) Vital Signs: Last Vital Signs Temp 98.2 F 05/04/25 09:42 Pulse 62 05/04/25 09:42 Resp 16 05/04/25 09:42 BP 106/80 05/04/25 09:42 Pulse Ox 97 05/04/25 09:42 Oxygen Delivery Method Room Air 05/04/25 09:42 BMI result Body Mass Index 15.0 Tobacco/Smoking Status: Tobacco use Status Tobacco use date assessed 02/08/25 05/04/25 09:34 Patient Tobacco Use Status Former Tobacco user 05/04/25 09:34 Tobacco use type Cigarette 05/04/25 09:34 e-Cigarette/Vaping Use Never Used 05/04/25 09:34 Thrive Assessment: Date of Thrive Assessment Date Thrive assessed 07/28/24 05/04/25 09:34 Currently or been in a relationship where the following occur: I choose not to answer Const General: well developed; No acute distress Nutritional Appearance: well nourished and underweight Orientation/consciousness: patient oriented x3 [facility] Head: Yes normocephalic and Yes atraumatic Eyes General: appearance normal, both eyes and all related structures Pupils: Equal, round and reactive pupils present EOM: EOMs intact bilaterally Resp Effort & Inspection: normal respiratory effort Auscultation: clear to auscultation bilaterally Cardio Rate: regular rate Rhythm: regular rhythm Heart sounds: S1 normal heart sound present, S2 normal heart sound present, no gallops, no murmurs and no rubs Neuro General: patient oriented x3 and gait normal Cranial nerves: Yes Equal, round and reactive pupils present Psych Affect: normal affect Coding Level of Care Code Est Pt Level 4 (68816) Diagnoses Adenocarcinoma of right lung C34.91 Underweight R63.6 Elevated TSH R79.89 Assessment & Plan Assessment & Plan (1) Adenocarcinoma of right lung: Code(s): C34.91 - Malignant neoplasm of unspecified part of right bronchus or lung Category: Medical (2) Underweight: Code(s): R63.6 - Underweight Category: Medical (3) Elevated TSH: Code(s): R79.89 - Other specified abnormal findings of blood chemistry Category: Medical Plan 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 Status post 5 cycles immunotherapy April 2023 along with palliative radiation treatment to the right lung and upper thoracic spine. CT scan chest and abdomen 04/14/2025: No evidence of malignancy in the chest and abdomen. Stable post treatment volume loss and scarring in the apical segment of the right upper lobe. Unchanged post treatment changes of chest wall and vertebrae. Patient is taking Megace and weight has continued to increase from 94 lbs to 96 lbs to 104 lbs today. BMI now 15.0 Will continue Megace for now and recheck weight at his next visit. If he has continued to gain weight, will trial off this medication Prior thyroid level had shown elevated TSH. Repeat testing shows thyroid hormone levels all in normal range Medications: Refilled megestrol 200 mg (5 mL) PO BID 300 mL 2RF 30 days
[2025-05-04 09:42] VITALS: BP 106/80; PULSE 62; RESP 16; TEMP 36.8; O2SAT 97; BMI 15.0
== END 2025-05-04 10:14 | disposition home or self-care (01) ==
LOC: HO.HMCFM 08:44
PROVIDERS: PCP Family Medicine; Visit Provider Family Medicine
DX: C34.91 Malignant neoplasm of unspecified part of right bronchus or lung (principal); R63.6 Underweight; R79.89 Other specified abnormal findings of blood chemistry

== ENCOUNTER → 2025-05-04 08:43 | Outpatient (BNVA) | payer OTHER, SELFPAY | PROVIDERS: PCP Family Medicine; Visit Provider Family Medicine | DX: C34.91 Malignant neoplasm of unspecified part of right bronchus or lung (principal); R63.6 Underweight; R79.89 Other specified abnormal findings of blood chemistry; Z92.25 Personal history of immunosuppression therapy | CPT/HCPCS: 99212 ==

== ENCOUNTER 2025-07-01 13:34 | Outpatient (AMB) | payer OTHER, SELFPAY ==
--- NOTE | 2025-07-01 13:45 | A.OFFPC_ITS ---
Vital Signs 07/01/25 13:53 Height 5 ft 10 in Weight 104 lb 6 oz BMI 15.0 BP 116/86 Blood Pressure Location Rt brachial Position Sitting Respiration 15 Pulse 80 Pulse Source Pulse Oximeter Temp 98.1 F Temp Source Temporal Artery Scan Pulse Oximetry (%) 96 Oxygen Delivery Method Room Air Intake Visit Reasons: Diarrhea Intake Note: Chito presents in the office today for diarrhea. Physical Trainer Required: No Allergies No Known Allergies Allergy (Verified 07/01/25 13:52) Tobacco use date assessed: 07/01/25 Dental Screening Dental Screen Date: 07/01/25 Did you have a dental visit in the last 12 months?: No Did you have a dental problem in the last 6 months where you did not have access to dental care?: No Was dental information given to patient?: Patient declined HPI Diarrhea HPI Details 70 y/o male presents today with complain ts of diarrhea. Hx of prediabetes. A1c today 5.3%. Notes diarrhea seems to happen in waves. Denies any fevers or other symptoms. [facility] Medical History Back pain Irregular heartbeat Scoliosis Hypertension Surgical History No pertinent past surgical history Family History Mother Diabetes Father Colon cancer Bladder cancer Social History (Updated 07/01/25 @ 13:53 by Alyssa Willams CMA) Housing: Apartment Alcohol intake: never Patient Tobacco Use Status: Former Tobacco user Tobacco use type: Cigarette Cigarettes Per Day: 3 Years Smoked: 50 e-Cigarette/Vaping Use: Never Used service: No Current occupational status: retired Current occupational exposures/hazards: No Cognitive needs: No Hearing needs: No Vision needs: No Questionnaire Thrive Questionnaire Date Thrive assessed: 07/28/24 I am a: Patient What is your living situation today?: I have a steady place to live Within the past 12 months, did the food you bought not last and you didn't have the money to get more?: Never true Within the past 12 months, did you worry whether your food would run out before you got money to buy more?: Never true Do you have trouble paying for medicines?: No Do you have trouble getting transportation to medical appointments?: No Do you have trouble paying your heating and electricity bill?: No Do you have trouble taking care of your child, family member or friend?: No Do you have trouble with day-to-day activities such as bathing, preparing meals, shopping, managing finances, etc.?: No Are you currently unemployed and looking for a job?: I choose not to answer this question Are you interested in more education?: No Currently or been in a relationship where the following occur: I choose not to answer THRIVE Score: 0 JOAQUIN-7 AMB Questionnaire JOAQUIN-7 Date JOAQUIN - 7 assessed: 11/16/24 Source: Developed by Drs. Chito Rodríguez, Angeles Chen, Aayush Lamas and colleagues, with an educational alex from [email or web address]. Review of Systems Const Denies chills, Denies fatigue, Denies fever(s), Denies headache(s) and Denies weakness ENT Denies dizziness and Denies headache(s) Card Denies dyspnea Resp Denies cough, Denies dyspnea, Denies wheezing and Denies other (shortness of breath) GI Reports diarrhea Musc Denies numbness and Denies tingling Neuro Denies dizziness, Denies headache(s), Denies numbness, Denies tingling and Denies weakness Psych Denies anxiety and Denies depression Endo Denies fatigue Aller/Immun Denies wheezing Physical exam (Primary Care) Vital Signs: Last Vital Signs Temp 98.1 F 07/01/25 13:53 Pulse 80 07/01/25 13:53 Resp 15 07/01/25 13:53 BP 116/86 07/01/25 13:53 Pulse Ox 96 07/01/25 13:53 Oxygen Delivery Method Room Air 07/01/25 13:53 BMI result Body Mass Index 15.0 Tobacco/Smoking Status: Tobacco use Status Tobacco use date assessed 07/01/25 07/01/25 13:59 Patient Tobacco Use Status Former Tobacco user 07/01/25 13:53 Tobacco use type Cigarette 07/01/25 13:53 e-Cigarette/Vaping Use Never Used 07/01/25 13:53 Thrive Assessment: Date of Thrive Assessment Date Thrive assessed 07/28/24 07/01/25 13:47 Currently or been in a relationship where the following occur: I choose not to answer Const General: well developed; No acute distress Nutritional Appearance: well nourished and underweight Orientation/consciousness: patient oriented x3 HENMT Head: Yes normocephalic and Yes atraumatic Eyes General: appearance normal, both eyes and all related structures Pupils: Equal, round and reactive pupils present EOM: EOMs intact bilaterally Resp Effort & Inspection: normal respiratory effort Neuro General: patient oriented x3 and gait normal Cranial nerves: Yes Equal, round and reactive pupils present Psych Affect: normal affect Coding Level of Care Code Est Pt Level 4 (83250) Diagnoses Diarrhea R19.7 Underweight R63.6 Prediabetes R73.03 Assessment & Plan Assessment & Plan (1) Diarrhea: Code(s): R19.7 - Diarrhea, unspecified Category: Medical Plan: Intermittent bouts of watery diarrhea No abdominal pain. No fevers or chills. No nausea. Patient has tried Pepto-Bismol without improvement Had tried a brat diet last year which helped when he had similar symptoms. He will try brat diet again along with clear liquids. Avoid difficult to digest foods and dairy. Checking stool studies to rule out infectious process though this seems unlikely Will follow-up with him in week to review lab work. Will consider loperamide if non infectious (2) Underweight: Code(s): R63.6 - Underweight Category: Medical Plan: Stable (3) Prediabetes: Code(s): R73.03 - Prediabetes Category: Medical Plan: A1c 5.3% Will continue to monitor periodically Orders: Orders Complete Blood Count Auto Diff Today Z00.00 - Encounter for general adult medical examination without abnormal findings Comprehensive [place]. Panel Fast Today Z00.00 - Encounter for general adult medical examination without abnormal findings Comprehensive Met. Panel Today R19.7 - Diarrhea, unspecified
[2025-07-01 13:53] VITALS: BP 116/86; PULSE 80; RESP 15; TEMP 36.7; O2SAT 96; BMI 15.0
--- OUTSIDE RECORDS SUMMARY | 2025-07-01 15:16 | XMS_ITS | Patient Health Record ---
Author Organization [facility] Address [address] [place] [address] Care Team Providers Care Imitation Marble Mechanic Name Role Phone Rohan Kong Primary Care Provider Varun Moreno Jr Unavailable [phone] Allergies Allergen (clinical drug ingredient) Drug/Non Drug Allergy documented on EMR Reaction Allergy Type Onset Date Status hay fever (uncoded) Unknown Allergy Active Reason For Referral No Information Medications Medication SIG (Take, Route, Frequency, Duration) Notes Start Date End Date Status Gabapentin 100 MG Capsule TAKE 1 CAPSULE BY MOUTH THREE TIMES DAILY Oral; Duration: 30 Active oxyCODONE HCl 10 MG Tablet TAKE ONE TABL ET BY MOUTH EVERY 4 HOURS NEEDED FOR PAIN Oral; Duration: 8 Activ e Creon 460[address] UNIT Capsule Delayed Release Particles Oral; Duration: 30 Active Immunizations Vaccine Route Administration Date Status Comme nts Influenza Unknown 10/01/2023 Refused Social History Tobacco Use: Social History Observation Description Date Details (start date - stop date) Former Smoker NA - NA Social History Drugs/Alcohol: Social Info Question Answer Notes Alcohol Screen Did you have a drink containing alcohol in the past year? No Points 0 Interpretation Negative Tobacco Use: Social Info Question Answer Notes Tobacco Use/Smoking Patient is a former smoker Additional Details Category Social Info Options Details Miscellaneous: Marital status: single Occupation: retired Problems Problem Type SNOMED Code ICD Code Onset Dates Problem Status W/U Status Risk Notes Problem Elevated liver enzymes level (365258366) Elevated liver enzymes (R74.8) Active confirmed Problem Pancreatic insufficiency (30661865) Pancreatic insufficiency (K86.89) Active confirmed Plan Of Treatment No Information Insurance Providers Payer Name Payer Address Payer Phone Subscriber Number Group Number Insured Name Patient Relationship to Insured Coverage Start Date Coverage End Date [facility] [address] [place] [phone] [id number] TERI CLAUDIO Self - patient is the insured MEDICAID OF [employer] [address] [place] [address] [phone] [id number] TERI CLAUDIO Self - patient is the [...]
--- OUTSIDE RECORDS SUMMARY | 2025-07-01 15:16 | XMS_ITS | Clinical Summary ---
Author Organization [facility] Address [address] [place] [address] Phone Care Team Providers Care Bottle And Glass Inspector Name Role Phone Rohan Kong MD Primary [...] prevent vitamin deficiency 3 Active ID-rotigotine TDS ([id number]) 3 mg/24 hrIndications:s moking cessation Place 1 [...] 2006 ZOSTER VACCINES (1 of 2) 2006 INFLUENZA VACCINE (#1) 2025 COVID-19 VACCINE (4 - 2024-2 6 season) 2025 07/12/2021, 12/05/2020, 11/01/2020 RSV VACCINE (1 - [...] Medical Devices Not on file Insurance [address] [place] [address] [employer] MEDICARE REPLACEMENT Member Subscriber Plan / Payer (Ef fective 2022-Present) Name:Chito Espinoza Relation to Subscriber:Self Name:Chito Espinoza Payer ID:Not on file Group ID:Not on file Type:Medicare Address: [place] [id number] [facility] P[facility] MEDIC[facility] REPLACEMENT Member Subscriber Plan / Payer (Ef fective 2022-Present) Name:Chito Espinoza Relation to Subscriber:Self Name:Chito Espinoza Payer ID:Not on file Group ID:Not on file Type:Medicare Address: [place] [phone] [employer] P[employer] MEDICARE REPLACEMENT Member Subscriber Plan / Payer (Ef fective 2022-Present) Name:Chito Espnioza Relation to Subscriber:Self Name:Chito Espinoza Payer ID:Not on file Group ID:Not on file Type:Medicare Address: [place] [phone] [facility] PPO MEDICARE REPLACEMENT Member Subscriber Plan / Payer (Ef fective 2022-Present) Name:hCito Espinoza Relation to Subscriber:Self Name:Chito Espinoza Payer ID:Not on file Group ID:Not on file Type:Medicare Address: [place] [id number] [employer] PPO MEDICARE REPLACEMENT [id number] [place] [address] [facility] MEDIC[facility] REPLACEMENT Care Teams Bottle And Glass Inspector Relationship Specialty Start Date End Date Rohan Kong MD PCP - General Family Medicine 11/16/22 Additional Source Comments The information contained in this document represents components of the legal health record. It is not the complete legal health record.[facility]
== END 2025-07-01 14:20 | disposition home or self-care (01) ==
LOC: HO.HMCFM 13:35
PROVIDERS: PCP Family Medicine; Visit Provider Family Medicine
DX: R19.7 Diarrhea, unspecified (principal); R63.6 Underweight; R73.03 Prediabetes

== ENCOUNTER 2025-07-04 11:14 | Outpatient (REF) | payer OTHER, SELFPAY ==
[2025-07-04 12:12] LABS: CDiff Gene PCR NEGATIVE (Negative)
[2025-07-04 13:57] LABS: E. coli EAEC Not Detected (Not Detect.); E. coli EPEC Detected (Not Detect.); E. coli ETEC Not Detected (Not Detect.); E. coli STEC Not Detected (Not Detect.); Shigella sp./EIEC Not Detected (Not Detect.)
--- OUTSIDE RECORDS SUMMARY | 2025-07-04 14:18 | XMS_ITS | Clinical Summary ---
Author Organization [facility] Address [address] [facility] [address] [place] [address] Phone Care Team Providers Care Stock Handler Floorperson Name Role Phone Rohan Kong MD Primary [...] prevent vitamin deficiency 3 Active ID-rotigotine TDS ([id number]) 3 mg/24 hrIndications:s moking cessation Place 1 [...] Medical Devices Not on file Insurance [id number] [place] [address] [employer] P[employer] MEDICARE REPLACEMENT Member Subscriber Plan / Payer (Ef fective 2022-Present) Name:Chito Espinoza Relation to Subscriber:Self Name:Chito Espinoza Payer ID:Not on file Group ID:Not on file Type:Medicare Address: [place] [phone] [facility] Member Subscriber Plan / Payer (Ef fective 2022-Present) Name:Chito Espinoza Relation to Subscriber:Self Name:Chito Espinoza Payer ID:Not on file Group ID:Not on file Type:Medicare Address: [place] [id number] [employer] P[employer] MEDICARE REPLACEMENT Member Subscriber Plan / Payer (Ef fective 2022-Present) Name:Chito Espinoza Relation to Subscriber:Self Name:Chito Espinoza Payer ID:Not on file Group ID:Not on file Type:Medicare Address: [place] [phone] [facility] Member Subscriber Plan / Payer (Ef fective 2022-Present) Name:Chito Espinoza Relation to Subscriber:Self Name:Chito Espinoza Payer ID:Not on file Group ID:Not on file Type:Medicare Address: [place] [phone] [employer] PPO MEDICARE REPLACEMENT [id number] [place] [address] [facility] Care Teams Stock Handler Floorperson Relationship Specialty Start Date End Date Rohan Kong MD PCP - General Family Medicine 11/16/22 Additional Source Comments The information contained in this document represents components of the legal health record. It is not the complete legal health record.[facility]
--- OUTSIDE RECORDS SUMMARY | 2025-07-04 14:19 | XMS_ITS | Patient Health Record ---
Author Organization [facility] Address [address] [place] [address] Care Team Providers Care Tag Stringer Name Role Phone Rohan Kong Primary Care Provider Varun Moreno Jr Unavailable Allergies Allergen (clinical drug ingredient) [...] PAIN Oral; Duration: 8 Activ e Creon 26[address] UNIT Capsule Delayed Release Particles Oral; Duration: [...] Risk Notes Problem Elevated liver enzymes level (619820967) Elevated liver enzymes (R74.8) Active confirmed Problem Pancreatic insufficiency (03098791) Pancreatic insufficiency (K86.89) Active confirmed Plan Of Treatment No Information Insurance Providers Payer Name Payer Address Payer Phone Subscriber Number Group Number Insured Name Patient Relationship to Insured Coverage Start Date Coverage End Date [facility] [address] [place] [phone] [id number] TERI CLAUDIO Self - patient is the insured MED[place] [address] [place] [phone] [id number] TERI CLAUDIO Self - patient is the [...]
== END 2025-07-04 11:15 | disposition home or self-care (01) ==
LOC: HO.LNP 11:14
PROVIDERS: Visit Provider Family Medicine
DX: R19.7 Diarrhea, unspecified (principal)
CPT/HCPCS: 87493; 87507